=== PATIENT | male | born 1980 | race Caucasian/White ===

== ENCOUNTER → 2016-03-24 | Outpatient (CLI) | payer OTHER ==
--- NOTE | 2016-04-10 02:12 | ECWPNPC ---
PATIENT NAME: NE GALAN : 1980 GENDER: MALE VISIT DATE: 03/24/2016 DISCHARGE DATE: 03/24/16 1042 VISIT LOCKED DATE TIME: PHYSICIAN: ABBI BERGER RESOURCE: ABBI BERGER REASON FOR APPOINTMENT 1. LBP HISTORY OF PRESENT ILLNESS HISTORY OF PRESENT ILLNESS: PAIN THE PATIENT DESCRIBES THE PAIN... FALL RISK SCREENING: SCREENING :NO FALLS IN THE PAST YEAR TODAY'S VISIT: NOTES: RATES PAIN TODAY 8/10. DESCRIBES PAIN CONTANT AND CENTERED IN LOW BACK. NOTES DEPRESSION HAS BEEN A FACTOR. TO SEE DR WALTON 04/09/16 FOR SURGICAL EVAL. . CURRENT MEDICATIONS TAKING EFFEXOR XR 150 MG CAPSULE EXTENDED RELEASE 24 HOUR 1 CAPSULE WITH FOOD ORALLY ONCE A DAY TAKING METHOCARBAMOL 750 MG TABLET 1 TABLET ORALLY EVERY 8 HRS TAKING TYLENOL/CODEINE #3 300-30 MG TABLET 1 TABLET NEEDED ORALLY EVERY 6 HRS PRN PAIN MDD=4 TAKING CLONAZEPAM 1 MG TABLET 1 TABLET ORALLY A THREE TAKING AMBIEN 10 MG TABLET 1 TABLET AT BEDTIME NEEDED ORALLY ONCE A DAY NOT-TAKING TRAZODONE HCL 150 MG TABLET 1 TABLET AT BEDTIME ORALLY ONCE A DAY NOT-TAKING TRAMADOL HCL 50 MG TABLET 1-2 TABLET NEEDED ORALLY EVERY 6 HRS MDD=6 MEDICATION LIST REVIEWED AND RECONCILED WITH THE PATIENT PAST MEDICAL HISTORY KIDNEY STONES 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 RUIZ SMOKER MORBID OBESITY ALLERGIES CHANTIX: IRRITABILITY: SIDE EFFECTS SOCIAL HISTORY GENERAL: TOBACCO USE ARE YOU A:NONSMOKER LEARNING BARRIERS / SPECIAL NEEDS ORIENTED TO PLAN OF CARE: PATIENT, PAIN MANAGEMENT PATIENT, ORIENTED TO PLAN OF CARE: PATIENT, PAIN MANAGEMENT PATIENT. NEW PATIENT PAIN DIARY TODAY'S VISITNOTES FROM 0-10, WHAT LEVEL IS YOUR PAIN TODAY?0 PAIN CLINIC PFS, CLERGY, PUBLIC HEALTH REFERRALS PFS REFERRAL NEEDED?NO CLERGY REFERRAL NEEDED?NO PUBLIC HEALTH REFERRAL NEEDED?NO WAS THE PROVIDER NOTIFIED OF ANY PERTINENT INFO?NO PFS REFERRAL NEEDED?NO CLERGY REFERRAL NEEDED?NO PUBLIC HEALTH REFERRAL NEEDED?NO WAS THE PROVIDER NOTIFIED OF ANY PERTINENT INFO?NO REVIEW OF SYSTEMS CONSTITUTIONAL: ANY CHANGE IN YOUR MEDICAL CONDITION? NO . CHILLS NO . FEVER NO . INFECTION: DO YOU HAVE NEW INFECTIONS? NO . DO YOU HAVE HISTORY OF MRSA? NO . MUSCULOSKELETAL: ANY NEW PATTERNS OF PAIN OR NUMBNESS? NO . GASTROENTEROLOGY: ANY NEW CHANGE IN BOWEL CONTROL? NO . GENITOURINARY: ANY NEW CHANGE IN BLADDER CONTROL? NO . IS THERE A CHANCE YOU COULD BE ? NO . HEMATOLOGY/LYMPH: DO YOU TAKE ANY BLOOD THINNERS? (FOR EXAMPLE- COUMADIN, PLAVIX, AGGRENOX, PLATEL, PRADAXA, OR XARELTO) NO . WHEN WAS YOUR LAST DOSE? DATE: TIME: . NEUROLOGY: HAVE YOU FALLEN IN THE PAST 6 MONTHS? NO . ANY NEW EXTREMITY NUMBNESS OR WEAKNESS? NO . CARDIOLOGY: DO YOU HAVE A PACEMAKER OR DEFIBRILLATOR? NO . RESPIRATORY: HAVE YOU BEEN SICK IN THE PAST WEEK? NO . FEVER NO . FLU LIKE SYMPTOMS? NO . COUGH NO . INTEGUMENTARY: DO YOU HAVE ANY RASHES OR OPEN SORES? NO . ALLERGIC/IMMUNO: ARE YOU ALLERGIC TO SHELLFISH OR IV DYE? NO . ANY NEW ALLERGIES? NO . PSYCHIATRIC: DO YOU HAVE THOUGHTS OF HURTING YOURSELF OR SOMEONE ELSE? NO . ARE YOU ABUSED, NEGLECTED, OR IN AN UNSAFE ENVIRONMENT? NO . ENDOCRINOLOGY: ARE YOU DIABETIC? NO . OTHER: DO YOU NEED ANY PRESCRIPTIONS? NO . IF YES, PLEASE LIST: ____ . ANY NEW PROBLEMS WITH YOUR MEDICATIONS? NO . WHEN DID YOU LAST EAT? ____ . WHEN DID YOU LAST DRINK? ____ . WHAT DID YOU LAST DRINK? ____ . NAME OF PERSON DRIVING YOU HOME? ____ . DO YOU HAVE ANY OTHER QUESTIONS OR CONCERNS NO . REVIEWED BY: PROVIDER: ABBI LEVINE . VITAL SIGNS WT 273 LBS, HT 69.5 IN, BMI 39.73 INDEX, BP 128/75 MM HG, HR 83 /MIN, RR 16 /MIN, TEMP 96.8 F, OXYGEN SAT % 96, SAFE IN ENV? (Y/N) YES, NA INITIALS TL 0958, REVIEWED BY: KG. EXAMINATION GENERAL EXAMINATION: PSYCHALERT , ORIENTED X 3 , , AFFECT FLAT, GOOD EYE CONTACT. LUNGS:CLEAR TO AUSCULTATION BILATERALLY. HEART:HEART RATE REGULAR. MUSCULOSKELETAL:TRIGGER POINTS:, ELICITED WITH PALPATION OVER LUMBAR PARAVERTEBRAL MUSCLES AND INTO THE SACRUM. RESTRICTION OF ROM IN THIS AREA, ELICITED WITH PALPATION OVER MID THORACIC MUSCLES WITH RESTRICITON OF RESPIRATORY EXCURCIOM NOTED. POINT TENDERNESS OVER LSP AND ACROSS THE LSA. DECREASED MUSCLE STRENGTH IN BOTH LOWER EXTREMITIES PROXIMALLY, LEFT GREATER THAN RIGHT. LEFT HIP FLEXION INCREASES BACK PAIN. ASSESSMENTS LUMBAR DISC DISPLACEMENT WITHOUT MYELOPATHY - M51.26 (PRIMARY) MYALGIA - M79.1 LUMBAR FACET ARTHROPATHY - M46.96 TREATMENT LUMBAR DISC DISPLACEMENT WITHOUT MYELOPATHY REFILL TRAMADOL HCL TABLET, 50 MG, 1-2 TABLET NEEDED, ORALLY, EVERY 6 HRS MDD=6, 30 DAY(S), 180, REFILLS 1 STOP METHOCARBAMOL TABLET, 750 MG, 1 TABLET, ORALLY, EVERY 8 HRS REFILL TYLENOL/CODEINE #3 TABLET, 300-30 MG, 1 TABLET NEEDED, ORALLY, EVERY 6 HRS PRN PAIN MDD=4, 30 DAY(S), 120, REFILLS 1 NOTES: FOLLOWUP WITH COUNSELOR FOR DEPRESSION. CLINICAL NOTES: ISTOP REGISTRY REVIEWED AND DEMNOSTRATES COMPLLIANCE. BRINGS IN MEDICATIONS WHICH IS APPROPRIATE FOR WHAT WAS DISPENSED. RECENT URINE TOXICOLOGY REVIEWED. NO UNAUTHORIZED MEDICATIONS. NO ILLICIT SUBSTANCES AND PRESCRIBED MEDICATIONS WERE PRESENT. PROCEDURE CODES FA211 ESTABILISHED PATIENT [facility] CHARGE DISPOSITION & COMMUNICATION FOLLOW UP 7 WEEKS ELECTRONICALLY SIGNED BY ANAI DIXON ON 04/09/2016 AT 12:23 PM EST DISCLAIMER : THIS IS A VISIT SUMMARY EXTRACTED FROM THE [employer] CHART. IT IS NOT A COPY OF THE [employer] PROGRESS NOTE. SEVERO
== END ==
LOC: M PAIN 10:00
PROVIDERS: ATTEND Nurse Practitioner Family
DX: M51.26 Other intervertebral disc displacement, lumbar region (principal); M79.1 Myalgia; M46.96 Unspecified inflammatory spondylopathy, lumbar region; G89.29 Other chronic pain; Z79.891 Long term (current) use of opiate analgesic; Z79.899 Other long term (current) drug therapy; F32.9 Major depressive disorder, single episode, unspecified; E66.9 Obesity, unspecified; Z72.0 Tobacco use

== ENCOUNTER → 2016-04-17 | Outpatient (CLI) | payer OTHER ==
--- NOTE | 2016-04-17 10:32 | REP ---
CERVICAL SPINE, SEVEN VIEWS: HISTORY: Spondylosis. COMPARISON: 02/28/2013 There is no acute fracture. The intervertebral discs are normal in height. Osteophytes are present on C4 through C6. The neural foramina are patent. There are 2 mm of anterior subluxation of C3 on C4 and C4 on C5 with flexion. This is not seen in neutral or extension radiographs. IMPRESSION: Degenerative change as described above. Signed by Blaine Oavlles MD 04/17/2016 12:58 P
--- NOTE | 2016-04-17 10:34 | REP ---
LUMBAR SPINE, SEVEN VIEWS: HISTORY: Spondylosis. COMPARISON: 06/22/2015. There is no acute fracture or subluxation. The L3-4 through L5-S1 intervertebral discs are decreased in height consistent with disc degeneration. The facet joints are normal in appearance. IMPRESSION: Degenerative change as described above. Signed by Blaine Ovalles MD 04/17/2016 12:58 P
== END ==
LOC: M LAB 08:55
PROVIDERS: ATTEND Neurological Surgery
DX: M47.16 Other spondylosis with myelopathy, lumbar region (principal)

== ENCOUNTER → 2016-04-21 | Outpatient (CLI) | payer OTHER ==
--- NOTE | 2016-04-21 09:31 | REP ---
MR CERVICAL SPINE WITHOUT CONTRAST: HISTORY: Spondylosis. COMPARISON: 09/06/2014 Bilateral uncinate process hypertrophy is present at the C3-4 level. This produces mild narrowing of the C3 neural foramina. A small central disc protrusion is present of the C4-5 level. There is minimal effacement of the thecal sac without spinal cord compression. The C4 neural foramina are patent. A disc bulge is present at the C5-6 level. There is minimal effacement of the thecal sac without spinal cord compression. Uncinate process hypertrophy is present on the right. This produces minimal narrowing of the right C5 neural foramen. The left C5 neural foramen is patent. There is no other disc bulge or herniation. The remaining neural foramina are patent. The spinal cord is normal in signal intensity. There is no intradural extramedullary lesion. Normal signal intensity is present in the cervical vertebral bodies. A cystic structure is present in the left retropharyngeal parapharyngeal area at the C2-3 level. The cyst measures 2.4 cm in transverse by 1 cm in AP x 4.6 cm in cephalocaudal dimensions. IMPRESSION: 1. There is cervical spondylosis at the C3-4 through C5-6 levels without spinal cord compression. There is no significant change compared to the previous study. 2. There is a cystic structure in the retro and parapharyngeal space. This may represent a branchial cleft cyst. Signed by Blaine Ovalles MD 04/21/2016 09:53 A
== END ==
LOC: M RAD 07:38
PROVIDERS: ATTEND Neurological Surgery
DX: M47.9 Spondylosis, unspecified (principal)

== ENCOUNTER → 2016-05-12 | Outpatient (CLI) | payer OTHER | LOC: M PAIN 09:00 | PROVIDERS: ATTEND Nurse Practitioner Family | DX: Z09 Encounter for follow-up examination after completed treatment for conditions other than malignant neoplasm (principal); G89.29 Other chronic pain; M51.26 Other intervertebral disc displacement, lumbar region; M79.1 Myalgia; M46.96 Unspecified inflammatory spondylopathy, lumbar region; F32.9 Major depressive disorder, single episode, unspecified; F41.9 Anxiety disorder, unspecified; F43.10 Post-traumatic stress disorder, unspecified; R48.0 Dyslexia and alexia; F17.200 Nicotine dependence, unspecified, uncomplicated; E66.9 Obesity, unspecified; Z68.41 Body mass index [BMI] 40.0-44.9, adult; Z88.8 Allergy status to other drugs, medicaments and biological substances; Z79.899 Other long term (current) drug therapy ==

== ENCOUNTER → 2016-06-20 | Outpatient (CLI) | payer OTHER ==
--- NOTE | 2016-06-24 00:53 | ECWPNPC ---
PATIENT NAME: NE GALAN : 1980 GENDER: MALE VISIT DATE: 06/20/2016 DISCHARGE DATE: 06/20/16 1144 VISIT LOCKED DATE TIME: PHYSICIAN: ABBI BERGER RESOURCE: ABBI BERGER REASON FOR APPOINTMENT 1. BACK HISTORY OF PRESENT ILLNESS HISTORY OF PRESENT ILLNESS: PAIN THE PATIENT DESCRIBES THE PAIN... FALL RISK SCREENING: SCREENING :NO FALLS IN THE PAST YEAR TODAY'S VISIT: NOTES: RATES PAIN LEVEL TODAY 8/10. DESCRIBES PAIN CONSTANT, AND IS CENTERED OVER LOW BACK AND SACRUM. STATES FELL LAST NIGHT - RIGHT HIP GAVE. HAS SEEN DR CEE AND HAD SOME RESULTS REVIEWED. WAS TOLD HE WILL NEED SURGERY IN THE FUTURE. . CURRENT MEDICATIONS TAKING EFFEXOR XR 150 MG CAPSULE EXTENDED RELEASE 24 HOUR 275MG CAPSULE WITH FOOD ORALLY ONCE A DAY IN P.M. TAKING CLONAZEPAM 1 MG TABLET 1 TABLET ORALLY A THREE TAKING AMBIEN 5 MG TABLET 1 TABLET AT BEDTIME NEEDED ORALLY BEFORE BEDTIME TAKING EFFEXOR XR 75 MG CAPSULE EXTENDED RELEASE 24 HOUR 1 CAPSULE WITH FOOD ORALLY ONCE A DAY IN A.M. TAKING TRAMADOL HCL 50 MG TABLET 1-2 TABLET NEEDED ORALLY EVERY 6 HRS MDD=6 TAKING TYLENOL WITH CODEINE #3 300-30 MG TABLET 1 TABLET NEEDED ORALLY EVERY 6 HRS PRN PAIN MDD=4 NOT-TAKING TRAZODONE HCL 150 MG TABLET 1 TABLET AT BEDTIME ORALLY ONCE A DAY MEDICATION LIST REVIEWED AND RECONCILED WITH THE PATIENT PAST MEDICAL HISTORY KIDNEY STONES CHOLELITHIASIS PER CT - S/P LAP MAXINE 05/2013 DEPRESSION/ANXIETY PTSD ADMITTED TO [facility] 2006 DYSLEXIA DDD LUMBAR SPINE - DR. RUIZ SMOKER MORBID OBESITY ALLERGIES CHANTIX: IRRITABILITY: SIDE EFFECTS SOCIAL HISTORY GENERAL: TOBACCO USE ARE YOU A:CURRENT SMOKER HOW MANY CIGARETTES A DAY DO YOU SMOKE?6-10 HOW SOON AFTER YOU WAKE UP DO YOU SMOKE YOUR FIRST CIGARETTE?WITHIN 5 MIN HOW OFTEN DO YOU SMOKE CIGARETTES?EVERY DAY PATIENT COUNSELED ON THE DANGERS OF TOBACCO USE AND URGED TO QUIT:05/12/2016 ARE YOU INTERESTED IN QUITTING?NOT READY TO QUIT COUNSELED THE PATIENT ON SMOKING EFFECTS, EDUCATION [id number]/27/2017 LEARNING BARRIERS / SPECIAL NEEDS ORIENTED TO PLAN OF CARE: PATIENT, PAIN MANAGEMENT PATIENT, ORIENTED TO PLAN OF CARE: PATIENT, PAIN MANAGEMENT PATIENT. NEW PATIENT PAIN DIARY TODAY'S VISIT NOTES, FROM 0-10, WHAT LEVEL IS YOUR PAIN TODAY? 0. PAIN CLINIC PFS, CLERGY, PUBLIC HEALTH REFERRALS PFS REFERRAL NEEDED? NO, CLERGY REFERRAL NEEDED? NO, PUBLIC HEALTH REFERRAL NEEDED? NO, WAS THE PROVIDER NOTIFIED OF ANY PERTINENT INFO? NO, PFS REFERRAL NEEDED? NO, CLERGY REFERRAL NEEDED? NO, PUBLIC HEALTH REFERRAL NEEDED? NO, WAS THE PROVIDER NOTIFIED OF ANY PERTINENT INFO? NO. PT TO SEE PCP ON 07/07/16 TO DISCUSS QUITTING SMOKING AND TREATMENT OPTIONS. REVIEW OF SYSTEMS CONSTITUTIONAL: ANY CHANGE IN YOUR MEDICAL CONDITION? NO . CHILLS NO . FEVER NO . INFECTION: DO YOU HAVE NEW INFECTIONS? NO . DO YOU HAVE HISTORY OF MRSA? NO . MUSCULOSKELETAL: ANY NEW PATTERNS OF PAIN OR NUMBNESS? NO . GASTROENTEROLOGY: ANY NEW CHANGE IN BOWEL CONTROL? NO . GENITOURINARY: ANY NEW CHANGE IN BLADDER CONTROL? NO . IS THERE A CHANCE YOU COULD BE ? NO . HEMATOLOGY/LYMPH: DO YOU TAKE ANY BLOOD THINNERS? (FOR EXAMPLE- COUMADIN, PLAVIX, AGGRENOX, PLATEL, PRADAXA, OR XARELTO) NO . WHEN WAS YOUR LAST DOSE? DATE: TIME: . NEUROLOGY: HAVE YOU FALLEN IN THE PAST 6 MONTHS? YES, PT STATES RIGHT HIP GAVE OUT, FELL DOWN YESTERDAY, PT DENIES INJURY, NO ED VISIT . ANY NEW EXTREMITY NUMBNESS OR WEAKNESS? NO . CARDIOLOGY: DO YOU HAVE A PACEMAKER OR DEFIBRILLATOR? NO . RESPIRATORY: HAVE YOU BEEN SICK IN THE PAST WEEK? NO . FEVER NO . FLU LIKE SYMPTOMS? NO . COUGH NO . INTEGUMENTARY: DO YOU HAVE ANY RASHES OR OPEN SORES? NO . ALLERGIC/IMMUNO: ARE YOU ALLERGIC TO SHELLFISH OR IV DYE? NO . ANY NEW ALLERGIES? NO . PSYCHIATRIC: DO YOU HAVE THOUGHTS OF HURTING YOURSELF OR SOMEONE ELSE? NO . ARE YOU ABUSED, NEGLECTED, OR IN AN UNSAFE ENVIRONMENT? NO . ENDOCRINOLOGY: ARE YOU DIABETIC? NO . OTHER: DO YOU NEED ANY PRESCRIPTIONS? NO . IF YES, PLEASE LIST: ____ . ANY NEW PROBLEMS WITH YOUR MEDICATIONS? NO . WHEN DID YOU LAST EAT? ____ . WHEN DID YOU LAST DRINK? ____ . WHAT DID YOU LAST DRINK? ____ . NAME OF PERSON DRIVING YOU HOME? ____ . DO YOU HAVE ANY OTHER QUESTIONS OR CONCERNS NO . REVIEWED BY: PROVIDER: ABIB LEVINE . VITAL SIGNS WT 280.6 LBS, HT 69.5 IN, BMI 40.84 INDEX, BP 124/75 MM HG, HR 90 /MIN, RR 16 /MIN, TEMP 98.4 F, OXYGEN SAT % 96%, SAFE IN ENV? (Y/N) Y, REVIEWED BY: EM. EXAMINATION GENERAL EXAMINATION: PSYCHALERT , ORIENTED X 3 , , AFFECT FLAT, GOOD EYE CONTACT. LUNGS:CLEAR TO AUSCULTATION BILATERALLY. HEART:HEART RATE REGULAR. MUSCULOSKELETAL:TRIGGER POINTS:, ELICITED WITH PALPATION OVER LUMBAR PARAVERTEBRAL MUSCLES AND INTO THE SACRUM. RESTRICTION OF ROM IN THIS AREA, ELICITED WITH PALPATION OVER MID THORACIC MUSCLES WITH RESTRICITON OF RESPIRATORY EXCURCIOM NOTED. POINT TENDERNESS OVER LSP AND ACROSS THE LSA. DECREASED MUSCLE STRENGTH IN BOTH LOWER EXTREMITIES PROXIMALLY, LEFT GREATER THAN RIGHT. LEFT HIP FLEXION INCREASES BACK PAIN. 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 POOL THERAPY WHEN AVAILABLE. CONTINUE CURRENT MEDS. KEEP WALKING AND MOVING. , ISTOP REGISTRY REVIEWED AND DEMNOSTRATES COMPLLIANCE. BRINGS IN MEDICATIONS WHICH IS APPROPRIATE FOR WHAT WAS DISPENSED. RECENT URINE TOXICOLOGY REVIEWED. NO UNAUTHORIZED MEDICATIONS. NO ILLICIT SUBSTANCES AND PRESCRIBED MEDICATIONS WERE PRESENT. PROCEDURE CODES FA211 ESTABILISHED PATIENT [facility] CHARGE DISPOSITION & COMMUNICATION FOLLOW UP 2 MONTHS ELECTRONICALLY SIGNED BY ANAI DIXON ON 06/23/2016 AT 08:47 AM EDT DISCLAIMER : THIS IS A VISIT SUMMARY EXTRACTED FROM THE [employer] CHART. IT IS NOT A COPY OF THE [employer] PROGRESS NOTE. ROSYD
== END ==
LOC: M PAIN 10:40
PROVIDERS: ATTEND Nurse Practitioner Family
DX: G89.29 Other chronic pain (principal); M51.26 Other intervertebral disc displacement, lumbar region; M79.1 Myalgia; M46.96 Unspecified inflammatory spondylopathy, lumbar region; F32.9 Major depressive disorder, single episode, unspecified; F41.9 Anxiety disorder, unspecified; F43.10 Post-traumatic stress disorder, unspecified; R48.0 Dyslexia and alexia; M51.36 Other intervertebral disc degeneration, lumbar region; F17.210 Nicotine dependence, cigarettes, uncomplicated; E66.01 Morbid (severe) obesity due to excess calories; Z68.41 Body mass index [BMI] 40.0-44.9, adult; Z88.8 Allergy status to other drugs, medicaments and biological substances; Z79.891 Long term (current) use of opiate analgesic; Z79.899 Other long term (current) drug therapy

== ENCOUNTER → 2016-07-11 | Outpatient (CLI) | payer OTHER ==
[~2016-07-11] MED LIST: ISOVUE-370 76% 100ML VIAL (Q9967) As Ordered ONE
--- NOTE | 2016-07-11 13:55 | REP ---
CT NECK WITH CONTRAST: HISTORY: Localized swelling. Contrast: Isovue 370, 75 mL. A hypodense mass is present arising along the left posterolateral wall of the oropharynx. There is anterior extension into the tongue base. There is very minimal extension across the midline posteriorly. There is inferior extension along the left posterolateral wall of the hypopharynx. There is superior extension to the level of the soft palate. There is mild mass effect on the natalie- and upper hypopharynx. The nasopharynx, larynx and subglottic trachea are normal in appearance. The salivary and thyroid glands are normal. An enlarged lymph node 1.3 cm in width is present in the left internal jugular chain at the level of the oropharynx. Small lymph nodes less than 1 cm in size are present in the right internal jugular chain, posterior triangles, submandibular and submental areas. The lung apices are clear. The visualized sinuses are clear. IMPRESSION: There is a hypodense mass present along from the left posterolateral wall of the oropharynx as described above. This may represent a hypodense neoplasm or possibly a cystic mass. . There is mild mass effect on the natalie- and upper hypopharynx. MR of the neck without and with contrast is recommended for further evaluation. Signed by Blaine Ovalles MD 07/11/2016 02:04 P
== END ==
LOC: M RAD 12:13
PROVIDERS: ATTEND Otolaryngology
DX: R22.1 Localized swelling, mass and lump, neck (principal)

== ENCOUNTER → 2016-08-08 | Outpatient (CLI) | payer OTHER | LOC: M RAD 11:05 | PROVIDERS: ATTEND Otolaryngology | DX: R22.1 Localized swelling, mass and lump, neck (principal) ==

== ENCOUNTER → 2016-08-14 | Outpatient (CLI) | payer OTHER ==
[~2016-08-14] MED LIST changes: +BACT800T5 PO; +BAYE325T12 PO; +CLON0.3T PO; +CLON1TAB PO; +DEPA1TAB3 PO; +DIGO0.25 PO; +HYDR50TA70 PO; -ISOVUE-370 76% 100ML VIAL (Q9967) As Ordered ONE; +METO1TAB7 PO; +PAXI30TA11 PO; +TRAM50TA2 PO; +TYLETAB14 PO
--- NOTE | 2016-09-03 04:17 | ECWPNPC ---
PATIENT NAME: NE GALAN : 1980 GENDER: MALE VISIT DATE: 08/14/2016 DISCHARGE DATE: 08/14/16919 VISIT LOCKED DATE TIME: PHYSICIAN: ABBI BERGER RESOURCE: ABBI BERGER REASON FOR APPOINTMENT 1. LOW BACK HISTORY OF PRESENT ILLNESS HISTORY OF PRESENT ILLNESS: PAIN THE PATIENT DESCRIBES THE PAIN... FALL RISK SCREENING: SCREENING :NO FALLS IN THE PAST YEAR TODAY'S VISIT: NOTES: RATES PAIN TODAY 8/10. DESCRIBES PAIN CONSTANT. PAIN REMAINS CENTERED OVER LOW BACK AND SACRUM WITH NO SPECIFIC RADIATION TO THE LEGS. WAS NOT ABLE TO TOLERATE LODINE - MED PRODUCED SIGNIFICANT DIZZINESS WHICH RESOLVED AFTER DISCONTINUING MED.. CURRENT MEDICATIONS TAKING CLONAZEPAM 1 MG TABLET 1 TABLET ORALLY THREE TIMES A DAY NEEDED TAKING TRAMADOL HCL 50 MG TABLET 1-2 TABLET NEEDED ORALLY EVERY 6 HRS MDD=6 TAKING TYLENOL WITH CODEINE #3 300-30 MG TABLET 1 TABLET NEEDED ORALLY EVERY 6 HRS PRN PAIN MDD=4 TAKING PAXIL 20 MG TABLET 1 TABLET IN THE MORNING ORALLY ONCE A DAY TAKING CLONIDINE HCL 0.1 MG TABLET 1 TAB ORALLY THREE TIMES A DAY NEEDED TAKING CHANTIX 1 MG TABLET 1 TABLET ORALLY TWICE A DAY NOT-TAKING EFFEXOR XR 150 MG CAPSULE EXTENDED RELEASE 24 HOUR 275MG CAPSULE WITH FOOD ORALLY ONCE A DAY IN P.M. NOT-TAKING AMBIEN 5 MG TABLET 1 TABLET AT BEDTIME NEEDED ORALLY BEFORE BEDTIME NOT-TAKING EFFEXOR XR 75 MG CAPSULE EXTENDED RELEASE 24 HOUR 1 CAPSULE WITH FOOD ORALLY ONCE A DAY IN A.M. NOT-TAKING DICLOFENAC SODIUM 75 MG TABLET DELAYED RELEASE 1 TABLET WITH FOOD OR MILK ORALLY TWICE A DAY NOT-TAKING ETODOLAC 400 MG TABLET 1 TABLET WITH FOOD ORALLY TWICE A DAY NOT-TAKING TRAZODONE HCL 150 MG TABLET 1 TABLET AT BEDTIME ORALLY ONCE A DAY MEDICATION LIST REVIEWED AND RECONCILED WITH THE PATIENT PAST MEDICAL HISTORY KIDNEY STONES CHOLELITHIASIS PER CT - S/P LAP MAXINE 05/2013 DEPRESSION/ANXIETY PTSD ADMITTED TO [facility] 2006 DYSLEXIA DDD LUMBAR SPINE - DR. RUIZ SMOKER MORBID OBESITY ALLERGIES N.K.D.A. SOCIAL HISTORY GENERAL: TOBACCO USE ARE YOU A:CURRENT SMOKER HOW MANY CIGARETTES A DAY DO YOU SMOKE?6-10 HOW SOON AFTER YOU WAKE UP DO YOU SMOKE YOUR FIRST CIGARETTE?WITHIN 5 MIN HOW OFTEN DO YOU SMOKE CIGARETTES?EVERY DAY PATIENT COUNSELED ON THE DANGERS OF TOBACCO USE AND URGED TO QUIT:05/12/2016 ARE YOU INTERESTED IN QUITTING?NOT READY TO QUIT COUNSELED THE PATIENT ON SMOKING EFFECTS, EDUCATION [id number]/27/2017 LEARNING BARRIERS / SPECIAL NEEDS ORIENTED TO PLAN OF CARE: PATIENT, PAIN MANAGEMENT PATIENT, ORIENTED TO PLAN OF CARE: PATIENT, PAIN MANAGEMENT PATIENT. NEW PATIENT PAIN DIARY TODAY'S VISIT NOTES, FROM 0-10, WHAT LEVEL IS YOUR PAIN TODAY? 0. PAIN CLINIC PFS, CLERGY, PUBLIC HEALTH REFERRALS PFS REFERRAL NEEDED?NO CLERGY REFERRAL NEEDED?NO PUBLIC HEALTH REFERRAL NEEDED?NO HAS THE PATIENT BEEN EDUCATED REGARDING HIS/HER PLAN OF CARE?YES HAS THE PATIENT BEEN EDUCATED REGARDING PAIN, THE RISK FOR PAIN, THE IMPORTANCE OF EFFECTIVE PAIN MANAGEMENT, AND THE PAIN ASSESSMENT PROCESS?YES PT TO SEE PCP ON 07/07/16 TO DISCUSS QUITTING SMOKING AND TREATMENT OPTIONS. REVIEW OF SYSTEMS REVIEWED BY: PROVIDER: ABBI LEVINE . CONSTITUTIONAL: ANY CHANGE IN YOUR MEDICAL CONDITION? NO . CHILLS NO . FEVER NO . INFECTION: DO YOU HAVE NEW INFECTIONS? NO . DO YOU HAVE HISTORY OF MRSA? NO . MUSCULOSKELETAL: ANY NEW PATTERNS OF PAIN OR NUMBNESS? NO . GASTROENTEROLOGY: ANY NEW CHANGE IN BOWEL CONTROL? NO . GENITOURINARY: ANY NEW CHANGE IN BLADDER CONTROL? NO . IS THERE A CHANCE YOU COULD BE ? NO . HEMATOLOGY/LYMPH: DO YOU TAKE ANY BLOOD THINNERS? (FOR EXAMPLE- COUMADIN, PLAVIX, AGGRENOX, PLATEL, PRADAXA, OR XARELTO) NO . WHEN WAS YOUR LAST DOSE? DATE: TIME: . NEUROLOGY: HAVE YOU FALLEN IN THE PAST 6 MONTHS? NO . ANY NEW EXTREMITY NUMBNESS OR WEAKNESS? NO . CARDIOLOGY: DO YOU HAVE A PACEMAKER OR DEFIBRILLATOR? NO . RESPIRATORY: HAVE YOU BEEN SICK IN THE PAST WEEK? NO . FEVER NO . FLU LIKE SYMPTOMS? NO . DO YOU USE ANY TYPE OF TOBACCO (SMOKE, SMOKELESS, CHEW)? ON CHANTIX - WORKING ON SMOKING CESSATION . COUGH YES . INTEGUMENTARY: DO YOU HAVE ANY RASHES OR OPEN SORES? NO . ALLERGIC/IMMUNO: ARE YOU ALLERGIC TO SHELLFISH OR IV DYE? NO . ANY NEW ALLERGIES? NO . PSYCHIATRIC: DO YOU HAVE THOUGHTS OF HURTING YOURSELF OR SOMEONE ELSE? NO . ARE YOU ABUSED, NEGLECTED, OR IN AN UNSAFE ENVIRONMENT? NO . ENDOCRINOLOGY: ARE YOU DIABETIC? NO . OTHER: DO YOU NEED ANY PRESCRIPTIONS? NO . IF YES, PLEASE LIST: ____ . ANY NEW PROBLEMS WITH YOUR MEDICATIONS? NO . WHEN DID YOU LAST EAT? ____ . WHEN DID YOU LAST DRINK? ____ . WHAT DID YOU LAST DRINK? ____ . NAME OF PERSON DRIVING YOU HOME? ____ . DO YOU HAVE ANY OTHER QUESTIONS OR CONCERNS NO . VITAL SIGNS WT 277 LBS, HT 69.5 IN, BMI 40.31 INDEX, BP 133/81 MM HG, HR 87 /MIN, RR 18 /MIN, TEMP 97.4 F, OXYGEN SAT % 96%, NA INITIALS SC 08:47, REVIEWED BY: AMBAR. EXAMINATION GENERAL EXAMINATION: PSYCHALERT , ORIENTED X 3 , , AFFECT FLAT, GOOD EYE CONTACT. LUNGS:CLEAR TO AUSCULTATION BILATERALLY. HEART:HEART RATE REGULAR. MUSCULOSKELETAL:TRIGGER POINTS:, ELICITED WITH PALPATION OVER LUMBAR PARAVERTEBRAL MUSCLES AND INTO THE SACRUM. RESTRICTION OF ROM IN THIS AREA, ELICITED WITH PALPATION OVER MID THORACIC MUSCLES WITH RESTRICITON OF RESPIRATORY EXCURCIOM NOTED. POINT TENDERNESS OVER LSP AND ACROSS THE LSA. DECREASED MUSCLE STRENGTH IN BOTH LOWER EXTREMITIES PROXIMALLY, LEFT GREATER THAN RIGHT. LEFT HIP FLEXION INCREASES BACK PAIN. ASSESSMENTS LUMBAR DISC DISPLACEMENT WITHOUT MYELOPATHY - M51.26 (PRIMARY) MYALGIA - M79.1 LUMBAR FACET ARTHROPATHY - M46.96 TREATMENT LUMBAR DISC DISPLACEMENT WITHOUT MYELOPATHY STOP ETODOLAC TABLET, 400 MG, 1 TABLET WITH FOOD, ORALLY, TWICE A DAY NOTES: CONTINUE EXERCISES AND STRETCHES. KEEP UP GOOD WORK WITH QUITTING SMOKING. PROCEDURE CODES FA211 ESTABILISHED PATIENT [facility] CHARGE DISPOSITION & COMMUNICATION FOLLOW UP 7 WEEKS (REASON: LOW BACK) ELECTRONICALLY SIGNED BY ANAI DIXON ON 09/02/2016 AT 08:23 AM EDT DISCLAIMER : THIS IS A VISIT SUMMARY EXTRACTED FROM THE [employer] CHART. IT IS NOT A COPY OF THE [employer] PROGRESS NOTE. MTDD
== END ==
LOC: M PAIN 09:00
PROVIDERS: ATTEND Nurse Practitioner Family
DX: G89.29 Other chronic pain (principal); M51.26 Other intervertebral disc displacement, lumbar region; M46.96 Unspecified inflammatory spondylopathy, lumbar region; M79.1 Myalgia; F32.9 Major depressive disorder, single episode, unspecified; F41.9 Anxiety disorder, unspecified; F43.10 Post-traumatic stress disorder, unspecified; F34.1 Dysthymic disorder; F63.81 Intermittent explosive disorder; F17.210 Nicotine dependence, cigarettes, uncomplicated; E66.9 Obesity, unspecified; F79 Unspecified intellectual disabilities; Z68.41 Body mass index [BMI] 40.0-44.9, adult; Z79.891 Long term (current) use of opiate analgesic; Z79.899 Other long term (current) drug therapy

== ENCOUNTER 2016-09-11 10:12 | Observation (INO) | payer OTHER ==
[~2016-09-11] VITALS: Ht 170.2 cm; Wt 122.5 kg
[2016-09-11] VITALS (7 sets, daily range): BP systolic 100–125; BP diastolic 56–74
[~2016-09-11 10:12] MED LIST changes: -BACT800T5 PO; -BAYE325T12 PO; -DIGO0.25 PO; -HYDR50TA70 PO; -METO1TAB7 PO; +METOPROLOL TART 25 MG TABLET PO SCH
[2016-09-11] MEDS ORDERED: dexameTHASONE 4 MG/ML 1ML VIAL (J1100) IV ONE (10:15)
[2016-09-11] MEDS ORDERED: LR 1,000 ML IV ONE (10:15)
[2016-09-11] MEDS ORDERED: fentaNYL 100 MCG/2 ML INJECTION (J3010) As Ordered ONE (13:35)
[2016-09-11] MEDS ORDERED: MIDAZOLAM INJ 2 MG/2 ML VIAL (J2250) As Ordered ONE (13:35)
[2016-09-11] MEDS ORDERED: LIDOCAINE W/EPINEPHRINE 1% 20ML VIAL As Ordered ONE (13:46)
[2016-09-11] MEDS ORDERED: BACITRACIN OINT 30GM As Ordered ONE (13:47)
[2016-09-11] MEDS ORDERED: ESMOLOL INJ 100MG/10ML VIAL As Ordered ONE ×2 (14:09→14:31)
[2016-09-11] MEDS ORDERED: PHENYLephrine HCL 500 MCG/5 ML (100MCG/ML) SYRINGE (J2370) As Ordered ONE ×2 (14:10→21:38)
[2016-09-11] MEDS ORDERED: METOPROLOL 5 MG/5 ML VIAL As Ordered ONE ×2 (14:15→16:14)
[2016-09-11] MEDS ORDERED: DIGOXIN INJ 0.5 MG/2 ML AMP (J1160) As Ordered ONE ×2 (14:43→17:21)
[2016-09-11] MEDS ORDERED: METOCLOPRAMIDE INJ 10MG/2ML VIAL (J2765) As Ordered ONE (15:19)
[2016-09-11] MEDS ORDERED: ONDANSETRON 4MG/2ML VIAL (J2405) As Ordered ONE (15:19)
[2016-09-11] MEDS ORDERED: METOCLOPRAMIDE INJ 10MG/2ML VIAL (J2765) IV PRN (15:30)
[2016-09-11] MEDS ORDERED: fentaNYL 100 MCG/2 ML INJECTION (J3010) IV PRN (15:30)
[2016-09-11] MEDS ORDERED: LR 1,000 ML IV SCH (15:30)
[2016-09-11] MEDS ORDERED: ONDANSETRON 4MG/2ML VIAL (J2405) IV PRN (15:30)
[2016-09-11] MEDS ORDERED: DIGOXIN 0.25 MG TAB PO ONE (15:45)
[2016-09-11] MEDS ORDERED: METOPROLOL TART 25 MG TABLET As Ordered ONE (16:15)
[2016-09-11 16:27] LABS: MEAN CORPUSCULAR HEMOGLOBIN 30.8 pg (27.0-33.0); MEAN CORPUSCULAR HGB CONC 34.1 g/dl (32.0-36.5); MEAN CORPUSCULAR VOLUME 90.4 fl (80.0-96.0); RED CELL DISTRIBUTION WIDTH 12.4 % (11.5-14.5)
[2016-09-11] MEDS ORDERED: NS 1,000 ML IV SCH (16:30)
[2016-09-11] MEDS ORDERED: traMADol 50 MG TAB PO PRN (16:30)
[2016-09-11] MEDS ORDERED: clonazePAM 1 MG TAB PO PRN (16:30)
[2016-09-11 16:48] LABS: ANION GAP 6 MEQ/L (8-16); BLOOD UREA NITROGEN 15 MG/DL (7-18); CALCIUM LEVEL 8.6 MG/DL (8.5-10.1); CARBON DIOXIDE LEVEL 28 MEQ/L (21-32); CHLORIDE LEVEL 105 MEQ/L (98-107); CREATININE FOR GFR 1.07 MG/DL (0.70-1.30); GLOMERULAR FILTRATION RATE > 60.0 (>60); GLUCOSE, FASTING 131 MG/DL (70-105); MAGNESIUM LEVEL 2.1 MG/DL (1.8-2.4); SODIUM LEVEL 139 MEQ/L (136-145)
[2016-09-11] MEDS ORDERED: METOPROLOL 5 MG/5 ML VIAL IV SCH (16:50)
--- NOTE | 2016-09-11 18:59 | REP ---
PORTABLE CHEST: AP portable view of the chest is performed and compared to prior study of 10/18/2013. There is mild cardiomegaly. There is mild streaky bibasilar atelectasis/infiltrate. The mediastinal silhouette is unchanged. IMPRESSION: Mild cardiomegaly. Mild bibasilar atelectasis/infiltrate. Signed by Dony Gee MD 09/11/2016 07:15 P
--- NOTE | 2016-09-11 20:00 | REPUSA ---
Clinical history: Pain, swelling. Findings: The common femoral, superficial femoral, popliteal, and other deep venous structures compre ss normally and demonstrate normal color Doppler flow. Normal venous waveforms with augmentation are seen. Incidental finding of a large right inguinal lymph node is noted measuring 3.6 x 1.7 x 1.6 cm. Impression: No evidence of deep vein thrombosis in the femoral popliteal venous system.
[2016-09-11 20:16] LABS: VENOUS O2 SATURATION 92.8 % (60.0-80.0); VENOUS PARTIAL PRESSURE CO2 40.7 mmHg (38.0-50.0); VENOUS PARTIAL PRESSURE O2 63.6 mmHg (30.0-50.0); VENOUS STANDARD HCO3 22.7 MEQ/L; VENOUS TOTAL CO2 24.4 MEQ/L (24.0-28.0)
--- NOTE | 2016-09-11 20:21 | HPEPDOC ---
Medical History and Physical Date of Admission Sep 11, 2016 at 18:08 History and Physical PRIMARY CARE PROVIDER: Dr. Trejo ATTENDING: Nan Bennett MD CHIEF COMPLAINT: Rapid heart rate HISTORY OF PRESENT ILLNESS: This is a 35-year-old male past medical history of obesity, PTSD, depression, tobacco abuse, who presented to the OR for resection of a posterior pharyngeal cyst/mass and had gone into atrial fibrillation with rapid ventricular response. Dr. Arndt had called me stating that the patient is in rapid A. fib and has been in contact with Dr. Echavarria who recommended digoxin. Upon evaluation of the patient, the patient was noted to be in atrial fibrillation with RVR and very hypotensive, requiring phenylephrine drip. I did speak with Dr. Echavarria, who recommended another dose of digoxin, as well as a stat echocardiogram, and hold off on cardioversion. The patient's potassium was greater than 4, magnesium greater than 2. TSH within normal limits. EKG with no acute ST changes however in atrial fibrillation with rapid ventricular response. The patient had remained asymptomatic, denied chest pain/shortness of breath/palpitations. The patient will be admitted to the intensive care unit. I have also discussed the case with Dr. Mejia, we will place a central line, so that the patient may continue pressors until the etiology of the patient's underlying severe hypotension is known. Patient denied cough/fevers/chills/nausea/vomiting/rashes/diarrhea. No sources of infection. He did state that he had symptoms of palpitations many times prior to presentation, however had not had this worked up. PAST MEDICAL HISTORY: As per HPI PAST SURGICAL HISTORY: Tonsillectomy, left knee surgery, cholecystectomy, lithotripsy SOCIAL HISTORY: Occasionally smokes tobacco, on Chantix. Denies alcohol or illicit drug use. FAMILY HISTORY: No family history of heart disease ALLERGIES: Please see below. REVIEW OF SYSTEMS: HEENT: Denies sore throat/headache CARDIOVASCULAR: Denies chest pain. + palpitations RESPIRATORY: Denies shortness of breath/cough GASTROINTESTINAL: denies nausea/vomiting GENITOURINARY: Denies dysuria/urinary urgency. MUSCULOSKELETAL: Denies myalgias/arthralgias NEUROLOGICAL: Denies any focal weakness HOME MEDICATIONS: Please see below. PHYSICAL EXAMINATION: Vitals: (see below) General: No acute distress, laying comfortably in bed. HEENT: Moist mucous membranes. Neck: No JVD noted. Patient does have an enlarged neck L>R from this retro pharyngeal cyst/tumor. No lymphadenopathy. Cardiac: Irregularly irregular. Tachycardic. No murmurs Pulm: Diminished breath sounds at the bases b/l. No wheezing, rhonchi Abd: NT/ND + BS. Obese Ext: No edema or cyanosis LABORATORY DATA: See below. IMAGING: CXR 09/11/16 IMPRESSION: Mild cardiomegaly. Mild bibasilar atelectasis/ infiltrate. MICROBIOLOGY: Please see below. ASSESSMENT/PLAN: 1. Shock, in the setting of atrial fibrillation with rapid ventricular response. Patient had received greater than 3 L of fluids in the OR/PACU. His chest x-ray relieved pulmonary congestion, and fluids will be held at this time. Patient had received digoxin/esmolol/metoprolol with minimal improvement of his heart rate. We will continue the patient on pressor therapy and monitor in the intensive care unit. The patient is currently having an echocardiogram stat to rule out cardiac tamponade/systolic heart failure, with Dr. Echavarria on consultation. He remains asymptomatic. No chest pain/palpitations/shortness of breath. His cardiac enzymes are thus far negative. His magnesium is greater than 2 and his potassium is greater than 4. His TSH is within normal limits. ? Reaction to anesthesia. Given this presentation, we will also rule out a pulmonary embolism as well with a CTA of the chest. 2. History of depression - continue home meds 3. History of tobacco abuse- cessation counseling 4. History of nephrolithiasis status post lithotripsy 5. 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 We'll need to follow-up with Dr. Navarro. 6. Had been taking clonidine for anxiety and sleep?? Will d/c. May have contributed the hypotension. Monitor for rebound HTN. 7. ?JANELLE - will need outpt sleep study DVT prophylaxis- heparin subcutaneous Patient is in critical condition, and being monitored in the intensive care unit. Patient will be followed by Dr. uJnie Mckeon starting 09/12/16 at 7 AM. Vital Signs Vital Signs Date Time Temp Pulse Resp B/P (MAP) Pulse Ox O2 Delivery O2 Flow Rate FiO2 09/11/16 17:51 97.0 136 16 112/58 (76) 95 Room Air 09/11/16 17:18 3 Laboratory Data Labs 24H Laboratory Tests 2 09/11/16 16:06: Anion Gap 6L, Glomerular Filtration Rate > 60.0, Blood Urea Nitrogen 15, Creatinine 1.07, Sodium Level 139, Potassium Level 5.0, Chloride Level 105, Carbon Dioxide Level 28, Calcium Level 8.6, Total Creatine Kinase 131, Magnesium Level 2.1, Creatine Kinase MB 1.0, Creatine Kinase MB Relative Index 0.76, Troponin I < 0.02, Thyroid Stimulating Hormone (TSH) 0.394 CBC/BMP Laboratory Tests 09/11/16 16:06 Red Blood Count 4.86, Mean Corpuscular Volume 90.4, Mean Corpuscular Hemoglobin 30.8, Mean Corpuscular Hemoglobin Concent 34.1, Red Cell Distribution Width 12.4 , Calcium Level 8.6, Total Creatine Kinase 131 Home Medications Scheduled (Depakote) 500 Mg Tab, 1,000 MG PO BID Clonidine Hydrochloride (Clonidine HCl) 0.3 Mg Tab, 0.3 MG PO QHS Paroxetine Hydrochloride (Paxil) 30 Mg Tab, 30 MG PO DAILY Scheduled PRN Acetaminophen/Codeine (Tylenol/Codeine #3 300-30 mg) 1 Tab Tab, 1 TAB PO Q4HP PRN for PAIN Clonazepam (Clonazepam) 1 Mg Tab, 1 MG PO TIDP PRN for ANXIETY/AGITATION Tramadol HCl (Tramadol HCl) 50 Mg Tab, 50 MG PO Q6HP PRN for PAIN Allergies Coded Allergies: Varenicline (Verified Allergy, Unknown, 10/20/13) NAN BENNETT MD Sep 11, 2016 20:20
[2016-09-11] MEDS ORDERED: PHENYLEPHRINE HCL INJ 50 MG in D5W 500 ML IV SCH ×2 (20:30)
[2016-09-11] MEDS ORDERED: ISOVUE-370 76% 100ML VIAL (Q9967) As Ordered ONE (20:40)
[2016-09-11] MEDS ORDERED: cloNIDine 0.1 MG TAB PO SCH (21:00)
[2016-09-11] MEDS ORDERED: LevoFLOXacin IV 500 MG in APPROPRIATE DILUENT 1 EA IV SCH (21:00)
[2016-09-11] MEDS ORDERED: SODIUM CHLORIDE 0.9% 1000 ML IV ONE (21:00)
[2016-09-11] MEDS ORDERED: AMIODARONE 200 MG TAB (PACERONE) PO ONE (21:15)
--- NOTE | 2016-09-11 21:20 | REPUSA ---
CT angiogram of the chest Clinical statement: Chest pain and shortness of breath. Technique: Multiple axial CT images were obtained from the thoracic inlet through the upper abdomen a fter a bolus administration of nonionic intravenous contrast. Coronal and sagittal reconstructions we re also obtained. No comparison is available. Findings: The pulmonary arteries are well-opacified with contrast, with no intraluminal filling defec ts to suggest embolism. The thoracic aorta is unremarkable. Thyroid gland is within normal limits. Th ere is no thoracic lymphadenopathy. There are no pericardial or pleural effusions. There are linear i nfiltrate in the lower lungs bilaterally. Limited imaging of the upper abdomen is unremarkable. There are no suspicious osseous lesions. Impression: 1. No evidence of pulmonary embolism. 2. Bilateral lower lobe infiltrate/atelectasis.
--- NOTE | 2016-09-11 21:22 | ECHO ---
DATE OF PROCEDURE: 09/11/2016 REFERRING PHYSICIAN: Dr. Elton Bennett INDICATION: 1. Atrial fibrillation. 2. Hypotension, unspecified. HEIGHT: 67 inches. WEIGHT: 270 pounds. 2D MEASUREMENTS: Aortic root: 3.6 cm Proximal ascending aorta: 3.0 cm Left atrium: 4.0 cm Ventricular septum: 1.29 cm Posterior wall: 1.27 cm Left ventricle diastole: 4.5 cm Left ventricle systole: 3.3 cm Right ventricle: 4.5 cm Inferior vena cava: 1.8 cm with more than 50% respiratory variation DOPPLER MEASUREMENTS: Aortic valve velocity: 106 cm/s LVOT velocity: 76.7 cm/s LVOT VTI: 13.2 cm Mitral deceleration time: 250 ms Pulmonary artery systolic pressure: 41 mmHg DESCRIPTION: Rhythm was atrial fibrillation with moderately rapid ventricular rate. This was a moderately technically difficult echocardiogram. This was a 2D, M-mode, color flower Doppler and pulse wave Doppler examination. CONCLUSIONS: 1. Normal left ventricle internal dimensions. Mild concentric left ventricle hypertrophy. 2. Normal left ventricular (LV) wall motion and wall thickening. Normal LV systolic function. Left ventricular ejection fraction (LVEF) 60% by visual estimate. Unable to assess LV diastolic function due to presence of atrial fibrillation with rapid ventricular response. 3. Normal left atrial size. 4. Inferior vena cava was somewhat suspicious for volume depletion. 5. Normal right ventricle size and systolic function. 6. Suggestive of moderate elevation of pulmonary artery systolic pressure (41 mmHg). 7. Appearance of a tiny pericardial effusion. No diastolic chamber collapse. Copies To: Dr. Elton Arndt
[2016-09-11] MEDS ORDERED: HEPARIN SOD (PORCINE) 5000 UNITS/ML VIAL IV ONE (21:30)
[2016-09-11] MEDS ORDERED: HEPARIN SOD (PORCINE) 5000 UNITS/ML VIAL IV SCH (21:30)
[2016-09-11] MEDS ORDERED: PHENYLEPHRINE INJ 10MG/ML VIAL (J2370) As Ordered ONE (21:38)
[2016-09-11] MEDS ORDERED: HEPARIN 25,000 UNITS/250 ML D5W BAG (100 UNITS/ML) IV SCH (22:00)
[2016-09-11] MEDS: DIVALPROEX 500 MG TAB PO SCH (22:46)
--- NOTE | 2016-09-11 22:54 | CR ---
DATE OF CONSULTATION: 09/11/2016 CARDIOLOGY CONSULTATION REASON FOR CONSULTATION: Atrial fibrillation with rapid ventricular rate. Hypotension unspecified. HISTORY OF THE PRESENT ILLNESS: Mr. Antonio Zambrano is a pleasant 35-year-old man with morbid obesity who was here earlier today to undergo resection of a posterior pharyngeal cyst/mass. During induction, he was noted to have atrial fibrillation with rapid ventricular response and patient was hypotensive. Heart rate control did not respond well to intravenous (IV) beta jessica. He was then given a dose of digoxin IV without complete control. The surgery was canceled, and the patient was admitted to the intensive care unit. He has been placed on phenylephrine IV for blood pressure support. The patient has no knowledge of any prior heart disease. No knowledge of any prior atrial fibrillation. No history of systemic hypertension. He takes clonidine 0.3 mg nightly to help him sleep and for anxiety and his last dose was last evening. CARDIAC SYMPTOM STATUS: The patient is aware of brief palpitations infrequently in the evening at bedtime prior to taking clonazepam and clonidine and once he takes these medications, these palpitations resolve. No presyncope or syncope. No lightheadedness. No exertional dyspnea. No leg or ankle swelling. No chest, neck, jaw or extremity pain, pressure, tightness, squeezing or heaviness with or without exertion. No embolic events. No intermittent claudication. PAST MEDICAL AND SURGICAL HISTORY: Morbid obesity. Post-traumatic stress disorder (PTSD). Depression. Tobacco use disorder. Posterior pharyngeal cyst/mass. Anxiety. Insomnia. No history of thyroid disease. Status post tonsillectomy. Prior left knee surgery. Status post lithotripsy. Status post cholecystectomy. SOCIAL HISTORY: Occasional cigarette smoking. No alcohol. No illicit drug use. Legally . Resident of [place]. FAMILY HISTORY: No family history of heart disease. REVIEW OF SYSTEMS: Palpitations as noted above. All other 10-point review of systems otherwise negative. ADVERSE DRUG REACTIONS: CHANTIX. MEDICATIONS PRIOR TO ADMISSION: - Tylenol #3 one tablet every 4 hours as needed for pain - clonazepam 1 mg three times a day as needed for anxiety or agitation - clonidine 0.3 mg nightly - Depakote 1000 mg twice a day - Paxil 30 mg daily - tramadol 50 mg every 6 hours as needed for pain The patient's present medications in the hospital are as follows: - aspirin 325 mg daily - Paxil 30 mg daily - Depakote 1000 mg twice a day - phenylephrine currently running at 5 mcg per minute IV - clonazepam 1 mg three times a day as needed for anxiety/agitation - tramadol 50 mg every 6 hours as needed for pain - IV normal saline at 100 mL per hour IV - He received a dose of digoxin 0.25 mg IV at 1545 hours today PHYSICAL EXAMINATION: Pleasant morbidly obese man who appears his chronologic age, who was not in any respiratory or psychologic distress. Height 67 inches, weight 122.5 kg, body mass index (BMI) 42.3. Respiratory rate 10, blood pressure 116/68 on phenylephrine 5 mcg per minute, pulse 95 (irregularly irregular). Temperature 97.0. Oxygen saturation 96% on room air. No conjunctival pallor, scleral icterus or xanthomas. Edentulous. Oral mucosa was moist and without pallor or cyanosis. Jugular venous pulsations were at 5 cm. Trachea midline. No palpable thyroid. No clubbing, nail bed cyanosis or splinter hemorrhages. No skin lesions, skin pallor or icterus. Oriented to person, place and time. Mood and affect normal. Curvature of the spine normal. Gait not appropriate to test at this time due to hypotension for which he is on phenylephrine IV. Gross motor strength and tone appear normal. No muscle atrophy, fasciculations, or tremors. Respiratory expansion effort was good. No crackles or wheezes. No palpable apex beat. No left parasternal lifts, heaves, thrills, or palpable heart sounds. First and second heart sounds were variable intensity. No S3 or murmurs or pericardial friction rubs. Carotids were normal in volume and contour and without bruits. No palpable abdominal aorta but difficult to palpate due to abdominal obesity. No abdominal bruits. Femoral pulses difficult to palpate due to obesity. Pedal pulses normal. No lower extremity edema. No varicose veins. Abdomen was obese, soft, nontender with normal bowel sounds. No hepatosplenomegaly but difficult to assess due to abdominal obesity. Liver span unable to determine due to abdominal obesity. Stool for occult blood to be ordered as the patient has been started on IV heparin. I have independently visualized the patient's portable AP sitting chest x-ray from 09/11/2016 at 6:35 p.m. Possible cardiomegaly but difficult to know because of a portable AP technique. No pulmonary vascular redistribution. No peribronchial cuffing. Increased lung markings possibly because of suboptimal inspiration. No pleural effusions. No pneumothorax. No alveolar edema. Laboratory work 09/11/2016 was reviewed. WBC 8.0, hemoglobin 15.0, hematocrit 43.9, platelets 190. Sodium 139, potassium 5.0, chloride 105, CO2 28, BUN 15, creatinine 1.07, estimated GFR greater than 60, glucose 131, magnesium 2.1, CPK total 131, CPK-MB 1.0, troponin I less than 0.02, BNP 52.7, TSH 0.394. Electrocardiogram 09/11/2016 at 1539 hours shows atrial fibrillation with rapid ventricular response, heart rate 129 beats per minute (BPM), poor R wave progression, minor nonspecific T wave abnormalities. No prior ECG available for comparison. ASSESSMENT AND RECOMMENDATIONS: 1. Atrial fibrillation. I suspect atrial fibrillation is paroxysmal, but I have no absolute proof of that. His left atrium on the echocardiogram Doppler was 4.0 cm, which suggests normal left atrial size. He does not drink alcohol, and his thyroid-stimulating hormone (TSH) was normal. His CHADS-VASc score is 0. Options for control of rapid ventricular response are limited because of the patient's hypotension. Because of hypotension, I do not wish to use beta jessica or verapamil or diltiazem. He has started to respond to digoxin IV. I am going to place the patient on IV heparin for now. I will attempt to convert the patient with some amiodarone IV. Because of hypotension for which he is on phenylephrine IV, I will not give amiodarone IV because of risk of provoking further hypotension. 2. Hypotension. The hypotension likely has a large contribution from large dose of clonidine. The patient takes clonidine 0.3 mg nightly with his last dose yesterday night, and he has no history of systemic hypertension. In the future, it is my recommendation that this patient not be placed on clonidine. As time passes, I think the clonidine will progressively wear off and his blood pressure will improve. He may have had some hypotension related to relative hypovolemia because he had been nothing by mouth (n.p.o.) prior to his operation. Loss of atrial kick and the mildly rapid ventricular rate may also contribute a role to the hypotension. Agree with continuation of IV normal saline at 100 mL per hour IV and agree with use of phenylephrine IV for blood pressure support. Will continue to follow with you. Echocardiogram Doppler has been reported under separate cover. 3. Cardiomegaly. The echocardiogram Doppler shows mild concentric left ventricular hypertrophy. Right ventricle appears to be at the upper limits of normal in size. Normal left ventricular (LV) systolic function. 4. Morbid obesity. Recommend the patient be on a DASH diet while in the hospital. Long-term, I would like to see him on a more whole food, plant-based diet. Copy To: Torito Trejo, Physician Equipment Driver Margaret Macario, BRENDA
[2016-09-11] MEDS ORDERED: diphenhydrAMINE 50 MG CAP PO ONE (23:00)
[2016-09-12] VITALS (7 sets, daily range): BP systolic 111–126; BP diastolic 56–75
--- NOTE | 2016-09-12 00:31 | ECGEPIP ---
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
[2016-09-12 04:35] LABS: MEAN CORPUSCULAR HEMOGLOBIN 31.1 pg (27.0-33.0); MEAN CORPUSCULAR VOLUME 88.8 fl (80.0-96.0); RED CELL DISTRIBUTION WIDTH 12.5 % (11.5-14.5)
[2016-09-12 04:53] LABS: ANION GAP 10 MEQ/L (8-16); BLOOD UREA NITROGEN 13 MG/DL (7-18); CALCIUM LEVEL 8.4 MG/DL (8.5-10.1); CARBON DIOXIDE LEVEL 27 MEQ/L (21-32); CHLORIDE LEVEL 104 MEQ/L (98-107); CREATININE FOR GFR 1.04 MG/DL (0.70-1.30); GLOMERULAR FILTRATION RATE > 60.0 (>60); GLUCOSE, FASTING 118 MG/DL (70-105); MAGNESIUM LEVEL 2.2 MG/DL (1.8-2.4); POTASSIUM SERUM 4.2 MEQ/L (3.5-5.1); SODIUM LEVEL 141 MEQ/L (136-145)
[2016-09-12] MEDS: DIVALPROEX 500 MG TAB PO SCH (08:10)
[2016-09-12] MEDS ORDERED: METOPROLOL SUCC (TopROL XL) 50MG **XL** TAB PO SCH (09:00)
[2016-09-12] MEDS ORDERED: ASPIRIN 325 MG TAB PO SCH (09:00)
[2016-09-12] MEDS ORDERED: PARoxetine 10MG TABLET PO SCH (09:00)
[2016-09-12] MEDS ORDERED: DIGOXIN 0.25 MG TAB PO SCH (09:00)
[2016-09-12] MEDS ORDERED: BAYE325T12 PO (09:21)
[2016-09-12] MEDS ORDERED: DIGO0.25 PO (09:21)
[2016-09-12] MEDS ORDERED: METO1TAB7 PO (09:21)
--- NOTE | 2016-09-12 17:04 | ECGEPIP ---
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
--- NOTE | 2016-09-13 17:05 | DSES ---
DATE OF ADMISSION: 09/11/2016 DATE OF DISCHARGE: 09/12/2016 CONSULTATIONS: Dr. Echavarria, cardiology. DISCHARGE DIAGNOSIS: Hypotension. SECONDARY DIAGNOSES: 1. Atrial fibrillation with rapid ventricular response. 2. Tobacco abuse. 3. Depression. 4. Pharyngeal cyst/mass. 5. Posttraumatic stress disorder (PTSD). 6. Anxiety. HOSPITAL COURSE: The patient is a 35-year-old man who presented to the operating room (OR) for resection of posterior pharyngeal cyst/mass. During induction he was found to be in atrial fibrillation with rapid ventricular response, and hypotensive. Dr. Arndt contacted Dr. Echavarria directly, who recommended digoxin. The patient was hypotensive and started on phenylephrine drip. The patient received additional digoxin, as well as a stat echocardiogram. The patient's electrolytes were checked and he was found to be optimized with potassium greater than four and magnesium greater than two. He got a thyroid stimulating hormone (TSH) within normal limits, and an electrocardiogram (EKG) that showed atrial fibrillation with rapid ventricular response without any ST changes. The patient remained asymptomatic during this episode, and he was admitted to the medical intensive care unit. While in the medical intensive care unit, the patient was received esmolol and metoprolol. It was of note the patient had recently started clonidine 0.3 mg at bedtime two days prior to his hospitalization. He had also been nothing by mouth, and there was concern that this may have resulted in his hypotension and the patient's atrial fibrillation. Overnight, the patient's blood pressure stabilized. He was weaned off pressors in the early evening hours of 09/11, and remained hemodynamically stable overnight. This morning, once the patient's blood pressure remained stable. He has been started on digoxin and metoprolol daily. His heart rate is well controlled. He again remains completely asymptomatic, doing well. SUBJECTIVE: Today the patient reports he feels great. He denies palpitations, lightheadedness, dizziness, nausea, vomiting, chest pressure, fevers, chills. OBJECTIVE: VITAL SIGNS: Temperature 98.7, he has remained afebrile. Heart rate 91 with activity just above 100, blood pressure 119/56, oxygen saturation 94% on room air. GENERAL: He is a middle-aged man, obese. He is lying in bed at a 30-degree angle. He is awake, alert, oriented times three. He has pink hair, numerous tattoos, and piercings. He does not appear to be in any distress whatsoever. HEENT: Cranial nerves II through XII are grossly intact. He has moist mucous membranes. No elevation of central venous pressure (CVP). CARDIOVASCULAR: S1, S2, irregularly irregular. He is not tachycardic at the time of my exam. RESPIRATORY: Clear. ABDOMEN: Obese. EXTREMITIES: No clubbing, cyanosis or edema. LABORATORY DATA: WBC 14.0 up from 8 yesterday, hemoglobin 15.0, platelet count 245. Chemistry panel: Sodium 141, potassium 4.2, chloride 104, bicarbonate 27, BUN 13, creatinine 1.0. He had two sets of cardiac enzymes which were negative. BNP which was unremarkable. TSH was within normal limits. He did have an arterial blood gas (ABG) which revealed a normal pH, pCO2, and elevated pO2 of 63.6. He had a UA which was unremarkable. Blood cultures have been drawn and are currently pending. IMAGING: The patient did undergo a CT angiography of the chest which did not reveal any pulmonary embolism (PE), but bilateral lower lobe infiltrates/atelectasis. He did have a vascular ultrasound that was negative for any deep venous thrombosis (DVT ) bilaterally. He did undergo a chest x-ray as well, which revealed mild cardiomegaly, mild bibasilar atelectasis/infiltrates. ASSESSMENT AND PLAN: This is a 35-year-old man with resolved hypotension and newly-discovered atrial fibrillation with rapid ventricular response. 1. Hypotension. The patient was asymptomatic throughout the whole episode. He was recently started on clonidine 0.3 mg at bedtime. He had taken two doses of this and had been nothing by mouth. I have spoken with Dr. Echavarria and we fell that this may have been the most influential etiology for his hypotension. With cessation of this medication, it has resolved. For now, would simply monitor. 2. Atrial fibrillation with rapid ventricular response. There is some concern that the rapid ventricular response may have played a role in the hypotension as well. He is now rate controlled. He received digoxin. His TSH is normal and echocardiogram completed at bedside which did not reveal any significant etiology or valvular dysfunction for his atrial fibrillation. His CHADS-VASC score is zero. Dr. Echavarria briefly had the patient on a heparin drip, but he will be discharged on full-dose aspirin. We will discontinue the heparin drip. He is rate controlled with digoxin 0.25 mg daily and metoprolol succinate 50 mg daily. He will followup in Dr. Echavarria's office within one month. He is asymptomatic. It is difficult to say if this is acute, given he has a history of complaints of intermittent palpitations. Dr. Echavarria and I suspect this may be more of a chronic problem. 3. Cardiomegaly with mild left concentric left ventricular hypertrophy (LVH). He was actually hypotensive earlier in his stay. He may have some longstanding essential hypertension. He has been started on metoprolol succinate. Would avoid clonidine in the future. 4. Morbid obesity. He has been recommended for a DASH diet, and exercise regimen has been suggested. 5. Depression. Continue with Paxil. 6. Anxiety. Continue with Klonopin and Depakote. 7. Chronic pain. Continue with tramadol and Tylenol No.3. 8. Tobacco abuse. Cessation counseling provided. DISPOSITION: The patient is hemodynamically stable. He is at his functional baseline. His clinical symptom has resolved. He is being discharged home to the care of his family. He is to followup with his primary care provider (PCP) within seven days , and followup with ears, nose, and throat (ENT) within two weeks. Followup with cardiology within one month. His activity is as prior to admission. His diet is as prior to admission. He is to return to the ER if symptoms worsen. DISCHARGE MEDICATIONS: - aspirin 325 mg daily - digoxin 0.25 mg daily - metoprolol succinate 50 mg daily - Tylenol No.3 300/30 one tablet every four hours as needed for pain - clonazepam 1 mg three times a day as needed for anxiety, agitation - Depakote 1000 mg twice a day - paroxetine 30 mg daily - tramadol 50 mg every six hours as needed for pain Greater than 30 minutes were spent organizing disposition. ROSYD
[2016-12-01] MEDS ORDERED: HYDR50TA70 PO (13:36)
== END 2016-09-12 11:22 | disposition home or self-care (01) ==
LOC: M SDC 10:12 → M ICU 18:08
PROVIDERS: ADMIT Internal Medicine; ATTEND Otolaryngology
DX: I48.91 Unspecified atrial fibrillation (principal); I95.9 Hypotension, unspecified; Z53.09 Procedure and treatment not carried out because of other contraindication; J39.2 Other diseases of pharynx; F17.210 Nicotine dependence, cigarettes, uncomplicated; E66.01 Morbid (severe) obesity due to excess calories; F43.10 Post-traumatic stress disorder, unspecified; F41.9 Anxiety disorder, unspecified; F31.9 Bipolar disorder, unspecified; G47.00 Insomnia, unspecified; G89.29 Other chronic pain; Z79.82 Long term (current) use of aspirin; Z79.899 Other long term (current) drug therapy
CPT/HCPCS: 31512; 36415; 71010; 71275; 80048; 81001; 82550; 82553; 82803; 83605; 83735; 83880; 84443; 85027; 85730; 87040; 93000; 93970; 96374; 96375; 96376; J1100; J1160; J1956; J2250; J2370; J2405; J2765; J3010; Q9967

== ENCOUNTER → 2016-10-03 | Outpatient (CLI) | payer OTHER ==
[~2016-10-03] MED LIST changes: +BACT800T5 PO; +BAYE325T12 PO; +DIGO0.25 PO; +HYDR50TA70 PO; +METO1TAB7 PO; -METOPROLOL TART 25 MG TABLET PO SCH
--- NOTE | 2016-10-19 23:25 | ECWPNPC ---
PATIENT NAME: NE GALAN : 1980 GENDER: MALE VISIT DATE: 10/03/2016 DISCHARGE DATE: 10/03/16 1016 VISIT LOCKED DATE TIME: PHYSICIAN: ABBI BERGER RESOURCE: ABBI BERGER REASON FOR APPOINTMENT 1. LOW BACK HISTORY OF PRESENT ILLNESS HISTORY OF PRESENT ILLNESS: PAIN THE PATIENT DESCRIBES THE PAIN... FALL RISK SCREENING: SCREENING :NO FALLS IN THE PAST YEAR TODAY'S VISIT: NOTES: RATES PAIN TODAY 6/10. DESCRIBES PAIN CONSTANT AND IS CENTERED IN LOW BACK.WAS RECENTLY HOSPITALIZED FOR RESECTION/REMOVAL OF PHARANGEAL MASS- WAS FOUND TO HAVE AFIB AND IS NOW SEEING CARDIOLOGY.. CURRENT MEDICATIONS TAKING CLONAZEPAM 1 MG TABLET 1 TABLET ORALLY THREE TIMES A DAY NEEDED TAKING TRAMADOL HCL 50 MG TABLET 1-2 TABLET NEEDED ORALLY EVERY 6 HRS MDD=6 TAKING TYLENOL WITH CODEINE #3 300-30 MG TABLET 1 TABLET NEEDED ORALLY EVERY 6 HRS PRN PAIN MDD=4 TAKING PAXIL 20 MG TABLET 1 TABLET IN THE MORNING ORALLY ONCE A DAY TAKING METOPROLOL SUCCINATE ER 50 MG TABLET EXTENDED RELEASE 24 HOUR 1 TABLET ORALLY ONCE A DAY TAKING DIGOXIN 250 MCG TABLET 1 TABLET ORALLY ONCE A DAY TAKING ASPIRIN 325 MG TABLET DELAYED RELEASE 1 TABLET ORALLY ONCE A DAY NOT-TAKING CLONIDINE HCL 0.1 MG TABLET 1 TAB ORALLY THREE TIMES A DAY NEEDED NOT-TAKING CHANTIX 1 MG TABLET 1 TABLET ORALLY TWICE A DAY NOT-TAKING EFFEXOR XR 150 MG CAPSULE EXTENDED RELEASE 24 HOUR 275MG CAPSULE WITH FOOD ORALLY ONCE A DAY IN P.M. NOT-TAKING AMBIEN 5 MG TABLET 1 TABLET AT BEDTIME NEEDED ORALLY BEFORE BEDTIME NOT-TAKING EFFEXOR XR 75 MG CAPSULE EXTENDED RELEASE 24 HOUR 1 CAPSULE WITH FOOD ORALLY ONCE A DAY IN A.M. 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 CONSTITUTIONAL: ANY CHANGE IN YOUR MEDICAL CONDITION? YES, IS NOW ON HEART MEDICATION FOR REGULATING HEART RATE. . CHILLS NO . FEVER NO . INFECTION: DO YOU HAVE NEW INFECTIONS? NO . DO YOU HAVE HISTORY OF MRSA? NO . MUSCULOSKELETAL: ANY NEW PATTERNS OF PAIN OR NUMBNESS? NO . GASTROENTEROLOGY: ANY NEW CHANGE IN BOWEL CONTROL? NO . GENITOURINARY: ANY NEW CHANGE IN BLADDER CONTROL? NO . IS THERE A CHANCE YOU COULD BE ? NO . HEMATOLOGY/LYMPH: DO YOU TAKE ANY BLOOD THINNERS? (FOR EXAMPLE- COUMADIN, PLAVIX, AGGRENOX, PLATEL, PRADAXA, OR XARELTO) NO . WHEN WAS YOUR LAST DOSE? DATE: TIME: . NEUROLOGY: HAVE YOU FALLEN IN THE PAST 6 MONTHS? NO . ANY NEW EXTREMITY NUMBNESS OR WEAKNESS? NO . CARDIOLOGY: DO YOU HAVE A PACEMAKER OR DEFIBRILLATOR? NO . RESPIRATORY: HAVE YOU BEEN SICK IN THE PAST WEEK? NO . FEVER NO . FLU LIKE SYMPTOMS? NO . COUGH NO . INTEGUMENTARY: DO YOU HAVE ANY RASHES OR OPEN SORES? NO . ALLERGIC/IMMUNO: ARE YOU ALLERGIC TO SHELLFISH OR IV DYE? NO . ANY NEW ALLERGIES? NO . PSYCHIATRIC: DO YOU HAVE THOUGHTS OF HURTING YOURSELF OR SOMEONE ELSE? NO . ARE YOU ABUSED, NEGLECTED, OR IN AN UNSAFE ENVIRONMENT? NO . ENDOCRINOLOGY: ARE YOU DIABETIC? NO . OTHER: DO YOU NEED ANY PRESCRIPTIONS? NO . IF YES, PLEASE LIST: ____ . ANY NEW PROBLEMS WITH YOUR MEDICATIONS? NO . WHEN DID YOU LAST EAT? ____ . WHEN DID YOU LAST DRINK? ____ . WHAT DID YOU LAST DRINK? ____ . NAME OF PERSON DRIVING YOU HOME? ____ . DO YOU HAVE ANY OTHER QUESTIONS OR CONCERNS NO . VITAL SIGNS WT 277 LBS, HT 69.5 IN, BMI 40.31 INDEX, BP 132/71 MM HG, HR 80 /MIN, RR 18 /MIN, TEMP 98.4 F, OXYGEN SAT % 97%, NA INITIALS AW 0922, REVIEWED BY: CM. EXAMINATION GENERAL EXAMINATION: PSYCHALERT , ORIENTED X 3 , , AFFECT FLAT, GOOD EYE CONTACT. LUNGS:CLEAR TO AUSCULTATION BILATERALLY. HEART:HEART RATE REGULAR. MUSCULOSKELETAL:TRIGGER POINTS:, ELICITED WITH PALPATION OVER LUMBAR PARAVERTEBRAL MUSCLES AND INTO THE SACRUM. RESTRICTION OF ROM IN THIS AREA, ELICITED WITH PALPATION OVER MID THORACIC MUSCLES WITH RESTRICITON OF RESPIRATORY EXCURCIOM NOTED. POINT TENDERNESS OVER LSP AND ACROSS THE LSA. DECREASED MUSCLE STRENGTH IN BOTH LOWER EXTREMITIES PROXIMALLY, LEFT GREATER THAN RIGHT. LEFT HIP FLEXION INCREASES BACK PAIN. ASSESSMENTS LUMBAR DISC DISPLACEMENT WITHOUT MYELOPATHY - M51.26 (PRIMARY) MYALGIA - M79.1 LUMBAR FACET ARTHROPATHY - M46.96 TREATMENT LUMBAR DISC DISPLACEMENT WITHOUT MYELOPATHY REFILL TRAMADOL HCL TABLET, 50 MG, 1-2 TABLET NEEDED, ORALLY, EVERY 6 HRS MDD=6, 30 DAY(S), 180, REFILLS 1 NOTES: CONTINUE CURRENT MEDS. WALK TOLERATED. PROCEDURE CODES FA211 ESTABILISHED PATIENT MERGED WITH [facility] CHARGE DISPOSITION & COMMUNICATION FOLLOW UP 2 MONTHS (REASON: BACK PAIN) ELECTRONICALLY SIGNED BY ANAI DIXON ON 10/19/2016 AT 01:43 PM EDT DISCLAIMER : THIS IS A VISIT SUMMARY EXTRACTED FROM THE [employer] CHART. IT IS NOT A COPY OF THE [employer] PROGRESS NOTE. SEVERO
== END ==
LOC: M PAIN 09:15
PROVIDERS: ATTEND Nurse Practitioner Family
DX: G89.29 Other chronic pain (principal); M51.26 Other intervertebral disc displacement, lumbar region; M46.96 Unspecified inflammatory spondylopathy, lumbar region; M79.1 Myalgia; F32.9 Major depressive disorder, single episode, unspecified; F41.9 Anxiety disorder, unspecified; F43.10 Post-traumatic stress disorder, unspecified; F17.200 Nicotine dependence, unspecified, uncomplicated; E66.9 Obesity, unspecified; Z68.41 Body mass index [BMI] 40.0-44.9, adult; Z79.82 Long term (current) use of aspirin; Z79.899 Other long term (current) drug therapy

== ENCOUNTER 2016-10-09 22:03 | Emergency (ER) | payer OTHER ==
[~2016-10-09] VITALS: Ht 170.2 cm; Wt 124.5 kg
[~2016-10-09 22:03] MED LIST changes: -BACT800T5 PO; -HYDR50TA70 PO
[2016-10-09] MEDS ORDERED: BACT800T5 PO (23:54)
[2016-10-10] MEDS ORDERED: BACTRIM 160MG/800MG DS TAB PO ONE
[2016-10-10 00:08] VITALS: BP 142/77
[2016-12-01] MEDS ORDERED: HYDR50TA70 PO (13:36)
== END 2016-10-10 00:09 | disposition home or self-care (01) ==
LOC: M ED 22:03 → EEVIPCON 22:03 → M ED 10-10 00:09
DX: L02.212 Cutaneous abscess of back [any part, except buttock and flank] (principal); I48.91 Unspecified atrial fibrillation; F90.9 Attention-deficit hyperactivity disorder, unspecified type; M54.9 Dorsalgia, unspecified; Z87.442 Personal history of urinary calculi; F17.200 Nicotine dependence, unspecified, uncomplicated; Z79.82 Long term (current) use of aspirin; Z79.899 Other long term (current) drug therapy; Z88.8 Allergy status to other drugs, medicaments and biological substances

== ENCOUNTER 2016-12-04 06:39 | Day surgery (SDC) | payer OTHER ==
[~2016-12-04] VITALS: Ht 170.2 cm; Wt 123.0 kg
[~2016-12-04 06:39] MED LIST changes: +BACT800T5 PO; +HYDR50TA70 PO
[2016-12-04] MEDS ORDERED: LR 1,000 ML IV ONE (06:45)
[2016-12-04] MEDS ORDERED: LIDOCAINE 1% MDV 20ML VIAL SC ONE (07:00)
[2016-12-04] MEDS ORDERED: dexameTHASONE 4 MG/ML 1ML VIAL (J1100) IV ONE (07:00)
[2016-12-04] MEDS ORDERED: METOPROLOL SUCC *XL* 25MG TAB (TopROL *XL*) PO ONE (07:30)
[2016-12-04] MEDS ORDERED: LIDOCAINE W/EPINEPHRINE 1% 20ML VIAL As Ordered ONE (08:52)
[2016-12-04] MEDS ORDERED: CEFUROXIME INJ 750 MG VIAL (J0697) As Ordered ONE (09:12)
[2016-12-04] MEDS ORDERED: ROCURONIUM BROMIDE 50 MG/5 ML VIAL/SYRINGE As Ordered ONE (09:25)
[2016-12-04] MEDS ORDERED: PROPOFOL 200 MG/20 ML VIAL As Ordered ONE ×2 (09:25→12:59)
[2016-12-04] MEDS ORDERED: fentaNYL 250 MCG/5 ML INJECTION (J3010) As Ordered ONE (09:25)
[2016-12-04] MEDS ORDERED: ONDANSETRON 4MG/2ML VIAL (J2405) As Ordered ONE (09:25)
[2016-12-04] MEDS ORDERED: dexameTHASONE 4 MG/ML 1ML VIAL (J1100) As Ordered ONE (09:25)
[2016-12-04] MEDS ORDERED: LIDOCAINE 2% INJ 100 MG/5 ML SDV (FOR ANES.) As Ordered ONE (09:25)
[2016-12-04] MEDS ORDERED: ePHEDrine SULFATE 25 MG/5 ML(5MG/ML) SYRINGE As Ordered ONE (10:19)
[2016-12-04] MEDS ORDERED: NEOSTIGMINE 10 MG/10 ML VIAL (J2710) As Ordered ONE (10:19)
[2016-12-04] MEDS ORDERED: GLYCOPYRROLATE INJ 0.2 MG/ML 2 ML VIAL As Ordered ONE (10:19)
[2016-12-04] MEDS ORDERED: PHENYLephrine HCL 500 MCG/5 ML (100MCG/ML) SYRINGE (J2370) As Ordered ONE (10:19)
[2016-12-04] MEDS ORDERED: MIDAZOLAM INJ 2 MG/2 ML VIAL (J2250) As Ordered ONE (10:26)
[2016-12-04] MEDS ORDERED: BACITRACIN OINT 30GM As Ordered ONE (12:13)
[2016-12-04] MEDS ORDERED: NORCO, ANEXSIA 5/325MG TABLET (HYDROcodone/ACETAMINOPHEN) PO PRN (13:30)
[2016-12-04] MEDS ORDERED: METOCLOPRAMIDE INJ 10MG/2ML VIAL (J2765) IV PRN (13:30)
[2016-12-04] MEDS ORDERED: fentaNYL 100 MCG/2 ML INJECTION (J3010) IV PRN (13:30)
[2016-12-04] MEDS ORDERED: MEPERIDINE INJ 25 MG/ML VIAL (J2175) IV PRN (13:30)
[2016-12-04] MEDS ORDERED: ONDANSETRON 4MG/2ML VIAL (J2405) IV PRN ×2 (13:30)
[2016-12-04] MEDS ORDERED: LR 1,000 ML IV SCH (13:30)
[2016-12-04] MEDS: PERCOCET 5MG/325MG TAB PO PRN ×2 (13:42→14:08)
[2016-12-04 15:30] VITALS: BP 118/65
[2016-12-04 16:00] VITALS: BP 114/67
[2016-12-04] MEDS ORDERED: DIGO0.25 PO (16:21)
[2016-12-04 17:00] VITALS: BP 121/70
[2016-12-04] MEDS: MORPHINE 4 MG/ML 1ML SYRINGE IV PRN ×2 (17:59→22:32)
[2016-12-04] MEDS: clonazePAM 1 MG TAB PO SCH ×2 (17:59→21:37)
[2016-12-04 18:00] VITALS: BP 116/68
[2016-12-04] MEDS: LR 1,000 ML IV SCH (18:04)
[2016-12-04] MEDS: CEFUROXIME SODIUM IV SCH (20:09)
[2016-12-04] MEDS: D5W IV SCH (20:09)
[2016-12-04] MEDS ORDERED: hydrOXYzine 50 MG TAB PO SCH (21:00)
[2016-12-04 22:00] VITALS: BP 105/60
[2016-12-05] MEDS: LR 1,000 ML IV SCH ×3 (01:33→13:48)
[2016-12-05] MEDS: D5W IV SCH ×2 (01:33→10:05)
[2016-12-05] MEDS: CEFUROXIME SODIUM IV SCH ×2 (01:33→10:05)
[2016-12-05 02:00] VITALS: BP 124/60
[2016-12-05] MEDS: MORPHINE 4 MG/ML 1ML SYRINGE IV PRN ×2 (02:52→10:06)
[2016-12-05 06:00] VITALS: BP 125/70
[2016-12-05] MEDS ORDERED: DIGOXIN 0.25 MG TAB PO SCH (09:00)
[2016-12-05] MEDS ORDERED: PARoxetine 10MG TABLET PO SCH (09:00)
[2016-12-05] MEDS ORDERED: METOPROLOL TART 50 MG TAB PO SCH (09:00)
[2016-12-05] MEDS ORDERED: METOPROLOL SUCC (TopROL XL) 50MG **XL** TAB PO SCH (09:00)
[2016-12-05 10:00] VITALS: BP 131/81
[2016-12-05 10:05] VITALS: BP 131/81
[2016-12-05] MEDS: clonazePAM 1 MG TAB PO SCH ×2 (10:19→16:35)
[2016-12-05] MEDS ORDERED: IBUPROFEN 100 MG/5 ML SUSP UDC DYE FREE PO PRN (12:30)
[2016-12-05] MEDS ORDERED: MAGIC MOUTHWASH SUSPENSION BTL SS PRN (12:30)
[2016-12-05 14:00] VITALS: BP 106/60
[2016-12-05 18:00] VITALS: BP 120/70
--- NOTE | 2017-01-01 13:07 | RO ---
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 PROCEDURE: Left neck dissection and excision of the left retropharyngeal cystic mass. SURGEON: Dr. Germán Navarro TRACK GRINDER OPERATOR: Dr. Duong Johnson ANESTHESIA: General. CLINICAL PREAMBLE: This 35-year-old man presented to the office complaining of dysphagia. Physical examination revealed fullness of the retropharynx. Imaging study revealed evidence of a cystic mass in the retropharyngeal space off to the left paramedian position. Management options including surgery listed above have been discussed. The patient understood and consented to the procedure. DESCRIPTION OF PROCEDURE: Patient was identified preoperative holding, had the left neck marked. He was brought to the operating room in stable condition. In supine position on the operating table, patient received general anesthesia followed by orotracheal intubation without incident. Patient was prepped and draped in usual fashion for the procedure. The Bougie was successfully introduced into the esophagus without incident. Patient was then prepped and draped in the usual fashion for the procedure. The curvilinear incision was outlined over the left upper neck region. The skin was infiltrated with 1% lidocaine with 1:100,000 epinephrine. Incision was made through the skin and platysma. Subplatysmal flap was developed to expose the underlying sternocleidomastoid muscle and up to the level of the body of mandible and down to the level of the thyroid cartilage. Anterior border of the sternocleidomastoid muscle was dissected and retracted posteriorly. In addition , dissection was carried down to identify the internal jugular vein and other carotid sheath contents. The left superior thyroid artery was identified and ligated to afford safe access to the retropharyngeal space area. The esophagus was identified and carefully preserved. The cystic mass was palpated, which was found to be anterior to the body of the vertebrae. Dissection was carried down to completely excise the cystic mass en bloc. The mucosa of the posterior phayrngeal wall was preserved. Hemostasis was achieved using bipolar electrocautery. A 7 flat Lester-Valenzuela ( BRICE) drain was placed. The skin incision was then closed in two layers. At the end of the procedure, sponge and instruments counts were correct. No complication was encountered. Estimated blood loss was less than 50 mL. General anesthesia was reversed, and patient was extubated along with the removal of the Bougie esophageal dilator at the end of the case without complication. Patient was then transferred to the recovery area in stable condition. Examination in postoperative area revealed intact mucosa on the posterior pharyngeal wall from the intraoral examination. MTDD
== END 2016-12-05 19:35 | disposition home or self-care (01) ==
LOC: M SDC 06:39 → M MSPAV 16:00 → M SDC 12-05 19:35
PROVIDERS: ATTEND Otolaryngology
DX: R22.1 Localized swelling, mass and lump, neck (principal); I48.91 Unspecified atrial fibrillation; M54.5 Low back pain; F43.10 Post-traumatic stress disorder, unspecified; F17.210 Nicotine dependence, cigarettes, uncomplicated; Z79.899 Other long term (current) drug therapy; F31.9 Bipolar disorder, unspecified

== ENCOUNTER 2017-02-02 10:29 | Outpatient (RCR) | payer OTHER | END 2017-02-15 | LOC: M ST 10:29 | DX: Z51.89 Encounter for other specified aftercare (principal) | CPT/HCPCS: 92610 ==

== ENCOUNTER 2017-02-20 12:59 | Outpatient (RCR) | payer OTHER | END 2017-03-18 | LOC: M ST 12:59 | DX: Z51.89 Encounter for other specified aftercare (principal); R13.10 Dysphagia, unspecified | CPT/HCPCS: 92507 ==

== ENCOUNTER → 2017-03-16 | Outpatient (CLI) | payer OTHER | LOC: M PAIN 14:30 | DX: M51.26 Other intervertebral disc displacement, lumbar region (principal); M79.1 Myalgia; M46.96 Unspecified inflammatory spondylopathy, lumbar region; F32.9 Major depressive disorder, single episode, unspecified; F41.9 Anxiety disorder, unspecified; F17.210 Nicotine dependence, cigarettes, uncomplicated; Z79.82 Long term (current) use of aspirin; Z79.891 Long term (current) use of opiate analgesic; Z79.899 Other long term (current) drug therapy | CPT/HCPCS: G0463 ==

== ENCOUNTER 2017-04-14 13:37 | Outpatient (RCR) | payer OTHER | END 2017-04-15 | LOC: M ST 13:37 | DX: Z51.89 Encounter for other specified aftercare (principal); R47.02 Dysphasia ==

== ENCOUNTER 2017-04-17 13:28 | Outpatient (RCR) | payer OTHER | END 2017-05-16 | LOC: M ST 13:28 | DX: Z51.89 Encounter for other specified aftercare (principal); R13.10 Dysphagia, unspecified ==

== ENCOUNTER → 2017-04-29 | Outpatient (CLI) | payer OTHER | LOC: M PAIN 13:30 | DX: M51.26 Other intervertebral disc displacement, lumbar region (principal); M79.1 Myalgia; M46.96 Unspecified inflammatory spondylopathy, lumbar region; Z79.891 Long term (current) use of opiate analgesic; Z79.899 Other long term (current) drug therapy; Z87.19 Personal history of other diseases of the digestive system | CPT/HCPCS: G0463 ==

== ENCOUNTER 2017-11-14 19:03 | Emergency (ER) | payer OTHER ==
[2017-11-14 20:20] LABS: HEMATOCRIT 44.5 % (42.0-52.0); HEMOGLOBIN 15.4 g/dl (13.5-17.5); MEAN CORPUSCULAR HEMOGLOBIN 30.6 pg (27.0-33.0); MEAN CORPUSCULAR HGB CONC 34.6 g/dl (32.0-36.5); MEAN CORPUSCULAR VOLUME 88.3 fl (80.0-96.0); PLATELET COUNT, AUTOMATED 196 10^3/uL (150-450); RED BLOOD COUNT 5.04 10^6/uL (4.30-6.10); RED CELL DISTRIBUTION WIDTH 12.3 % (11.5-14.5); WHITE BLOOD COUNT 9.4 10^3/uL (4.0-10.0)
[2017-11-14 20:45] LABS: AMPHETAMINES LEVEL URINE NEGATIVE (NEGATIVE); BARBITURATES URINE NEGATIVE (NEGATIVE); BENZODIAZEPINES URINE NEGATIVE (NEGATIVE); CANNABINOIDS URINE NEGATIVE (NEGATIVE); COCAINE METABOLITE URINE NEGATIVE (NEGATIVE); METHADONE URINE NEGATIVE (NEGATIVE); OPIATES URINE NEGATIVE (NEGATIVE); PHENCYCLIDINE URINE NEGATIVE (NEGATIVE)
[2017-11-14 20:59] LABS: ACETAMINOPHEN LEVEL < 2.0 UG/ML (10.0-30.0); ALBUMIN 4.2 GM/DL (3.2-5.2); ALBUMIN/GLOBULIN RATIO 1.31 (1.00-1.93); ALKALINE PHOSPHATASE 51 U/L (45-117); ALT/SGPT 19 U/L (12-78); ANION GAP 10 MEQ/L (8-16); AST/SGOT 10 U/L (7-37); BILIRUBIN,DIRECT 0.1 MG/DL (0.0-0.2); BILIRUBIN,TOTAL 0.3 MG/DL (0.2-1.0); BLOOD UREA NITROGEN 14 MG/DL (7-18); CALCIUM LEVEL 8.9 MG/DL (8.5-10.1); CARBON DIOXIDE LEVEL 21 MEQ/L (21-32); CHLORIDE LEVEL 113 MEQ/L (98-107); CREATININE FOR GFR 0.87 MG/DL (0.70-1.30); ETHYL ALCOHOL (ETHANOL) < 0.003 % (0.000-0.010); GLOMERULAR FILTRATION RATE > 60.0 (>60); GLUCOSE, FASTING 98 MG/DL (70-100); SALICYLATE LEVEL 2.8 MG/DL (5.0-30.0); SODIUM LEVEL 144 MEQ/L (136-145); THYROID STIMULATING HORMONE 0.261 uIU/ML (0.358-3.740); TOTAL PROTEIN 7.4 GM/DL (6.4-8.2)
== END 2017-11-15 06:41 | disposition home or self-care (01) ==
LOC: M ED 11-15 06:41
DX: F32.9 Major depressive disorder, single episode, unspecified (principal); I10 Essential (primary) hypertension; Z72.0 Tobacco use; Z79.82 Long term (current) use of aspirin; Z79.899 Other long term (current) drug therapy
CPT/HCPCS: 80320

== ENCOUNTER 2017-11-15 19:20 | Inpatient (IN) | payer MEDICAID, OTHER ==
[2017-11-15 20:02] LABS: HEMATOCRIT 44.3 % (42.0-52.0); HEMOGLOBIN 15.3 g/dl (13.5-17.5); MEAN CORPUSCULAR HEMOGLOBIN 30.7 pg (27.0-33.0); MEAN CORPUSCULAR HGB CONC 34.5 g/dl (32.0-36.5); MEAN CORPUSCULAR VOLUME 88.8 fl (80.0-96.0); PLATELET COUNT, AUTOMATED 196 10^3/uL (150-450); RED BLOOD COUNT 4.99 10^6/uL (4.30-6.10); RED CELL DISTRIBUTION WIDTH 12.2 % (11.5-14.5); WHITE BLOOD COUNT 9.1 10^3/uL (4.0-10.0)
[2017-11-15 20:35] LABS: ACETAMINOPHEN LEVEL < 2.0 UG/ML (10.0-30.0); ALBUMIN/GLOBULIN RATIO 1.18 (1.00-1.93); ALKALINE PHOSPHATASE 49 U/L (45-117); ALT/SGPT 21 U/L (12-78); ANION GAP 5 MEQ/L (8-16); AST/SGOT 13 U/L (7-37); BILIRUBIN,DIRECT < 0.1 MG/DL (0.0-0.2); BILIRUBIN,TOTAL 0.3 MG/DL (0.2-1.0); BLOOD UREA NITROGEN 9 MG/DL (7-18); CALCIUM LEVEL 8.6 MG/DL (8.5-10.1); CARBON DIOXIDE LEVEL 28 MEQ/L (21-32); CHLORIDE LEVEL 112 MEQ/L (98-107); CREATININE FOR GFR 0.98 MG/DL (0.70-1.30); ETHYL ALCOHOL (ETHANOL) < 0.003 % (0.000-0.010); GLOMERULAR FILTRATION RATE > 60.0 (>60); GLUCOSE, FASTING 101 MG/DL (70-100); SALICYLATE LEVEL 2.3 MG/DL (5.0-30.0); SODIUM LEVEL 145 MEQ/L (136-145); TOTAL PROTEIN 7.4 GM/DL (6.4-8.2)
[2017-11-15 21:30] LABS: AMPHETAMINES LEVEL URINE NEGATIVE (NEGATIVE); BARBITURATES URINE NEGATIVE (NEGATIVE); BENZODIAZEPINES URINE NEGATIVE (NEGATIVE); CANNABINOIDS URINE NEGATIVE (NEGATIVE); COCAINE METABOLITE URINE NEGATIVE (NEGATIVE); METHADONE URINE NEGATIVE (NEGATIVE); OPIATES URINE NEGATIVE (NEGATIVE); PHENCYCLIDINE URINE NEGATIVE (NEGATIVE)
[2017-11-16] MEDS ORDERED: MOM 30ML SUSPENSION UDC PO (12:15)
[2017-11-16] MEDS ORDERED: MAALOX 30 ML SUSP *UDC PO (12:15)
[2017-11-16] MEDS: traZODone 50 MG TAB PO (21:01)
[2017-11-17] MEDS: ASPIRIN 81 MG ENTERIC TAB PO (12:26)
[2017-11-17] MEDS: VENLAFAXINE **XR** 75MG CAPSULE PO (12:26)
[2017-11-17] MEDS: traZODone 50 MG TAB PO (21:04)
[2017-11-17] MEDS: IBUPROFEN 400 MG TAB PO (21:04)
[2017-11-18] MEDS: ACETAMINOPHEN TAB 650MG DOSE (2X325MG) PO (01:32)
[2017-11-18] MEDS: hydrOXYzine 50 MG TAB PO ×2 (01:32→21:08)
[2017-11-18 07:58] LABS: ESTIMATED AVERAGE GLUCOSE 114 MG/DL (60-110); HEMOGLOBIN A1c 5.6 %
[2017-11-18] MEDS: ASPIRIN 81 MG ENTERIC TAB PO (08:02)
[2017-11-18] MEDS: VENLAFAXINE **XR** 75MG CAPSULE PO (08:03)
[2017-11-18 08:04] LABS: FREE THYROXINE INDEX 2.9 % (1.4-3.8); T UPTAKE 32 % (33-40); THYROID STIMULATING HORMONE 0.528 uIU/ML (0.358-3.740); THYROXINE (T4) 9.1 UG/DL (4.5-12.0)
[2017-11-18] MEDS: IBUPROFEN 400 MG TAB PO (14:45)
[2017-11-18] MEDS: traZODone 100 MG TAB PO (21:08)
[2017-11-19] MEDS: ASPIRIN 81 MG ENTERIC TAB PO (08:24)
[2017-11-19] MEDS: VENLAFAXINE **XR** 75MG CAPSULE PO (08:24)
[2017-11-19] MEDS: IBUPROFEN 400 MG TAB PO (14:38)
[2017-11-19] MEDS: traZODone 100 MG TAB PO (21:20)
[2017-11-19] MEDS: hydrOXYzine 50 MG TAB PO (21:20)
[2017-11-20] MEDS: ASPIRIN 81 MG ENTERIC TAB PO (08:21)
[2017-11-20] MEDS: VENLAFAXINE **XR** 75MG CAPSULE PO (08:21)
[2017-11-20] MEDS: PROPRANOLOL 10 MG TAB PO ×3 (12:03→21:06)
[2017-11-20] MEDS: traZODone 100 MG TAB PO (21:06)
[2017-11-21] MEDS: VENLAFAXINE **XR** 75MG CAPSULE PO (08:19)
[2017-11-21] MEDS: PROPRANOLOL 10 MG TAB PO ×3 (08:20→21:02)
[2017-11-21] MEDS: ASPIRIN 81 MG ENTERIC TAB PO (08:20)
[2017-11-21] MEDS: ACETAMINOPHEN TAB 650MG DOSE (2X325MG) PO (15:40)
[2017-11-21] MEDS: hydrOXYzine 50 MG TAB PO (23:13)
[2017-11-21] MEDS: traZODone 100 MG TAB PO (23:13)
[2017-11-22] MEDS: ASPIRIN 81 MG ENTERIC TAB PO (08:26)
[2017-11-22] MEDS: VENLAFAXINE **XR** 75MG CAPSULE PO (08:26)
[2017-11-22] MEDS: PROPRANOLOL 10 MG TAB PO ×3 (08:28→20:36)
[2017-11-22] MEDS: hydrOXYzine 50 MG TAB PO (20:33)
[2017-11-22] MEDS: traZODone 100 MG TAB PO (21:44)
[2017-11-23] MEDS: VENLAFAXINE **XR** 75MG CAPSULE PO (08:35)
[2017-11-23] MEDS: ASPIRIN 81 MG ENTERIC TAB PO (08:36)
[2017-11-23] MEDS: PROPRANOLOL 10 MG TAB PO (08:36)
== END 2017-11-23 12:15 | disposition home or self-care (01) | DRG 754 ==
LOC: M PSY 11-18 16:09 → M ED INP 11-16 12:15 → M ED 19:20 → M PSY 11-16 14:00
DX: F32.9 Major depressive disorder, single episode, unspecified (principal); I10 Essential (primary) hypertension; R45.851 Suicidal ideations; F41.9 Anxiety disorder, unspecified; M54.5 Low back pain; E66.9 Obesity, unspecified; F90.9 Attention-deficit hyperactivity disorder, unspecified type; Z68.36 Body mass index [BMI] 36.0-36.9, adult; F60.3 Borderline personality disorder; F17.200 Nicotine dependence, unspecified, uncomplicated; Z79.82 Long term (current) use of aspirin; Z79.899 Other long term (current) drug therapy

== ENCOUNTER 2018-06-12 21:52 | Emergency (ER) | payer OTHER ==
[~2018-06-12] VITALS: Ht 175.3 cm; Wt 100.0 kg
[~2018-06-12 21:52] MED LIST changes: +ASPI81TA85 PO; -CLON1TAB PO; +CLON1TAB8 PO; +EFFE150C2 PO; +HYDRO50TAB PO; +LATU1TAB PO; +PRIS100T PO; +PROP10TA55 PO; +TRAZ10TA PO
[2018-06-12] MEDS ORDERED: ATEN25TA PO (22:00)
[2018-06-12] MEDS ORDERED: DIGO0.25 PO (22:00)
[2018-06-12] MEDS ORDERED: DESV50TA3 PO (22:00)
[2018-06-12] MEDS ORDERED: ELIQ5TAB PO (22:00)
[2018-06-12] MEDS ORDERED: ARIP1TAB6 PO (22:00)
[2018-06-13] MEDS ORDERED: CLIN150C14 PO (00:22)
[2018-06-13] MEDS ORDERED: CLINDAMYCIN 150 MG CAP PO ONE (00:30)
[2018-06-13] MEDS ORDERED: OXYCODONE/APAP 5MG/325MG(BULK FOR ED) 1 TABLET PO ONE (00:30)
[2018-06-13 00:45] VITALS: BP 111/56
== END 2018-06-13 00:49 | disposition home or self-care (01) ==
LOC: M ED 21:52
DX: L03.116 Cellulitis of left lower limb (principal); J45.909 Unspecified asthma, uncomplicated; I48.91 Unspecified atrial fibrillation; F63.81 Intermittent explosive disorder; F90.9 Attention-deficit hyperactivity disorder, unspecified type; G47.33 Obstructive sleep apnea (adult) (pediatric); F17.210 Nicotine dependence, cigarettes, uncomplicated

== ENCOUNTER 2018-06-15 16:41 | Inpatient (IN) | payer OTHER ==
[~2018-06-15] VITALS: Ht 172.7 cm; Wt 104.3 kg
[~2018-06-15 16:41] MED LIST changes: +ARIP1TAB6 PO; +ATEN25TA PO; +CLIN150C14 PO; +DESV50TA3 PO; +ELIQ5TAB PO
[2018-06-15] MEDS ORDERED: cefTRIAXone SOD 1 GM in D5W MINI-BAG PLUS 50 ML IV ONE (17:30)
[2018-06-15] MEDS ORDERED: NS 1,000 ML IV ONE (17:30)
--- NOTE | 2018-06-15 18:16 | REP ---
Left lower extremity Duplex Doppler venous ultrasound: Real time compression and duplex Doppler interrogation of the left lower extremity deep venous system is performed. The left common femoral, superficial femoral and popliteal veins are fully compressible with transducer pressure and demonstrate normal spontaneous and phasic flow, without evidence of deep venous thrombosis. Impression: No evidence of deep venous thrombosis of the left lower extremity femoral popliteal venous system. A heterogeneous area in the left lower leg anteriorly measures 2.7 x 0.8 x 1.7 cm, likely representing phlegmonous changes or edema. Electronically Signed by Dony Gee MD 06/15/2018 06:07 P
[2018-06-15 18:22] LABS: BASO # 0.1 10^3/uL (0.0-0.2); BASO % 0.7 % (0.0-1.0); EOS # 0.2 10^3/uL (0.0-0.50); EOS % 2.5 % (0.0-3.0); HEMATOCRIT 40.9 % (42.0-52.0); LYMPH # 1.9 10^3/uL (1.5-4.5); MEAN CORPUSCULAR HEMOGLOBIN 30.9 pg (27.0-33.0); MEAN CORPUSCULAR HGB CONC 34.2 g/dl (32.0-36.5); MEAN CORPUSCULAR VOLUME 90.3 fl (80.0-96.0); MONO # 0.6 10^3/uL (0.0-0.8); MONO % 7.5 % (0.0-5.0); NEUTROPHILS # 5.7 10^3/uL (1.8-7.7); NEUTROPHILS % 66.6 % (36.0-66.0); PLATELET COUNT, AUTOMATED 206 10^3/uL (150-450); RED BLOOD COUNT 4.53 10^6/uL (4.30-6.10); WHITE BLOOD COUNT 8.6 10^3/uL (4.0-10.0)
[2018-06-15 18:40] LABS: BLOOD UREA NITROGEN 11 MG/DL (7-18); C REACTIVE PROTEIN QUANTITATIV 3.14 MG/DL (0.00-0.30); CALCIUM LEVEL 8.8 MG/DL (8.5-10.1); CARBON DIOXIDE LEVEL 27 MEQ/L (21-32); CHLORIDE LEVEL 109 MEQ/L (98-107); CREATININE FOR GFR 0.87 MG/DL (0.70-1.30); GLOMERULAR FILTRATION RATE > 60.0 (>60); GLUCOSE, FASTING 94 MG/DL (70-100); POTASSIUM SERUM 3.8 MEQ/L (3.5-5.1); SODIUM LEVEL 140 MEQ/L (136-145)
[2018-06-15 19:07] LABS: ERYTHROCYTE SEDIMENTATION RATE 27 mm/hr (0-15)
[2018-06-15] MEDS ORDERED: VANCOMYCIN HCL 1,000 MG, VIAL MATE ADAPTER 1 EACH in D5W 250 ML IV ONE ×2 (19:45→21:00)
[2018-06-15] MEDS ORDERED: CLIN150C14 PO (20:00)
[2018-06-15] MEDS ORDERED: ACETAMINOPHEN TAB 650MG DOSE (2X325MG) PO PRN (20:00)
[2018-06-15] MEDS ORDERED: TRAZ1TAB14 PO (20:00)
--- NOTE | 2018-06-15 20:10 | PHACANCOPD ---
PHARMACY VANCOMYCIN DOSING Pt Demographics Demographics Patient Age:37 , Weight:104.300 , Gender: male Adjusted Body Weight Date: 06/15/18, Adjusted Body Weight: [82.76] Kg Events Past 24 Hours Events Past 24 Hours: NO: Dialysis, Diuretic Therapy, Change in CrCl, Fever, Elevation in WBC, Pending Diagnostics, Pending Procedures, Other Vancomycin Vancomycin indication: CELLULITIS WITH H/O MRSA Vancomycin Target Ranges: 15-20 mcg/ml Vancomycin Load Y/N: Yes Load Dose Date Time Vancomycin Load Dose: 2G Date: 06/15/18 Time: 20:00 Vancomycin Dose Date: 06/15/18. Current Vancomycin Dose: [1G iv Q8H] Intermittent Dosing?: No Labs Labs Item Value Date Time Creatinine 0.87 MG/DL 06/15/18 1806 C-Reactive Protein, Quantitative 3.14 MG/DL H 06/15/18 1806 Micro Microbiology 06/15/18 Blood Culture, Received Pending Creatinine Clearance Date:06/15/18. Creatinine Clearance: [113ML/MIN]. Pending Labs VANCOMYCIN TROUGH 06/16 Assessment and Plan Maintaining Current Dose?: Yes Reason for dose change: No Dose Change Pharmacist Note Pharmacist Note Date: 06/15/18. Pharmacist note: PT is a 37 year old male being treated for cellulitis with a history of MRSA goal trough 15-20mcg/ml. The patient has not been treated with vancomycin here at [facility] in the past. To achieve goal a 2g vancomycin Loading dose was started 06/15 @20:00. Maintenance therapy will consist of 1g vancomycin IV every 8 hours starting 06/16 @04:00. A trough is scheduled 06/16/18 @ 19:00. We will continue to monitor and adjust the dose as needed. RONNIE JONES PHARMACY Jun 15, 2018 20:10
--- NOTE | 2018-06-15 20:13 | HPEPDOC ---
General Date of Admission Chief Complaint The patient is a 37-year-old male admitted with a reason for visit of Leg Swelling. Source: Patient History of Present Illness 37 y/o M c/o worsening redness, swelling and pain over anterior aspect of left leg for past few days. Pt was seen in ER 3 days and was discharged home on PO clindamycin. Pt took clindamycin as prescribed for 2 days without much relief. In ER pt was found with vitals of BP 130/71, HR 85, RR 16, Temp 99.2, SpO2-98% on RA; Vancomycin was ordered by ER provider in view of h/o MRSA infection. Hospitalist service was consulted to admit the pt for further management. Pt was seen and examined at bedside in ER. Pt c/o left leg swelling, redness and pain. Home Medications Scheduled Apixaban (Eliquis) 5 Mg Tablet, 5 MG PO BID, (Reported) Aripiprazole (Aripiprazole) 5 Mg Tablet, 5 MG PO QHS, (Reported) Aspirin (Aspir 81) 81 Mg Tab, 81 MG PO DAILY, (Reported) Atenolol (Atenolol) 25 Mg Tablet, 25 MG PO DAILY, (Reported) Clindamycin Hcl (Clindamycin HCl) 150 Mg Capsule, 150 MG PO QID, (Reported) STARTED 06/13 FOR 10 DAYS Desvenlafaxine Succinate (Desvenlafaxine Succinate ER) 50 Mg Tab.er.24h, 50 MG PO DAILY, (Reported) Digoxin (Digoxin) 250 Mcg Tablet, 250 MCG PO DAILY, (Reported) Trazodone HCl (Trazodone HCl) 150 Mg Tablet, 150 MG PO QHS, (Reported) Allergies Coded Allergies: No Known Allergies (Unverified , 11/15/17) Past Medical History Medical History h/o AFib s/p ablation on PO eliquis, depression, anxiety Surgical History s/p ablation for Afib, cholecystectomy, tonsillectomy Family History reviewed non contributory Social History * Smoker: current smoker Alcohol: occationally Drugs: denies lives with adopted mother, h/o marijuana abuse A-FIB/CHADSVASC A-FIB History Current/History of A-Fib/PAF?: Yes Current Oral Anticoagulant The: Yes Review of Systems Other systems 10 points review of system was performed and it was negative except as per HPI Physical Examination General Exam: Positive: Alert, Cooperative, No Acute Distress Eye Exam: Positive: PERRLA ENT Exam: Positive: Mucous membr. moist/pink Neck Exam: Positive: Supple Chest Exam: Positive: Clear to auscultation, Normal air movement Heart Exam: Positive: Rate Normal, Regular Rhythm, Normal S1, Normal S2 Abdomen Exam: Positive: Normal bowel sounds, Soft Extremity Exam: Positive: Normal pulses Neuro Exam: Positive: Normal Speech, Strength at 5/5 X4 ext, Cranial Nerves 3- 12 NL Psych Exam: Positive: Mental status NL, Oriented x 3 Other physical findings diffuse redness, swelling, tenderness, warmth, underlying skin induration, with a small area of skin denudation over anterior aspect of left leg. Vital Signs Vital Signs Date Time Temp Pulse Resp B/P (MAP) Pulse Ox O2 Delivery O2 Flow Rate FiO2 06/15/18 19:52 98.7 74 18 131/71 (91) 99 Room Air Laboratory Data Labs 24H Laboratory Tests 2 06/15/18 18:06: Immature Granulocyte % (Auto) 0.7, White Blood Count 8.6, Red Blood Count 4.53, Hemoglobin 14.0, Hematocrit 40.9L, Mean Corpuscular Volume 90.3, Mean Corpuscular Hemoglobin 30.9, Mean Corpuscular Hemoglobin Concent 34.2, Red Cell Distribution Width 12.0, Platelet Count 206, Neutrophils (%) (Auto) 66.6H, Lymphocytes (%) (Auto) 22.0L, Monocytes (%) (Auto) 7.5H, Eosinophils (%) (Auto) 2.5, Basophils (%) (Auto) 0.7, Neutrophils # (Auto) 5.7, Lymphocytes # (Auto) 1.9, Monocytes # (Auto) 0.6, Eosinophils # (Auto) 0.2, Basophils # (Auto) 0.1, Nucleated Red Blood Cells % (auto) 0.0, Erythrocyte Sedimentation Rate 27H, Anion Gap 4L, Glomerular Filtration Rate > 60.0, Blood Urea Nitrogen 11, Creatinine 0.87, Sodium Level 140, Potassium Level 3.8, Chloride Level 109H, Carbon Dioxide Level 27, Calcium Level 8.8, C-Reactive Protein, Quantitative 3.14H CBC/BMP Laboratory Tests 06/15/18 18:06 Red Blood Count 4.53, Mean Corpuscular Volume 90.3, Mean Corpuscular Hemoglobin 30.9, Mean Corpuscular Hemoglobin Concent 34.2, Red Cell Distribution Width 12.0 , Neutrophils (%) (Auto) 66.6 H, Lymphocytes (%) (Auto) 22.0 L, Monocytes (%) (Auto) 7.5 H, Eosinophils (%) (Auto) 2.5, Basophils (%) (Auto) 0.7, Neutrophils # (Auto) 5.7, Lymphocytes # (Auto) 1.9, Monocytes # (Auto) 0.6, Eosinophils # (Auto) 0.2, Basophils # (Auto) 0.1, Calcium Level 8.8 Microbiology Microbiology 06/15/18 Blood Culture, Received Pending Assessment/Plan 37 y/o M c/o pain, swelling, redness over anterior aspect of left leg, pt failed outpatient PO antibiotics. Labs and imaging studies reviewed. US left lower extremities ruled out DVT but showed phlegmonous changes 2.7 x0.8x1.7 or edema Problems (1) Cellulitis of left leg Status: Acute Problem Text: iv vancomycin will consider surgery consultation depending on clinical course over next 24 hours (2) Depression Status: Chronic Response to Treatment: Stable Problem Text: home meds (3) Atrial fibrillation Status: Resolved Problem Text: currently in sinus rhythm will continue home meds including eliquis (4) Obesity Status: Chronic Problem Text: supportive care Plan / VTE VTE Prophylaxis Ordered?: Yes YANIQUE TOURE MD Jun 15, 2018 19:57
[2018-06-15 23:15] VITALS: BP 131/73
[2018-06-15] MEDS ORDERED: PILL CRUSHER/CUTTER 1 EACH XX PRN (23:15)
[2018-06-15] MEDS: ARIPiprazole 10 MG TAB PO SCH (23:30)
[2018-06-15] MEDS: APIXABAN 5 MG TAB (ELIQUIS) PO SCH (23:30)
[2018-06-15] MEDS: traZODone 50 MG TAB PO SCH (23:30)
[2018-06-16] MEDS: VANCOMYCIN HCL 1,000 MG, VIAL MATE ADAPTER 1 EACH in D5W 250 ML IV SCH ×3 (04:11→20:36)
[2018-06-16 06:00] VITALS: BP 115/67
[2018-06-16 08:13] LABS: HEMATOCRIT 37.6 % (42.0-52.0); HEMOGLOBIN 12.7 g/dl (13.5-17.5); MEAN CORPUSCULAR HEMOGLOBIN 30.5 pg (27.0-33.0); MEAN CORPUSCULAR HGB CONC 33.8 g/dl (32.0-36.5); MEAN CORPUSCULAR VOLUME 90.2 fl (80.0-96.0); PLATELET COUNT, AUTOMATED 194 10^3/uL (150-450); RED BLOOD COUNT 4.17 10^6/uL (4.30-6.10)
[2018-06-16 08:22] LABS: INR 1.02; PROTHROMBIN TIME 13.5 SECONDS (12.1-14.4)
[2018-06-16] MEDS: ASPIRIN 81 MG ENTERIC TAB PO SCH (08:35)
[2018-06-16] MEDS: APIXABAN 5 MG TAB (ELIQUIS) PO SCH ×2 (08:35→20:37)
[2018-06-16] MEDS: ATENOLOL 25 MG TAB PO SCH (08:35)
[2018-06-16] MEDS: DIGOXIN 0.25 MG TAB PO SCH (08:35)
[2018-06-16] MEDS: DESVENLAFAXINE ER 50 MG TABLET (PRISTIQ) PO SCH (08:35)
[2018-06-16 08:44] LABS: BLOOD UREA NITROGEN 8 MG/DL (7-18); CALCIUM LEVEL 8.2 MG/DL (8.5-10.1); CARBON DIOXIDE LEVEL 26 MEQ/L (21-32); CHLORIDE LEVEL 110 MEQ/L (98-107); CREATININE FOR GFR 0.81 MG/DL (0.70-1.30); DIGOXIN LEVEL 0.2 NG/ML (0.5-2.0); GLOMERULAR FILTRATION RATE > 60.0 (>60); GLUCOSE, FASTING 108 MG/DL (70-100); POTASSIUM SERUM 3.6 MEQ/L (3.5-5.1); SODIUM LEVEL 141 MEQ/L (136-145)
[2018-06-16] MEDS ORDERED: VANCOMYCIN HCL 1,500 MG in IV FLUID PLACE HOLDER 1 EA IV SCH (09:00)
[2018-06-16] MEDS ORDERED: ADACEL/BOOSTRIX VACCINE (DIPHTH/PERTUSS/ACELL/TETANUS)0.5ML SYR (90715) IM ONE (10:45)
--- NOTE | 2018-06-16 11:22 | IPNPDOC ---
Date Seen The patient was seen on 06/16/18. Progress Note SUBJECTIVE: Patient was seen and examined this morning. He was admitted for a left lower extremity cellulitis that he developed after falling and cutting his leg on a piece of concrete. He was previously treated with clindamycin but stated that the infection worsened. Patient currently states that his left leg is tender. He is denying any fevers, chills, nausea, or vomiting. OBJECTIVE PHYSICAL EXAMINATION: VITAL SIGNS: Please see below. GENERAL: Awake, alert, and oriented. He appears in no acute distress. He is laying in bed comfortably HEENT: Atraumatic normocephalic. Eyes are nonicteric. Trachea is midline. Ear gauges present in ear lobes bilaterally CARDIOVASCULAR: Normal S1, S2. Irregularly irregular rhythm. No clicks, rubs, or murmurs RESPIRATORY: Clear vesicular breath sounds bilaterally with good respiratory effort. No wheezes, rhonci, or rales ABDOMINAL: Obese, soft, nondistended. Nontender to palpation of all 4 quadrants. No rebound tenderness or guarding EXTREMITIES: 2cm punctuate lesion with surrounding erythema on patients left anterior alvarez. Area of draining pus. Tenderness to palpation of left. No edema bilaterally.Full and equal pulses in bilateral upper and lower extremities NEUROLOGICAL: No focal neurological deficits PSYCHOLOGICAL: Mood and affect appear appropriate LABORATORY DATA, IMAGING STUDIES, MICROBIOLOGY: Please see below. DVT prophylaxis ordered?: YES ASSESSMENT AND PLAN: Patient is a 37 year old male with a past medical history significant for atrial fibrillation, depression and anxiety who presented to the [facility] ER with complaint of left lower extremity pain, swelling, and redness. Patient was previously evaluated and treated with clindamycin for suspected Staph abcess/cellulitis. The patient returned as his leg was worsening. The patient was admitted for likely left lower extremity cellulitis/abscess and started on IV vancomycin due to history of MRSA. PROBLEMS: 1. Left lower leg cellulitis -Patient has a draining abscess/cellulitis of the left anterior alvarez. The abscess drains when expressed. -Will have warm compress 4x daily -Continue with IV vancomycin 2. Depression/Anxiety -Chronic condition. Currently stable. Will continue on home medication -Pristiq -Trazodone -Abilify 3. Atrial Fibrillation -Currently stable -Continue Digoxin, Atenolol, Eliquis 4. DVT prophylaxis -Patient chronically anticoagulated on Eliquis A-FIB/CHADSVASC A-FIB History Current/History of A-Fib/PAF?: Yes Current Oral Anticoagulant The: Yes VS, I&O, 24H, Fishbone Vital Signs/I&O Vital Signs Date Time Temp Pulse Resp B/P (MAP) Pulse Ox O2 Delivery O2 Flow Rate FiO2 06/16/18 08:35 76 06/16/18 08:35 120/66 06/16/18 06:00 97.9 16 97 06/15/18 22:51 Room Air I&O- Last 24 Hours up to 6 AM 06/16/18 06:00 Intake Total 480 ml Output Total 1125 ml Balance -645 ml Laboratory Data 24H LABS Laboratory Tests 2 06/15/18 18:06: Immature Granulocyte % (Auto) 0.7, White Blood Count 8.6, Red Blood Count 4.53, Hemoglobin 14.0, Hematocrit 40.9L, Mean Corpuscular Volume 90.3, Mean Corpuscular Hemoglobin 30.9, Mean Corpuscular Hemoglobin Concent 34.2, Red Cell Distribution Width 12.0, Platelet Count 206, Neutrophils (%) (Auto) 66.6H, Lymphocytes (%) (Auto) 22.0L, Monocytes (%) (Auto) 7.5H, Eosinophils (%) (Auto) 2.5, Basophils (%) (Auto) 0.7, Neutrophils # (Auto) 5.7, Lymphocytes # (Auto) 1.9, Monocytes # (Auto) 0.6, Eosinophils # (Auto) 0.2, Basophils # (Auto) 0.1, Nucleated Red Blood Cells % (auto) 0.0, Erythrocyte Sedimentation Rate 27H, Anion Gap 4L, Glomerular Filtration Rate > 60.0, Blood Urea Nitrogen 11, Creatinine 0.87, Sodium Level 140, Potassium Level 3.8, Chloride Level 109H, Carbon Dioxide Level 27, Calcium Level 8.8, C-Reactive Protein, Quantitative 3.14H 06/16/18 07:26: Nucleated Red Blood Cells % (auto) 0.0, Anion Gap 5L, Glomerular Filtration Rate > 60.0, Blood Urea Nitrogen 8, Creatinine 0.81, Sodium Level 141, Potassium L evel 3.6, Chloride Level 110H, Carbon Dioxide Level 26, Calcium Level 8.2L, Prothrombin Time 13.5, Prothromb Time International Ratio 1.02, Digoxin Level 0.2L CBC/BMP Laboratory Tests 06/15/18 18:06 Red Blood Count 4.53, Mean Corpuscular Volume 90.3, Mean Corpuscular Hemoglobin 30.9, Mean Corpuscular Hemoglobin Concent 34.2, Red Cell Distribution Width 12.0, Neutrophils (%) (Auto) 66.6 H, Lymphocytes (%) (Auto) 22.0 L, Monocytes (%) (Auto) 7.5 H, Eosinophils (%) (Auto) 2.5, Basophils (%) (Auto) 0.7, Neutrophils # (Auto) 5.7, Lymphocytes # (Auto) 1.9, Monocytes # (Auto) 0.6, Eosinophils # (Auto) 0.2, Basophils # (Auto) 0.1, Calcium Level 8.8 06/16/18 07:26 Red Blood Count 4.17 L, Mean Corpuscular Volume 90.2, Mean Corpuscular Hemoglobin 30.5, Mean Corpuscular Hemoglobin Concent 33.8, Red Cell Distribution Width 12.0, Calcium Level 8.2 L Microbiology Microbiology 06/15/18 Blood Culture, Received Pending 06/15/18 Blood Culture, Received Pending GME ATTESTATION GME ATTESTATION My faculty preceptor for this patient encounter was physically present during the encounter and was fully available. All aspects of the patient interview, examination, medical decision making process, and medical care plan development were reviewed and approved by the faculty preceptor. The faculty preceptor is aware and concurs with the plan as stated in the body of this note and will attest to such by his/her cosignature. ATTENDING NOTE I saw and evaluated the patient. I agree with the findings and plan of care as documented in the resident's note PERCY CRONIN DO June 16, 2018 11:22 SOFY DONALD MD June 19, 2018 16:10
[2018-06-16 14:00] VITALS: BP 143/67
--- NOTE | 2018-06-16 20:17 | PHACANCOPD ---
PHARMACY VANCOMYCIN DOSING Pt Demographics Demographics Patient Age:37 , Weight:104.300 , Gender: male Adjusted Body Weight Date: 06/15/18, Adjusted Body Weight: [82.76] Kg Vancomycin Vancomycin indication: CELLULITIS WITH H/O MRSA Vancomycin Target Ranges: 15-20 mcg/ml Vancomycin Load Y/N: Yes Load Dose Date Time Vancomycin Load Dose: 2G Date: 06/15/18 Time: 20:00 Vancomycin Dose Date: 06/15/18. Current Vancomycin Dose: [1G iv Q8H] Intermittent Dosing?: No Labs Micro Microbiology 06/15/18 Blood Culture, Received Pending 06/15/18 Blood Culture - Preliminary, Resulted No growth after 24 hours . All specim... Creatinine Clearance Date:06/15/18. Creatinine Clearance: [113ML/MIN]. Pending Labs VANCOMYCIN TROUGH 06/16 Assessment and Plan Maintaining Current Dose?: No Reason for dose change: Trough too low Pharmacist Note Pharmacist Note 06/16/18: Day #2 empiric vancomycin therapy. Trough level today resulted at 10.6mcg/ml. Scr and BUN remain stable. We will increase the patient's current regimen from 1g IV Q8H to 1500mg IV Q8H - aiming for a goal trough of 15- 20mcg/ml. A follow-up trough level has been scheduled to be drawn tomorrow at 1900. We will continue to monitor and make further dose adjustments if needed. Date: 06/15/18. Pharmacist note: PT is a 37 year old male being treated for cellulitis with a history of MRSA goal trough 15-20mcg/ml. The patient has not been treated with vancomycin here at [facility] in the past. To achieve goal a 2g vancomycin Loading dose was started 06/15 @20:00. Maintenance therapy will consist of 1g vancomycin IV every 8 hours starting 06/16 @04:00. A trough is scheduled 06/16/18 @ 19:00. We will continue to monitor and adjust the dose as needed. SANDRA VARELA PHARMACY June 16, 2018 20:17
[2018-06-16] MEDS: ARIPiprazole 10 MG TAB PO SCH (20:37)
[2018-06-16] MEDS: traZODone 50 MG TAB PO SCH (20:37)
[2018-06-16] MEDS: VANCOMYCIN HCL 500 MG in D5W MINI-BAG PLUS 100 ML IV SCH (21:40)
[2018-06-16 22:00] VITALS: BP 124/67
[2018-06-17] MEDS: VANCOMYCIN HCL 1,000 MG, VIAL MATE ADAPTER 1 EACH in D5W 250 ML IV SCH ×2 (04:15→11:55)
[2018-06-17] MEDS: VANCOMYCIN HCL 500 MG in D5W MINI-BAG PLUS 100 ML IV SCH ×2 (05:21→11:55)
[2018-06-17 06:00] VITALS: BP 122/58
[2018-06-17] MEDS: ASPIRIN 81 MG ENTERIC TAB PO SCH (09:03)
[2018-06-17] MEDS: DESVENLAFAXINE ER 50 MG TABLET (PRISTIQ) PO SCH (09:03)
[2018-06-17 09:04] VITALS: BP 122/58
[2018-06-17] MEDS: DIGOXIN 0.25 MG TAB PO SCH (09:04)
[2018-06-17] MEDS: APIXABAN 5 MG TAB (ELIQUIS) PO SCH (09:04)
[2018-06-17] MEDS: ATENOLOL 25 MG TAB PO SCH (09:04)
[2018-06-17] MEDS ORDERED: DOXY-350 PO (10:21)
--- NOTE | 2018-06-17 11:31 | DS.PDOC ---
Discharge Summary General Date of Admission Jun 15, 2018 at 19:48 Date of Discharge 06/17/18 Attending Physician: SOFY DONALD MD Discharge Summary PROCEDURES PERFORMED DURING STAY: [None]. ADMITTING DIAGNOSES: 1. Left leg cellulitis 2. Depression 3. Atrial Fibrillation on Eliquis 4. Obesity DISCHARGE DIAGNOSES: 1. Left leg cellulitis 2. Depression 3. Atrial Fibrillation 4. Obesity COMPLICATIONS/CHIEF COMPLAINT: Cellulitis Of L Leg. HISTORY OF PRESENT ILLNESS: Patient is a 37 year old male with a past medical history significant for depression, atrial fibrillation on eliquis, and history of lower extremity cellulitis, and MRSA infections who presented to the [facility] ER for complaint of worsening redness, swelling, and pain over the anterior aspect of his left leg for the past few days. Patient had stated that he was seen in the ER three days prior for his left leg and was diagnosed with cellulitis. He was given clindamycin and discharged home. Patient stated that after 2 days on the clindamycin, his swelling, redness, and pain was worsening. This prompted him to return to the ER for further evaluation. In the ER the patient was vitally stable. He received vancomycin IV due to his history of previous MRSA infections. He did receive a vascular ultrasound which was negative for a DVT but illustrated a heterogeneous area in the left lower leg anteriorly measuring 2.7 x 0.8 x 1.7 cm, likely representing phlegmonous changes or edema. Patient was subsequently admitted to hospitalist service for further management of his left lower leg cellulitis HOSPITAL COURSE: Once admitted, the patient was continued on IV vancomycin. He denied any fevers or chills throughout his hospitalization. The patient did have what appeared to be an abscess with cellulitic lesion. Warm compress was applied to the cellulitic lesion and drainage was expressed. Over the next 24-48 hours the patients symptoms improved and he was discharged with Doxycycline 100 mg BID for 14 days. DISCHARGE MEDICATIONS: Please see below. ALLERGIES: Please see below. PHYSICAL EXAMINATION ON DISCHARGE: VITAL SIGNS: Please see below. GENERAL: Awake, alert, and oriented. He appears in no acute distress. He is sitting comfortably up in bed HEENT: Atraumatic, normocephalic. Eyes are nonicteric. Trachea is midline. Mucou s membranes are pink and moist. Ear gauges in place NECK: No palpable cervical chain lymphadenopathy CARDIOVASCULAR EXAMINATION: Normal S1, S2. Irregularly irregular rhythm. Regular rate. No clicks, rubs, or murmurs RESPIRATORY EXAMINATION: Clear vesicular breath sounds bilaterally. No wheezes, rhonci, or rales ABDOMINAL EXAMINATION: Obese, soft, nondistended. Nontender to palpation in all 4 quadrants. No rebound tenderness or guarding. Positive bowel sounds EXTREMITIES: 2cm punctuate lesion with surrounding erythema on patients left anterior alvarez. Area of erythema has decreased from previous examination. Tenderness to palpation of left. No edema bilaterally.Full and equal pulses in bilateral upper and lower extremities SKIN: Cellulitic lesion in left anterior alvarez as described in extremity portion of exam. NEUROLOGICAL EXAMINATION: No focal neurological deficit PSYCHIATRIC EXAMINATION: Mood and affect appear appropriate LABORATORY DATA: Please see below. IMAGING: Left lower extremity Duplex Doppler venous ultrasound: Real time compression and duplex Doppler interrogation of the left lower extremity deep venous system is performed. The left common femoral, superficial femoral and popliteal veins are fully compressible with transducer pressure and demonstrate normal spontaneous and phasic flow, without evidence of deep venous thrombosis. Impression: No evidence of deep venous thrombosis of the left lower extremity femoral popliteal venous system. A heterogeneous area in the left lower leg anteriorly measures 2.7 x 0.8 x 1.7 cm, likely representing phlegmonous changes or edema. Electronically Signed by Dony Gee MD 06/15/2018 06:07 P PROGNOSIS: Good ACTIVITY: [As tolerated]. DIET: As tolerated DISCHARGE PLAN: Patient is to be discharged home. He is to take Doxycycline 100 mg BID for 14 days. He is to continue his antibiotics until full 14 day course is complete. He may continue with warm compress. He is to avoid sharing towels with others. He is to follow-up with his PCP in 2-4 weeks. He is to return to the ER if his symptoms worsen or he develops fevers, chills, nausea, or vomiting. DISCHARGE CONDITION: [Stable]. TIME SPENT ON DISCHARGE: Greater than 40 minutes. Vital Signs/I&Os Vital Signs Date Time Temp Pulse Resp B/P (MAP) Pulse Ox O2 Delivery O2 Flow Rate FiO2 06/17/18 09:04 62 06/17/18 09:04 122/58 06/17/18 06:00 97.4 16 98 06/15/18 22:51 Room Air I&O- Last 24 Hours up to 6 AM 06/17/18 06:00 Intake Total 2370 ml Output Total 2725 ml Balance -355 ml Laboratory Data Labs 24H Laboratory Tests 2 06/16/18 18:54: Vancomycin Level Trough 10.6 Microbiology Microbiology 06/15/18 Blood Culture - Preliminary, Resulted No growth after 24 hours . All specim... 06/15/18 Blood Culture - Preliminary, Resulted No growth after 24 hours . All specim... Discharge Medications Scheduled Apixaban (Eliquis) 5 Mg Tablet, 5 MG PO BID, (Reported) Aripiprazole (Aripiprazole) 5 Mg Tablet, 5 MG PO QHS, (Reported) Aspirin (Aspir 81) 81 Mg Tab, 81 MG PO DAILY, (Reported) Atenolol (Atenolol) 25 Mg Tablet, 25 MG PO DAILY, (Reported) Desvenlafaxine Succinate (Desvenlafaxine Succinate ER) 50 Mg Tab.er.24h, 50 MG PO DAILY, (Reported) Digoxin (Digoxin) 250 Mcg Tablet, 250 MCG PO DAILY, (Reported) Doxycycline Monohydrate (Doxycycline) 100 Mg Capsule, 100 MG PO BID for cellulitis Complete entire course of antibiotics before discontinuing Trazodone HCl (Trazodone HCl) 150 Mg Tablet, 150 MG PO QHS, (Reported) Allergies Coded Allergies: No Known Allergies (Unverified , 11/15/17) GME ATTESTATION GME ATTESTATION My faculty preceptor for this patient encounter was physically present during the encounter and was fully available. All aspects of the patient interview, examination, medical decision making process, and medical care plan development were reviewed and approved by the faculty preceptor. The faculty preceptor is aware and concurs with the plan as stated in the body of this note and will attest to such by his/her cosignature. ATTENDING NOTE I saw and evaluated the patient. I agree with the findings and plan of care as documented in the resident's note PERCY CRONIN DO June 17, 2018 11:31 SOFY DONALD MD June 19, 2018 16:40
== END 2018-06-17 14:13 | disposition home or self-care (01) | DRG 383 ==
LOC: M ED 16:41 → M ED INP 19:48 → M MS4PR 23:00
PROVIDERS: ADMIT Internal Medicine; ATTEND Internal Medicine
DX: L03.116 Cellulitis of left lower limb (principal); I48.91 Unspecified atrial fibrillation; F32.9 Major depressive disorder, single episode, unspecified; E66.9 Obesity, unspecified; Z68.35 Body mass index [BMI] 35.0-35.9, adult; Z79.01 Long term (current) use of anticoagulants; Z79.82 Long term (current) use of aspirin; Z79.899 Other long term (current) drug therapy; F17.200 Nicotine dependence, unspecified, uncomplicated; F41.9 Anxiety disorder, unspecified

== ENCOUNTER 2018-06-24 20:23 | Emergency (ER) | payer OTHER ==
[~2018-06-24] VITALS: Ht 172.7 cm; Wt 104.3 kg
[~2018-06-24 20:23] MED LIST changes: +DOXY-350 PO; +TRAZ1TAB14 PO
[2018-06-24] MEDS ORDERED: NS 1,000 ML IV ONE (23:00)
[2018-06-24] MEDS ORDERED: DILUENT IV ONE (23:00)
[2018-06-24] MEDS ORDERED: NACL IV ONE (23:00)
[2018-06-24] MEDS ORDERED: KETAMINE IV ONE (23:00)
[2018-06-24] MEDS ORDERED: ONDANSETRON 4MG/2ML VIAL (J2405) IV ONE (23:00)
[2018-06-25] MEDS ORDERED: KCL 10MEQ/100ML SWI (KRUN) 10 MEQ in APPROPRIATE DILUENT 1 EA IV ONE ×2
--- NOTE | 2018-06-25 00:23 | REPVR ---
EXAM: CT Abdomen and Pelvis Without Contrast EXAM DATE/TIME: 06/24/2018 10:51 PM CLINICAL HISTORY: 37 years old, male; Abdominal pain; Flank; Left; Additional info: Left renal colic TECHNIQUE: Imaging protocol: Axial computed tomography images of the abdomen and pelvis without contrast. Coronal and sagittal reformatted images were created and reviewed. Radiation optimization: All CT scans at this facility use at least one of these dose optimization techniques: automated exposure control; mA and/or kV adjustment per patient size (includes targeted exams where dose is matched to clinical indication); or iterative reconstruction. COMPARISON: CT ABD PELVIS W/O CONTRAST 07/26/2014 5:00 PM FINDINGS: Lungs: Minimal right base atelectasis. ABDOMEN: Liver: Normal. No mass. Gallbladder and bile ducts: Status post cholecystectomy. Pancreas: Normal. No ductal dilation. Spleen: Normal. No splenomegaly. Adrenals: Normal. No mass. Kidneys and ureters: Moderate left-sided hydroureteronephrosis with perinephric and periureteric distended secondary to an obstructing stone in the proximal left ureter measuring approximately 5 x 5.4 mm. Multiple nonobstructing stones are seen in the left kidney measuring up to 3 mm. Punctate nonobstructing stones in the right kidney. Stomach and bowel: Few scattered colonic diverticula without CT evidence of diverticulitis. No bowel dilatation or obstruction. Appendix: Normal appendix. PELVIS: Bladder: Unremarkable as visualized. Reproductive: Unremarkable as visualized. ABDOMEN and PELVIS: Intraperitoneal space: Normal. No free air. No significant fluid collection. Bones/joints: No acute fracture. No dislocation. Soft tissues: Unremarkable. Vasculature: Normal. No abdominal aortic aneurysm. Lymph nodes: Normal. No enlarged lymph nodes. IMPRESSION: Moderate left-sided hydroureteronephrosis with perinephric and periureteric distended secondary to an obstructing stone in the proximal left ureter measuring approximately 5 x 5.4 mm. Multiple nonobstructing stones are seen in the left kidney measuring up to 3 mm. Punctate nonobstructing stones in the right kidney. Electronically signed by: Nelly Olsen On 06/25/2018 00:23:02 AM
[2018-06-25 00:31] LABS: BASO # 0.1 10^3/uL (0.0-0.2); BASO % 0.3 % (0.0-1.0); EOS % 0.3 % (0.0-3.0); HEMATOCRIT 41.3 % (42.0-52.0); HEMOGLOBIN 14.1 g/dl (13.5-17.5); LYMPH # 1.7 10^3/uL (1.5-4.5); LYMPH % 10.9 % (24.0-44.0); MEAN CORPUSCULAR HEMOGLOBIN 30.8 pg (27.0-33.0); MEAN CORPUSCULAR HGB CONC 34.1 g/dl (32.0-36.5); MEAN CORPUSCULAR VOLUME 90.2 fl (80.0-96.0); MONO % 6.4 % (0.0-5.0); NEUTROPHILS # 12.6 10^3/uL (1.8-7.7); NEUTROPHILS % 81.6 % (36.0-66.0); PLATELET COUNT, AUTOMATED 205 10^3/uL (150-450); RED BLOOD COUNT 4.58 10^6/uL (4.30-6.10); WHITE BLOOD COUNT 15.4 10^3/uL (4.0-10.0)
[2018-06-25 00:42] LABS: INR 1.03; PROTHROMBIN TIME 13.6 SECONDS (12.1-14.4)
[2018-06-25 00:43] LABS: PARTIAL THROMBOPLASTIN TIME 26.4 SECONDS (25.4-37.6)
[2018-06-25 00:55] LABS: BLOOD UREA NITROGEN 15 MG/DL (7-18); CALCIUM LEVEL 8.9 MG/DL (8.5-10.1); CARBON DIOXIDE LEVEL 26 MEQ/L (21-32); CHLORIDE LEVEL 106 MEQ/L (98-107); GLOMERULAR FILTRATION RATE > 60.0 (>60); GLUCOSE, FASTING 107 MG/DL (70-100); POTASSIUM SERUM 3.9 MEQ/L (3.5-5.1); SODIUM LEVEL 139 MEQ/L (136-145)
[2018-06-25 01:59] VITALS: BP 121/68
[2018-06-25] MEDS ORDERED: MACR100C43 PO (02:13)
[2018-06-25] MEDS ORDERED: NORC1TAB7 PO (02:13)
[2018-06-25] MEDS ORDERED: FLOM0.4C39 PO (02:13)
[2018-06-25] MEDS ORDERED: TAMSULOSIN 0.4 MG CAP PO ONE (02:15)
[2018-06-25] MEDS ORDERED: NORCO, ANEXSIA 5/325MG TABLET (HYDROcodone/ACETAMINOPHEN) PO ONE (02:15)
[2018-06-25] MEDS ORDERED: NITROFURANTOIN (MACROBID) 100 MG CAP PO ONE (02:15)
--- NOTE | 2018-06-25 07:54 | ECGEPIP ---
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 Order Number: [id number] Reading MD: Mohan Arellano Measurements Intervals [place] Rate: 85 P: 41 GA: 167 QRS: 5 QRSD: 84 T: 29 QT: 337 QTc: 401 Interpretive Statements SINUS RHYTHM WITH OCCASIONAL VENTRICULAR PREMATURE COMPLEXES WITH OCCASIONAL SUPRAVENTRICULAR PREMATURE COMPLEXES POOR R WAVE PROGRESSION ECTOPY NEW COMPARED TO 11/17/17 Electronically Signed On 06-25-2018 7:54:23 EDT by Mohan Arellano
== END 2018-06-25 02:41 | disposition home or self-care (01) ==
LOC: M ED 20:23
DX: N10 Acute pyelonephritis (principal); N20.1 Calculus of ureter; I48.91 Unspecified atrial fibrillation; F33.9 Major depressive disorder, recurrent, unspecified; F41.9 Anxiety disorder, unspecified; F90.9 Attention-deficit hyperactivity disorder, unspecified type; F63.81 Intermittent explosive disorder; Z79.899 Other long term (current) drug therapy; Z79.01 Long term (current) use of anticoagulants; F17.210 Nicotine dependence, cigarettes, uncomplicated
CPT/HCPCS: 74176; 80048; 81001; 85025; 85610; 85730; 93005; 96361; 96374; 96375; 99284; J2405

== ENCOUNTER 2018-07-29 21:43 | Emergency (ER) | payer OTHER ==
[~2018-07-29] VITALS: Ht 172.7 cm; Wt 100.0 kg
[~2018-07-29 21:43] MED LIST changes: +FLOM0.4C39 PO; +MACR100C43 PO; +NORC1TAB7 PO
[2018-07-29] MEDS ORDERED: ACETAMINOPHEN 325 MG TAB PO ONE (22:15)
[2018-07-29] MEDS ORDERED: AMOX500C PO (22:37)
[2018-07-29] MEDS ORDERED: ACET-683 PO (22:37)
[2018-07-29] MEDS ORDERED: BENZ200C70 PO (22:37)
[2018-07-29] MEDS ORDERED: AMOXICILLIN 500 MG CAP PO ONE (22:45)
[2018-07-29 22:50] VITALS: BP 119/74
--- NOTE | 2018-07-30 08:27 | REP ---
CHEST, TWO VIEWS: There is no evidence of acute infiltrate. No pleural effusion is seen. The heart is normal in size. The mediastinal silhouette is unremarkable. The visualized osseous structures are intact. IMPRESSION: No acute pulmonary disease. Electronically Signed by Dony Gee MD 07/30/2018 07:21 P
== END 2018-07-29 22:45 | disposition home or self-care (01) ==
LOC: M ED 21:43
DX: J06.9 Acute upper respiratory infection, unspecified (principal); Z79.899 Other long term (current) drug therapy; Z79.82 Long term (current) use of aspirin; Z79.01 Long term (current) use of anticoagulants; F17.210 Nicotine dependence, cigarettes, uncomplicated

== ENCOUNTER 2018-08-30 17:59 | Emergency (ER) | payer OTHER ==
[~2018-08-30] VITALS: Ht 172.7 cm; Wt 104.5 kg
[~2018-08-30 17:59] MED LIST changes: +ACET-683 PO; +AMOX500C PO; +BENZ200C70 PO
[2018-08-30 21:29] VITALS: BP 123/71
[2018-08-30] MEDS ORDERED: DOXYCYCLINE HYCLATE 100 MG TAB PO ONE (22:45)
[2018-08-30] MEDS ORDERED: DOXY100C37 PO (22:45)
[2018-08-30] MEDS ORDERED: MUPIROCIN 2% OINT 22 GM TUBE TOP ONE (22:45)
== END 2018-08-30 23:21 | disposition home or self-care (01) ==
LOC: M ED 17:59
DX: L02.212 Cutaneous abscess of back [any part, except buttock and flank] (principal); J45.909 Unspecified asthma, uncomplicated; I48.91 Unspecified atrial fibrillation; Z79.899 Other long term (current) drug therapy; Z79.82 Long term (current) use of aspirin; Z79.01 Long term (current) use of anticoagulants; F17.210 Nicotine dependence, cigarettes, uncomplicated

== ENCOUNTER 2018-09-06 15:02 | Emergency (ER) | payer OTHER ==
[~2018-09-06] VITALS: Ht 172.7 cm; Wt 90.5 kg
[~2018-09-06 15:02] MED LIST changes: +DOXY100C37 PO; +HYDR1TAB33 PO; -HYDRO50TAB PO
[2018-09-06 15:48] LABS: BASO # 0.1 10^3/uL (0.0-0.2); BASO % 0.4 % (0.0-1.0); EOS # 0.1 10^3/uL (0.0-0.50); EOS % 1.1 % (0.0-3.0); HEMATOCRIT 42.7 % (42.0-52.0); HEMOGLOBIN 14.6 g/dl (13.5-17.5); LYMPH # 1.1 10^3/uL (1.5-4.5); LYMPH % 9.3 % (24.0-44.0); MEAN CORPUSCULAR HEMOGLOBIN 31.3 pg (27.0-33.0); MEAN CORPUSCULAR HGB CONC 34.2 g/dl (32.0-36.5); MEAN CORPUSCULAR VOLUME 91.4 fl (80.0-96.0); MONO # 0.5 10^3/uL (0.0-0.8); MONO % 4.2 % (0.0-5.0); NEUTROPHILS # 9.6 10^3/uL (1.8-7.7); NEUTROPHILS % 84.5 % (36.0-66.0); PLATELET COUNT, AUTOMATED 230 10^3/uL (150-450); RED BLOOD COUNT 4.67 10^6/uL (4.30-6.10); WHITE BLOOD COUNT 11.3 10^3/uL (4.0-10.0)
[2018-09-06 16:08] LABS: BLOOD UREA NITROGEN 11 MG/DL (7-18); CALCIUM LEVEL 9.2 MG/DL (8.5-10.1); CARBON DIOXIDE LEVEL 27 MEQ/L (21-32); CHLORIDE LEVEL 110 MEQ/L (98-107); CREATININE FOR GFR 0.97 MG/DL (0.70-1.30); GLOMERULAR FILTRATION RATE > 60.0 (>60); GLUCOSE, FASTING 135 MG/DL (70-100); POTASSIUM SERUM 4.2 MEQ/L (3.5-5.1); SODIUM LEVEL 143 MEQ/L (136-145)
[2018-09-06] MEDS ORDERED: NS 1,000 ML IV ONE (16:30)
[2018-09-06 16:53] LABS: ALBUMIN 3.9 GM/DL (3.2-5.2); ALT/SGPT 21 U/L (12-78); BILIRUBIN,DIRECT 0.1 MG/DL (0.0-0.2); BILIRUBIN,TOTAL 0.4 MG/DL (0.2-1.0); LIPASE 81 U/L (73-393); TOTAL PROTEIN 7.3 GM/DL (6.4-8.2)
[2018-09-06 16:56] LABS: INR 1.01
[2018-09-06 16:57] LABS: PARTIAL THROMBOPLASTIN TIME 25.7 SECONDS (25.0-38.4)
[2018-09-06] MEDS ORDERED: ONDANSETRON 4MG/2ML VIAL (J2405) IV ONE (17:00)
[2018-09-06] MEDS ORDERED: MORPHINE 4 MG/ML 1ML VIAL/SYRINGE (J2270) IV ONE ×2 (17:00→18:45)
[2018-09-06] MEDS ORDERED: METOCLOPRAMIDE INJ 10MG/2ML VIAL (J2765) IV ONE (19:15)
[2018-09-06] MEDS ORDERED: NORC1TAB7 PO (19:38)
[2018-09-06] MEDS ORDERED: FLOM0.4C39 PO (19:39)
[2018-09-06] MEDS ORDERED: ZOFR4TAB16 PO (19:40)
[2018-09-06 19:59] VITALS: BP 117/86
[2018-09-06] MEDS ORDERED: PERCOCET 5MG/325MG TAB PO ONE (20:00)
--- NOTE | 2018-09-07 09:24 | REP ---
REASON: History of renal calculi. COMPARISON: Multiple, the latest 06/24/2018. There is left sided hydronephrosis and hydroureter. In the distal left ureter there is an 8 mm sized calculus. There are two other calcifications on the left. They are both intrarenal and there are essentially unchanged from the prior exam. There was no right sided hydronephrosis or hydroureter. There are no right sided ureteroliths. There is a tiny 2 mm sized calcification in the inferior pole of the right kidney which is unchanged. Limited evaluation of the solid intraabdominal organs show no gross abnormalities or significant changes from the prior exam. There is no free fluid or free air in the abdomen or pelvis. Limited evaluation of the pancreas and adrenal glands showed no gross abnormalities. The bowel loops and their mesenteries are unchanged and again seen to be within normal limits. There is no free fluid or free air in the abdomen or pelvis. Bone window technique throughout the examination shows no change in the osseous structures. The lung bases are clear. IMPRESSION: 1. Distal left ureterolith with resultant hydronephrosis and hydroureter which is moderate. 2. Other findings as described above. Electronically Signed by Paul Velazco DO 09/07/2018 10:05 A
== END 2018-09-06 20:04 | disposition home or self-care (01) ==
LOC: M ED 15:02
DX: N20.1 Calculus of ureter (principal); Z87.442 Personal history of urinary calculi; I48.91 Unspecified atrial fibrillation; F41.9 Anxiety disorder, unspecified; F32.9 Major depressive disorder, single episode, unspecified; J45.909 Unspecified asthma, uncomplicated; M54.9 Dorsalgia, unspecified; F90.9 Attention-deficit hyperactivity disorder, unspecified type; R51 Headache; Z79.01 Long term (current) use of anticoagulants; Z79.82 Long term (current) use of aspirin; Z79.899 Other long term (current) drug therapy
CPT/HCPCS: 74176; 80048; 80076; 81001; 83690; 85025; 85610; 85730; 96374; 96375; 96376; 99284; J2270; J2405; J2765

== ENCOUNTER 2018-09-08 16:04 | Day surgery (SDC) | payer OTHER ==
[~2018-09-08] VITALS: Ht 172.7 cm; Wt 102.2 kg
[~2018-09-08 16:04] MED LIST changes: -HYDR1TAB33 PO; +HYDRO50TAB PO; +ZOFR4TAB16 PO
[2018-09-08] MEDS ORDERED: NS 1,000 ML IV ONE (17:30)
[2018-09-08] MEDS ORDERED: TAMSULOSIN 0.4 MG CAP PO ONE (17:30)
[2018-09-08 18:21] LABS: BASO % 0.6 % (0.0-1.0); EOS # 0.3 10^3/uL (0.0-0.50); EOS % 4.1 % (0.0-3.0); HEMATOCRIT 39.3 % (42.0-52.0); HEMOGLOBIN 13.1 g/dl (13.5-17.5); LYMPH # 2.1 10^3/uL (1.5-4.5); LYMPH % 29.4 % (24.0-44.0); MEAN CORPUSCULAR HGB CONC 33.3 g/dl (32.0-36.5); MEAN CORPUSCULAR VOLUME 89.9 fl (80.0-96.0); MONO # 0.5 10^3/uL (0.0-0.8); MONO % 6.8 % (0.0-5.0); NEUTROPHILS # 4.2 10^3/uL (1.8-7.7); NEUTROPHILS % 58.8 % (36.0-66.0); PLATELET COUNT, AUTOMATED 215 10^3/uL (150-450); RED BLOOD COUNT 4.37 10^6/uL (4.30-6.10); WHITE BLOOD COUNT 7.1 10^3/uL (4.0-10.0)
--- NOTE | 2018-09-08 18:42 | REPVR ---
EXAM: CT Abdomen and Pelvis Without Contrast EXAM DATE/TIME: 09/08/2018 5:51 PM CLINICAL HISTORY: 37 years old, male; Abdominal pain; Additional info: L flank pain, HX recent stone TECHNIQUE: Imaging protocol: Axial computed tomography images of the abdomen and pelvis without contrast. Coronal and sagittal reformatted images were created and reviewed. Radiation optimization: All CT scans at this facility use at least one of these dose optimization techniques: automated exposure control; mA and/or kV adjustment per patient size (includes targeted exams where dose is matched to clinical indication); or iterative reconstruction. COMPARISON: CT ABD PELVIS W/O CONTRAST 09/06/2018 4:47 PM FINDINGS: Lungs: Clear appearing lung bases. Liver: Normal appearing liver. Gallbladder and bile ducts: The patient is post cholecystectomy. Pancreas: Normal appearing pancreas. Spleen: Normal appearing spleen. Adrenals: Normal adrenal glands. Kidneys and ureters: There is a punctate stone upper pole right kidney. There are 2 calcified stones measuring 3 mm each lower pole the left kidney. There is moderate hydronephrosis of the left collecting system. There is moderate dilatation of the left ureter and secondary to obstruction by a irregular 7 mm calcified stone near the left ureterovesical junction. There is stranding density along the left ureter which is probably secondary to a combination of obstruction and possibly pyelonephritis. The obstruction of the left collecting system was also seen on 09/06/2018 and very similar. Stomach and bowel: Normal appearing small bowel. Appendix: The cecum is in the right pelvis and the appendix appears within the range of normal. Intraperitoneal space: There is no evidence of pneumoperitoneum. Vasculature: The aorta is normal in size. Lymph nodes: There is stranding throughout the mesentery and scattered 5 mm lymph nodes. There are moderate-sized lymph nodes in the right and left groin. Bladder: The urinary bladder appears smooth area Reproductive: Normal size prostate. Bones/joints: There is no evidence of bony abnormality. 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 IMPRESSION: 7 mm calcified irregular stone distal left ureter near the left ureterovesical junction causing high-grade obstruction with dilatation of left ureter and moderate left hydronephrosis. Some stranding density along the left kidney and left ureter are consistent with the obstruction and possibly also related to pyelonephritis. The appearance was similar on the examination of 09/06/2018. Electronically signed by: Marlon Lopez On 09/08/2018 18:41:58 PM
[2018-09-08 18:46] LABS: BLOOD UREA NITROGEN 11 MG/DL (7-18); CARBON DIOXIDE LEVEL 29 MEQ/L (21-32); CHLORIDE LEVEL 107 MEQ/L (98-107); CREATININE FOR GFR 0.94 MG/DL (0.70-1.30); GLOMERULAR FILTRATION RATE > 60.0 (>60); GLUCOSE, FASTING 92 MG/DL (70-100); POTASSIUM SERUM 3.8 MEQ/L (3.5-5.1); SODIUM LEVEL 141 MEQ/L (136-145)
[2018-09-08] MEDS ORDERED: MORPHINE 4 MG/ML 1ML VIAL/SYRINGE (J2270) IV ONE (19:00)
[2018-09-08] MEDS ORDERED: HYDR-3713 PO (19:28)
[2018-09-08] MEDS ORDERED: ONDA4TAB5 PO (19:28)
[2018-09-08] MEDS ORDERED: FLOM0.4C39 PO (19:28)
[2018-09-08] MEDS ORDERED: TRAZ-163 PO (19:28)
[2018-09-08] MEDS ORDERED: ROCURONIUM BROMIDE 50 MG/5 ML VIAL As Ordered ONE (19:35)
[2018-09-08] MEDS ORDERED: dexameTHASONE 4 MG/ML 1ML VIAL (J1100) As Ordered ONE (19:35)
[2018-09-08] MEDS ORDERED: ONDANSETRON 4MG/2ML VIAL (J2405) As Ordered ONE (19:35)
[2018-09-08] MEDS ORDERED: LIDOCAINE 2% INJ 100 MG/5 ML SDV (FOR ANES.) As Ordered ONE (19:35)
[2018-09-08] MEDS ORDERED: PROPOFOL 200 MG/20 ML VIAL As Ordered ONE (19:35)
[2018-09-08] MEDS ORDERED: fentaNYL 250 MCG/5 ML INJECTION (J3010) As Ordered ONE (19:36)
[2018-09-08] MEDS ORDERED: MIDAZOLAM INJ 2 MG/2 ML VIAL (J2250) As Ordered ONE (19:36)
[2018-09-08] MEDS ORDERED: SUCCINYLCHOLINE 100 MG/5 ML SYRINGE (J0330) As Ordered ONE ×2 (19:36→20:47)
[2018-09-08] MEDS ORDERED: MIDAZOLAM INJ 5 MG/ML VIAL (J2250) As Ordered ONE (19:37)
[2018-09-08] MEDS ORDERED: KETAMINE HCL 200 MG/20 ML VIAL As Ordered ONE (19:38)
[2018-09-08] MEDS ORDERED: SUGAMMADEX SODIUM 500 MG/5 ML VIAL (BRIDION) As Ordered ONE (19:42)
[2018-09-08] MEDS ORDERED: CONRAY-60 60% 50ML VIAL (Q9961) As Ordered ONE (19:57)
--- NOTE | 2018-09-08 20:15 | SMCUROLCON ---
Urology Consultation General Date of Consultation 09/08/18 Reason For Consultation This patient is seen for Left Flank Pain. History of Present Illness This is a 37 y/o M w/ a PMH significant for a fib (on eliquis) and kidney stones, presenting to the ER w/ recurrent left flank pain. He was seen in the ER 2 nights ago for severe left flank pain and was found to have an obstructing 7-8mm distal left ureteral stone w/ moderate hydro. He was sent home after the pain improved and comes back tonight w/ worsened pain. A repeat CT once again shows the stone in the distal ureter as well as a 3mm stone in the left kidney. He notes nausea but no vomiting. He denies dysuria. He denies fevers or chills. Past Medical History Medical History see HPI Surgical Hstory cholecystectomy, ESWL, cardiac ablation Allergies Allergies: Coded Allergies: No Known Allergies (Unverified , 11/15/17) Review of Systems General: Denies: Chills, Night Sweats, Fatigue, Other Symptoms Pulmonary: Denies: Dyspnea, Cough Cardiovascular: Denies Chest Pain, Denies Palpitations Gastrointestinal: Reports: Nausea; Denies: Vomiting, Abdominal Pain Genitourinary: Denies: Dysuria, Frequency, Incontinence, Hematuria Musculoskeletal: Reports: Back Pain (left flank pain) Psych: Reports: Mood Normal Physical Examination General Exam: Alert, No Acute Distress Chest Exam: Normal air movement Heart Exam: Rate Normal, Regular Rhythm Abdomen Exam: Soft Neuro Exam: Normal Speech Psych Exam: Mental status NL, Mood NL Vital Signs/I&O Vital Signs Date Time Temp Pulse Resp B/P (MAP) Pulse Ox O2 Delivery O2 Flow Rate FiO2 09/08/18 19:13 98.0 76 121/70 (87) 100 09/08/18 16:05 18 Room Air Laboratory Data 24H Labs Laboratory Tests 2 09/08/18 17:21: Urine Color YELLOW, Urine Appearance CLEAR, Urine pH 7.0, Urine Specific Anton 1.009, Urine Protein NEGATIVE, Urine Glucose (UA) NEGATIVE, Urine Ketones NEGAT [place], Urine Blood NEGATIVE, Urine Nitrite NEGATIVE, Urine Bilirubin NEGATIVE, Urine Urobilinogen 0.2, Urine Leukocyte Esterase NEGATIVE, Urine WBC (Auto) 1, Urine RBC (Auto) 1, Urine Hyaline Casts (Auto) 0, Urine Bacteria (Auto) NEGATIVE, Urine Squamous Epithelial Cells 0, Urine Mucus (Auto) SMALL, Urine Sperm (Auto) 09/08/18 18:02: Immature Granulocyte % (Auto) 0.3, White Blood Count 7.1, Red Blood Count 4.37, Hemoglobin 13.1L, Hematocrit 39.3L, Mean Corpuscular Volume 89.9, Mean Corpuscular Hemoglobin 30.0, Mean Corpuscular Hemoglobin Concent 33.3, Red Cell Distribution Width 12.5, Platelet Count 215, Neutrophils (%) (Auto) 58.8, Lymphocytes (%) (Auto) 29.4, Monocytes (%) (Auto) 6.8H, Eosinophils (%) (Auto) 4.1H, Basophils (%) (Auto) 0.6, Neutrophils # (Auto) 4.2, Lymphocytes # (Auto) 2.1, Monocytes # (Auto) 0.5, Eosinophils # (Auto) 0.3, Basophils # (Auto) 0.0, Nucleated Red Blood Cells % (auto) 0.0, Anion Gap 5L, Glomerular Filtration Rate > 60.0, Blood Urea Nitrogen 11, Creatinine 0.94, Sodium Level 141, Potassium Level 3.8, Chloride Level 107, Carbon Dioxide Level 29, Calcium Level 9.0 CBC/BMP Laboratory Tests 09/08/18 18:02 Red Blood Count 4.37, Mean Corpuscular Volume 89.9, Mean Corpuscular Hemoglobin 30.0, Mean Corpuscular Hemoglobin Concent 33.3, Red Cell Distribution Width 12.5, Neutrophils (%) (Auto) 58.8, Lymphocytes (%) (Auto) 29.4, Monocytes (%) (Auto) 6.8 H, Eosinophils (%) (Auto) 4.1 H, Basophils (%) (Auto) 0.6, Neut rophils # (Auto) 4.2, Lymphocytes # (Auto) 2.1, Monocytes # (Auto) 0.5, Eosinophils # (Auto) 0.3, Basophils # (Auto) 0.0, Calcium Level 9.0 Assessment This is a 37 y/o M coming in to the ER for the second time this week w/ severe left flank pain due to an obstructing distal left ureteral stone. I recommended that we take him to the OR this evening for cystoscopy, left ureteroscopy w/ laser lithotripsy, left ureteral stent placement. After a discussion of the risks and benefits of surgery informed consent was signed. Plan - informed consent signed for cystoscopy, left ureteroscopy w/ laser lithotripsy, left ureteral stent placement - NPO - 2g ancef OCOR - if pain is controlled postop he can be discharged home SUMAYA GARNER MD Sep 08, 2018 19:26
[2018-09-08] MEDS ORDERED: ceFAZolin 2 GM/D5W 50 ML IV BAG (J0690 PER 500MG) As Ordered ONE (20:33)
[2018-09-08] MEDS ORDERED: ACETAMINOPHEN 1000MG 100ML IV BTL (OFIRMEV) (J0131 PER 10MG) As Ordered ONE (20:47)
--- NOTE | 2018-09-08 21:01 | ECGEPIP ---
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
[2018-09-08] MEDS ORDERED: ONDANSETRON 4MG/2ML VIAL (J2405) IV PRN (21:30)
[2018-09-08] MEDS ORDERED: oxyCODONE 5MG TAB PO PRN (21:30)
[2018-09-08] MEDS ORDERED: fentaNYL 100 MCG/2 ML INJECTION (J3010) IV PRN (21:30)
[2018-09-08] MEDS ORDERED: LR 1,000 ML IV SCH (21:30)
[2018-09-08] MEDS ORDERED: PERCOCET 5MG/325MG TAB PO PRN (22:00)
[2018-09-08 23:35] VITALS: BP 115/65
--- NOTE | 2018-09-09 07:01 | REP ---
The retrograde pyelogram: A series of three intraoperative fluoroscopic views are performed during left ureteral stent placement: The final film demonstrates the proximal and distal stent pigtails are in satisfactory positions. Fluoroscopic exposure time is 9 seconds. Fluoroscopic images are performed with last image hold technology and require no additional radiation. Electronically Signed by Dony Lovett MD 09/09/2018 06:52 A
--- NOTE | 2018-09-09 22:40 | RO ---
DATE OF PROCEDURE: 09/08/2018 PREPROCEDURE DIAGNOSIS: Left kidney and ureteral stones. POSTPROCEDURE DIAGNOSIS: Left kidney and ureteral stones. PROCEDURE: Cystoscopy, left ureteroscopy with laser lithotripsy and basket extraction of stones, left retrograde pyelogram with intraoperative interpretation of images, left ureteral stent placement. SURGEON: Dr. Igor Hernández FIRE MANAGER: None. ANESTHESIA: General. OPERATIVE INDICATIONS: This is a 37-year-old male who presented to the emergency room two nights ago with severe left flank, obstructing 7-8 mm distal left ureteral stone. His pain was improved, and he was discharged home. He came back in [facility] with the exact same symptoms and a CT showed the stone was still in the same location. Due to intractable pain, he was brought to the operating room today for treatment. DESCRIPTION OF PROCEDURE: The patient was brought to the operating room and general anesthesia was induced. Prophylactic antibiotics were infused. He was then placed in the dorsal lithotomy position and prepped and draped in the usual sterile fashion. A rigid cystoscope was then inserted into the urethral meatus and advanced into the bladder. Once inside the bladder, a guidewire was advanced up the left collecting system. I then went up the left collecting system with a short semi-rigid ureteroscope and within the distal ureter, 7 mm stone was seen. The stone was fragmented into smaller pieces using 272 micron laser fiber. All the fragments were then removed using a basket. I went into the more proximal ureter and did not see any more stones inside the ureter. I then removed the short semi-rigid ureteroscope and then advanced the ureteral access sheath up to the left collecting system. I went up the access sheath with a flexible ureteroscope and then examined the kidney thoroughly. The kidney was moderate to severely dilated. Two stones, both measuring about 3 mm in size, were found in mid pole calices. Both of these stones were removed using a basket. No additional stones were seen. A retrograde pyelogram was performed, and it was notable for moderate-severe left hydronephrosis. No extravasation. I then withdrew the ureteroscope along with the access sheath and no additional stones were seen within the ureter. I then utilized the wire to advance a 6-Ukrainian x 22-32 cm JJ ureteral stent up into the left collecting system. The wire was then removed, and there were adequate curls of the stent in the left renal pelvis and in the bladder. The bladder was then emptied of all fluids, and this marked the conclusion of the procedure. The patient was then taken out of the dorsal lithotomy position, awakened from anesthesia and transported to the recovery room in stable condition. Estimated blood loss: 5 mL. Complications: None. Specimens: Kidney stone fragments. PLAN: We will schedule the patient to followup in the clinic in a week or two for stent removal.
== END 2018-09-08 23:35 | disposition home or self-care (01) ==
LOC: M ED 16:04 → M SDC 19:25
PROVIDERS: ATTEND Urology
DX: N20.0 Calculus of kidney (principal); N20.1 Calculus of ureter; J45.909 Unspecified asthma, uncomplicated; I48.91 Unspecified atrial fibrillation; Z79.01 Long term (current) use of anticoagulants; Z79.899 Other long term (current) drug therapy; F90.9 Attention-deficit hyperactivity disorder, unspecified type; F63.81 Intermittent explosive disorder; F17.210 Nicotine dependence, cigarettes, uncomplicated
CPT/HCPCS: 52356; 74420; 80048; 81001; 82360; 85025; 88300; 93005; 99284; C1769; C1894; C2617; J0131; J0330; J0690; J1100; J2250; J2405; J3010; Q9961

== ENCOUNTER 2018-12-05 14:28 | Emergency (ER) | payer OTHER ==
[~2018-12-05 14:28] MED LIST changes: +HYDR-3713 PO; +HYDR1TAB33 PO; -HYDRO50TAB PO; +ONDA4TAB5 PO; +TRAZ-163 PO
[2018-12-05] MEDS ORDERED: CEFU1TAB22 PO (15:07)
--- NOTE | 2018-12-05 15:11 | REP ---
Chest x-ray: Two views. History: Cough. Comparison chest x-ray: July 29, 2018. Findings: The lungs are symmetrically aerated and clear. Pleural angles are sharp. Heart size is normal. Pulmonary vasculature is not increased. No bony abnormality is seen. Impression: No active disease. Electronically Signed by Antonio Rodrigues MD 12/05/2018 03:03 P
[2018-12-05] MEDS ORDERED: EQ S0.65 NARES (16:17)
[2018-12-05] MEDS ORDERED: MUCI1TAB16 PO (16:17)
[2018-12-05] MEDS ORDERED: FLON1SPR NARES (16:17)
[2018-12-05 16:21] VITALS: BP 128/74
== END 2018-12-05 16:27 | disposition home or self-care (01) ==
LOC: M ED 14:28
DX: J06.9 Acute upper respiratory infection, unspecified (principal); J31.0 Chronic rhinitis; I48.91 Unspecified atrial fibrillation; J45.909 Unspecified asthma, uncomplicated; F90.9 Attention-deficit hyperactivity disorder, unspecified type; M54.5 Low back pain; N20.0 Calculus of kidney; F17.210 Nicotine dependence, cigarettes, uncomplicated; Z79.82 Long term (current) use of aspirin; Z79.899 Other long term (current) drug therapy

== ENCOUNTER 2019-02-01 12:49 | Emergency (ER) | payer OTHER ==
[~2019-02-01] VITALS: Ht 172.7 cm; Wt 78.6 kg
[2019-02-01 12:49] VITALS: BP 135/80
[~2019-02-01 12:49] MED LIST changes: +CEFU1TAB22 PO; +DIGO0.253 PO; +EQ S0.65 NARES; +FLON1SPR NARES; +MUCI1TAB16 PO
[2019-02-01] MEDS ORDERED: DESV100T3 (12:56)
[2019-02-01] MEDS ORDERED: ELIM5CRE2 TOP (13:55)
== END 2019-02-01 14:00 | disposition home or self-care (01) ==
LOC: M ED 12:49
DX: B86 Scabies (principal); F17.218 Nicotine dependence, cigarettes, with other nicotine-induced disorders

== ENCOUNTER 2019-03-02 08:38 | Emergency (ER) | payer OTHER ==
[~2019-03-02] VITALS: Ht 172.7 cm; Wt 107.6 kg
[2019-03-02 08:38] VITALS: BP 118/67
[~2019-03-02 08:38] MED LIST changes: +DESV100T3; +ELIM5CRE2 TOP; +ONDA-83 PO; -ONDA4TAB5 PO; -TRAZ-163 PO; +TRAZ-257 PO; -TRAZ10TA PO; +TRAZ1TAB12 PO
[2019-03-02] MEDS ORDERED: QUET5TAB (08:45)
[2019-03-02] MEDS ORDERED: DOXY100C PO (09:18)
== END 2019-03-02 09:40 | disposition home or self-care (01) ==
LOC: M ED 08:38
DX: L02.212 Cutaneous abscess of back [any part, except buttock and flank] (principal); I48.91 Unspecified atrial fibrillation; J45.909 Unspecified asthma, uncomplicated; F17.210 Nicotine dependence, cigarettes, uncomplicated; Z79.82 Long term (current) use of aspirin; Z79.899 Other long term (current) drug therapy

== ENCOUNTER → 2020-02-02 | Outpatient (REF) | payer OTHER ==
[~2020-02-02] MED LIST changes: -ASPI81TA85 PO; +ASPI81TA86 PO; +DOXY100C PO; +QUET5TAB
== END ==
LOC: M LAB REF 17:23
PROVIDERS: ATTEND Surgery
DX: L05.91 Pilonidal cyst without abscess (principal)

== ENCOUNTER → 2020-02-29 | Outpatient (CLI) | payer OTHER ==
[~2020-02-29] MED LIST changes: +ASPI81TA26 PO; -CLIN150C14 PO; +CLIN150C15 PO; +SERO200T PO; +SERO50TA PO; +WELLTAB38 PO
== END ==
LOC: M LABSMTC 11:22
PROVIDERS: ATTEND Anesthesiology
DX: Z01.812 Encounter for preprocedural laboratory examination (principal); Z20.822 Contact with and (suspected) exposure to COVID-19

== ENCOUNTER 2020-03-05 06:23 | Day surgery (SDC) | payer OTHER ==
[~2020-03-05] VITALS: Ht 172.7 cm; Wt 119.3 kg
[~2020-03-05 06:23] MED LIST changes: +QUET50TA3; -QUET5TAB
[2020-03-05] MEDS ORDERED: LR 1,000 ML IV ONE (07:00)
[2020-03-05] MEDS ORDERED: fentaNYL 100 MCG/2 ML INJECTION (J3010) As Ordered ONE (07:58)
[2020-03-05] MEDS ORDERED: propofoL 500 MG/50 ML VIAL As Ordered ONE (07:58)
[2020-03-05] MEDS ORDERED: MIDAZOLAM INJ 2MG/2ML VIAL (J2250 PER 1MG) As Ordered ONE (07:58)
[2020-03-05] MEDS ORDERED: LIDOCAINE 2% 100MG/5ML SDV (FOR ANES.) As Ordered ONE (07:59)
[2020-03-05] MEDS ORDERED: ONDANSETRON 4MG/2ML VIAL As Ordered ONE (07:59)
[2020-03-05] MEDS ORDERED: dexameTHASONE 4 MG/ML 1ML VIAL (J1100 PER 1MG) As Ordered ONE (07:59)
[2020-03-05] MEDS ORDERED: LR 1,000 ML IV SCH (10:00)
[2020-03-05] MEDS ORDERED: HYDROMORPHONE HCL 0.5 MG/ 0.5 ML SYRINGE (J1170 PER 1) IV PRN (10:00)
[2020-03-05] MEDS ORDERED: oxyCODONE 5MG TAB PO PRN (10:00)
[2020-03-05] MEDS ORDERED: fentaNYL 100 MCG/2 ML INJECTION (J3010) IV PRN (10:00)
[2020-03-05] MEDS ORDERED: ONDANSETRON 4MG/2ML VIAL IV PRN (10:00)
[2020-03-05] MEDS ORDERED: NORCO, ANEXSIA 5/325MG TABLET (HYDROcodone/ACETAMINOPHEN) PO PRN (10:15)
--- NOTE | 2020-03-05 13:18 | RO ---
OPERATIVE NOTE DATE OF OPERATION: 03/05/2020 PREOPERATIVE DIAGNOSIS: Pilonidal cyst. POSTOPERATIVE DIAGNOSIS: Pilonidal cyst. PROCEDURE: Pilonidal cystectomy. SURGEON: Dony Tovar DO STOKER INSTALLER: None ANESTHESIA: Spinal. COMPLICATIONS: None ESTIMATED BLOOD LOSS: 10 mL INDICATIONS FOR PROCEDURE: The patient is a 39-year-old male who presents with a pilonidal cyst. Recommendation was to proceed with excision in the operating room. Risks and benefits of the procedure not limited to but including bleeding, infection, damage to surrounding structures, need for further surgery were discussed in detail to the patient. Informed consent was obtained and the procedure was planned. DESCRIPTION OF PROCEDURE: The patient was brought back to operating room 7. He was placed in the prone position. The presacral area was sterilely prepped and draped with Betadine. Next, a timeout was done to confirm proper patient and proper procedure. Following that, an elliptical incision was made around the cyst and the sinus tracts using a 15 blade scalpel. Incision was then carried down into the presacral fascia using cautery. Once the specimen was removed, cautery was used to control hemostasis around the wound. The wound was then irrigated, packed with 4x4s and covered with an ABD, thus ending procedure. The patient tolerated the procedure well and was sent to PACU in stable condition.
[2020-03-05 14:00] VITALS: BP 126/75
[2020-03-05] MEDS ORDERED: SILVER NITRATE APPLICATOR TOP SCH (14:00)
== END 2020-03-05 15:11 | disposition home or self-care (01) ==
LOC: M SDC 06:23
PROVIDERS: ATTEND Surgery
DX: L05.91 Pilonidal cyst without abscess (principal); K21.9 Gastro-esophageal reflux disease without esophagitis; E66.01 Morbid (severe) obesity due to excess calories; F17.218 Nicotine dependence, cigarettes, with other nicotine-induced disorders; F43.10 Post-traumatic stress disorder, unspecified; F41.9 Anxiety disorder, unspecified; F32.9 Major depressive disorder, single episode, unspecified; Z79.899 Other long term (current) drug therapy; Z79.82 Long term (current) use of aspirin
CPT/HCPCS: 11770; 88304; J1100; J2250; J2405; J3010

== ENCOUNTER 2020-05-16 22:18 | Emergency (ER) | payer OTHER ==
[~2020-05-16] VITALS: Ht 172.7 cm; Wt 123.8 kg
[2020-05-17] MEDS ORDERED: GABAPENTIN 100 MG CAP PO ONE (03:35)
[2020-05-17] MEDS ORDERED: NEUR100C PO (03:36)
[2020-05-17 03:54] VITALS: BP 132/70
== END 2020-05-17 03:55 | disposition home or self-care (01) ==
LOC: M ED 22:18
DX: M54.12 Radiculopathy, cervical region (principal); F17.200 Nicotine dependence, unspecified, uncomplicated; Z79.82 Long term (current) use of aspirin; Z79.899 Other long term (current) drug therapy

== ENCOUNTER → 2020-06-25 | Outpatient (REF) ==
[~2020-06-25] MED LIST changes: +NEUR100C PO
--- NOTE | 2020-06-25 13:36 | REPPI ---
INDICATION: DDD KNEE COMPARISON: None. TECHNIQUE: AP, lateral, bilateral oblique and sunrise views. FINDINGS: Mild tricompartmental osteoarthritic degenerative changes include increased sclerosis along the tibial plateau and posterior patellar margin with marginal spurring/early osteophyte formation primarily noted at the medial and patellofemoral compartments. No acute fracture or dislocation. No obvious effusion. 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 <Electronically signed by Tristen Barney > 06/25/20 [id number]
== END ==
LOC: M PLAIMG 09:21
PROVIDERS: ATTEND Internal Medicine
DX: M17.12 Unilateral primary osteoarthritis, left knee (principal)

== ENCOUNTER 2020-10-28 19:36 | Emergency (ER) | payer OTHER ==
[~2020-10-28] VITALS: Ht 172.7 cm; Wt 108.0 kg
[~2020-10-28 19:36] MED LIST changes: -CLIN150C15 PO; +CLIN150C17 PO; -DOXY100C PO; +DOXY100C3 PO; -DOXY100C37 PO; +DOXY1CAP62 PO; -QUET50TA3; +QUET50TA4
[2020-10-28] MEDS ORDERED: SERO150T2 PO (19:42)
[2020-10-29 02:22] LABS: BASO % 0.3 % (0.0-1.0); EOS # 0.3 10^3/uL (0.0-0.5); EOS % 5.3 % (0.0-3.0); HEMATOCRIT 41.5 % (42.0-52.0); HEMOGLOBIN 13.9 g/dl (13.5-17.5); LYMPH # 1.7 10^3/uL (1.5-5.0); LYMPH % 27.9 % (24.0-44.0); MEAN CORPUSCULAR HEMOGLOBIN 30.5 pg (27.0-33.0); MEAN CORPUSCULAR HGB CONC 33.5 g/dl (32.0-36.5); MEAN CORPUSCULAR VOLUME 91.2 fl (80.0-96.0); MONO # 0.7 10^3/uL (0.0-0.8); MONO % 11.3 % (2.0-8.0); NEUTROPHILS # 3.3 10^3/uL (1.5-8.5); NEUTROPHILS % 54.9 % (36.0-66.0); PLATELET COUNT, AUTOMATED 182 10^3/uL (150-450); RED BLOOD COUNT 4.55 10^6/uL (4.30-6.10); WHITE BLOOD COUNT 6.1 10^3/uL (4.0-10.0)
[2020-10-29 02:28] LABS: ALBUMIN 3.5 GM/DL (3.2-5.2); ALT/SGPT 26 U/L (12-78); BILIRUBIN,DIRECT 0.1 MG/DL (0.0-0.2); BILIRUBIN,TOTAL 0.3 MG/DL (0.2-1.0); BLOOD UREA NITROGEN 11 MG/DL (7-18); CALCIUM LEVEL 8.5 MG/DL (8.5-10.1); CARBON DIOXIDE LEVEL 28 MEQ/L (21-32); CHLORIDE LEVEL 109 MEQ/L (98-107); CREATININE FOR GFR 0.68 MG/DL (0.70-1.30); GLOMERULAR FILTRATION RATE > 60.0 (>60); GLUCOSE, FASTING 92 MG/DL (70-100); SODIUM LEVEL 142 MEQ/L (136-145); TOTAL PROTEIN 6.6 GM/DL (6.4-8.2)
[2020-10-29 02:42] LABS: ERYTHROCYTE SEDIMENTATION RATE 23 mm/hr (0-15)
[2020-10-29] MEDS ORDERED: NS 1,000 ML IV ONE (02:45)
[2020-10-29] MEDS ORDERED: CLINDAMYCIN 900 MG in IV 1 EA IV ONE (02:45)
[2020-10-29] MEDS ORDERED: KETOROLAC 30 MG/ML 1ML VIAL IV ONE (02:50)
[2020-10-29 03:12] LABS: RSV AMPLIFICATION NEGATIVE (NEGATIVE)
[2020-10-29 05:10] VITALS: BP 143/22
== END 2020-10-29 05:12 | disposition home or self-care (01) ==
LOC: M ED 19:36
DX: L03.116 Cellulitis of left lower limb (principal); R09.81 Nasal congestion; J45.909 Unspecified asthma, uncomplicated; F90.9 Attention-deficit hyperactivity disorder, unspecified type; F17.200 Nicotine dependence, unspecified, uncomplicated; Z79.899 Other long term (current) drug therapy
CPT/HCPCS: 80048; 80076; 83605; 85025; 85652; 86140; 87040; 87631; 96365; 96366; 96375; 99284; J1885

== ENCOUNTER 2020-12-08 19:04 | Emergency (ER) | payer OTHER ==
[~2020-12-08] VITALS: Ht 172.7 cm; Wt 104.5 kg
[~2020-12-08 19:04] MED LIST changes: +DOXY-443 PO; -DOXY1CAP62 PO; +SERO150T2 PO
--- OUTSIDE RECORDS SUMMARY | 2020-12-08 19:10 | CCD ---
Author Author Antonio Julien Organization [facility] Address Unknown Phone Unavailable Care Team Providers Care Recycling Operations Manager Name Role Phone Galina Julien PCP Unavailable Allergies, Adverse Reactions, Alerts Allergy Substance Code C odeSystem Reaction Severity Critic ality Status Start Date nkda Moderate Active Medications Medication Medication Code Medication CodeSystem Start Date Stop Date Route Dose Status Fill Instructions Pristiq [id number] RxNorm 2019-08-01 2019-09-09 oral 100 mg tablet extended release 24 hr completed for 30 day(s) Abilify [id number] RxNorm 2018-02-19 2018-03-21 oral 5 mg tablet completed for 30 day(s) Pristiq [id number] RxNorm 2019-09-09 2019-09-09 oral 50 mg tablet extended release 24 hr completed for 30 day(s) Pristiq [id number] RxNorm 2019-09-09 2019-12-08 oral 50 mg tablet extended release 24 hr completed for 30 day(s) Trileptal [id number] RxNorm 2017-09-29 2018-02-19 oral 300 mg tablet completed as directed Pristiq [id number] RxNorm 2019-09-09 2019-09-09 oral 100 mg tablet extended release 24 hr completed for 30 day(s) Pristiq [id number] RxNorm 2019-04-22 2019-05-22 oral 50 mg tablet extended release 24 hr completed for 30 day(s) Latuda [id number] RxNorm 2017-09-29 2018-01-06 oral 60 mg tablet completed Seroquel [id number] RxNorm 2020-05-28 2020-07-27 oral 200 mg tablet completed for 30 day(s) Seroquel 244258 RxNorm 2020-02-22 2020-05-22 oral 50 mg tablet completed for 30 day(s) Pristiq 353422 RxNorm 2017-07-30 2017-09-28 oral 50 mg tablet extended release 24 hr completed for 30 day(s) [facility] 2017-[facility] 2017-02-05 oral 5 mg tablet completed [facility]ol [id number] [facility] 2018-02-19 2018-03-21 oral 10 mg tablet completed for 30 day(s) [facility]il[facility] [id number] [facility] 2018-12-06 2018-12-20 oral 5 mg tablet completed for 14 day(s) trazodone [id number] [facility] 2018-06-18 2018-07-18 oral 100 mg tablet completed for 30 day(s) bupropion HCl [id number] Rx or 2019-10-27 2019-11-26 or al 75 mg tablet completed for 30 day(s) hydroxyzine HCl [id number] R xNorm 2016-12-23 2017-02-05 or al 50 mg 2 tablet at bedtime completed Take 2 tablet by mouth at bedtime [facility] [id number] [facility] 2017-09-29 2017-10-20 oral 25 mg tablet extended release 24 hr completed for 30 day(s) Wellbutrin XL 741034 Rx or 2020-01-09 2020-04-22 or al 300 mg tablet extended release 24 hr completed for 30 day(s) Wellbutrin XL 159691 Rx or 2020-05-28 2020-08-26 or al 300 mg tablet extended release 24 hr completed for 30 day(s) hydroxyzine HCl [id number] R xNorm 2016-10-07 2016-12-23 or al 50 mg 1 tablet at bedtime completed Take 1 tablet by mouth at bedtime as needed for 30 day(s) clonidine HCl [id number] Rx or 2016-08-18 2016-10-07 or al 0.3 mg 1 tablet every night completed Take 1 tablet by mouth every night as needed for 30 day(s) [facility] [id number] [facility] 2018-11-02 2018-12-02 oral 15 mg tablet completed for 30 day(s) Wellbutrin XL [id number] Rx or 2019-11-30 2020-01-09 or al 150 mg tablet extended release 24 hr completed for 30 day(s) [facility]eroquel 113592 [facility] 2019-03-28 2019-05-23 oral 100 mg tablet completed for 30 day(s) Effexor XR 315161 [facility] 2016-07-28 2016-08-04 oral 75 mg capsule,extended release 24hr completed for 7 day(s) Pristiq 891449 [facility] 2017-09-29 2017-10-20 oral 50 mg tablet extended release 24 hr completed for 30 day(s) Pristiq [id number] [facility] 2018-03-30 2018-05-04 oral 25 mg tablet extended release 24 hr completed for 30 day(s) Zyprexa 545344 [facility] 2017-03-31 2017-07-06 oral 15 mg tablet completed Pristiq 969231 [facility] 2017-07-06 2017-07-30 oral 50 mg tablet extended release 24 hr completed for 30 day(s) Zyprexa 641892 [facility] 2017-02-05 2017-03-31 oral 10 mg tablet completed Pristiq [id number] [facility] 2020-05-28 2020-08-26 oral 100 mg tablet extended release 24 hr completed for 30 day(s) Depakote ER [id number] [facility] 2016-08-18 2016-10-07 or al 500 mg 2 tablet extended release 24 hr twice a day completed Take 2 tablet by mouth twice a day for 30 day(s) Pristiq 048189 [facility] 2018-05-04 2018-09-19 oral 50 mg tablet extended release 24 hr completed for 30 day(s) Pristiq 004510 [facility] 2019-08-01 2019-09-09 oral 50 mg tablet extended release 24 hr completed for 30 day(s) trazodone [id number] [facility] 2018-05-04 2018-06-18 oral 150 mg tablet completed for 30 day(s) trazodone 437343 [facility] 2018-11-01 2018-12-06 oral 100 mg tablet completed Pristiq 319659 [facility] 2017-10-20 2017-12-19 oral 100 mg tablet extended release 24 hr completed for 30 day(s) Pristiq [id number] [facility] 2017-07-30 2017-09-28 oral 25 mg tablet extended release 24 hr completed for 30 day(s) Paxil 875035 [facility] 2016-08-18 2016-10-07 oral 30 mg 1 tablet once a day completed Take 1 tablet by mouth once a day for 30 day(s) Seroquel [id number] RxNorm 2019-08-01 2020-02-22 oral 200 mg tablet completed for 30 day(s) Garry 332702 RxNorm 2018-11-01 2018-11-02 oral 5 mg tablet completed for 30 day(s) Seroquel 597292 RxNorm 2019-02-28 2019-03-28 oral 50 mg tablet completed for 30 day(s) Seroquel 550229 RxNorm 2020-05-28 2020-07-27 oral 50 mg tablet completed for 30 day(s) hydroxyzine HCl 440391 R xNorm 2018-02-19 2018-06-18 or al 50 mg tablet completed Klonopin [id number] RxNorm 2019-06-20 2019-07-20 oral 0.5 mg tablet completed for 30 day(s) trazodone 773001 Rx[facility] 2018-02-19 2018-03-21 oral 150 mg tablet completed for 30 day(s) Pristiq 785054 RxNorm 2019-04-22 2019-07-22 oral 100 mg tablet extended release 24 hr completed for 30 day(s) Pristiq 605859 RxNorm 2019-11-30 2020-05-22 oral 100 mg tablet extended release 24 hr completed for 30 day(s) Pristiq 6353832 RxNorm 2017-05-12 2017-07-06 oral 25 mg tablet extended release 24 hr completed for 30 day(s) trazodone 843850 RxNorm 2018-07-21 2018-09-19 oral 100 mg tablet completed for 30 day(s) Prozac 709821 RxNorm 2017-03-17 2017-03-30 oral 20 mg capsule completed for 30 day(s) Ambien 065861 RxNorm 2017-03-17 2017-03-30 oral 5 mg 1 tablet at bedtime completed Take 1 tablet by mouth at bedtime for 30 day(s) Pristiq 380490 RxNorm 2019-09-09 2019-11-30 oral 100 mg tablet extended release 24 hr completed for 30 day(s) Seroquel 855201 RxNorm 2019-05-23 2019-07-20 oral 200 mg tablet completed for 30 day(s) Latuda 7156659 RxNorm 2018-01-06 2018-02-05 oral 20 mg tablet completed for 30 day(s) Pristiq 686171 RxNorm 2018-09-24 2019-04-22 oral 100 mg tablet extended release 24 hr completed for 30 day(s) Abilify 566336 RxNorm 2018-01-06 2018-02-05 oral 5 mg tablet completed for 30 day(s) Abilify 188176 RxNorm 2018-05-04 2018-09-19 oral 5 mg tablet completed for 30 day(s) Paxil 597905 RxNorm 2016-10-07 2017-01-21 oral 30 mg 1/2 tablet twice a day completed Take 1/2 tablet by mouth twice a day for 30 day(s) clonidine HCl [id number] RxN orm 2016-07-28 2016-08-18 or al 0.1 mg tablet completed as needed for 30 day(s) Seroquel 136690 RxNorm 2018-12-06 2019-01-05 oral 50 mg tablet completed for 30 day(s) Problems Problem Name Code CodeSy stem Alternate Code Alternate CodeSystem Start Date End Date Status Narrative Post-traumatic stress disorder, unspecified [id number] SNOMED-CT 2016-01-08 Active Intermittent explosive disorder [id number] SNOMED-CT 2016-02-05 Active of family member [id number] SNOMED-CT 2016-07-29 Active Depressive episode, unspecified [id number] SNOMED-CT 2016-01-08 Active Relevant diagnostic tests/laboratory data Narrative No Information Procedures Procedure Name Code Code System Target Site Date of Procedure Status Service Delivery Location Device Cod e Device Name Device UID Psychotherapy, 45 minutes with patient [id number] SNOMED-CT () 2016-01-[address], [id number] Psychotherapy, 45 minutes with patient [id number] SNOMED-CT () 2016-02-[address], [id number] Psychotherapy, 45 minutes with patient [id number] SNOMED-CT () 2016-02-[address], [id number] Psychotherapy, 45 minutes with patient [id number] SNOMED-CT () 2016-02-[address], [id number] Psychotherapy, 45 minutes with patient [id number] SNOMED-CT () 2016-03-[address], [id number] Psychotherapy, 45 minutes with patient [id number] SNOMED-CT () 2016-03-[address], [id number] Psychotherapy, 45 minutes with patient [id number] SNOMED-CT () 2019-01-[address], [id number] Psychotherapy, 45 minutes with patient [id number] SNOMED-CT () 2019-02-[address], [id number] Psychotherapy, 45 minutes with patient [id number] SNOMED-CT () 2019-03-[address], [id number] Psychotherapy, 45 minutes with patient [id number] SNOMED-CT () 2019-04-[address], [id number] Psychotherapy, 45 minutes with patient [id number] SNOMED-CT () 2020-03-[address], [id number] Psychotherapy, 45 minutes with patient [id number] SNOMED-CT () 2020-07-[address], [id number] Psychotherapy, 45 minutes with patient [id number] SNOMED-CT () 2018-07-[address], [id number] Psychotherapy, 45 minutes with patient [id number] SNOMED-CT () 2018-08-[address], [id number] Psychotherapy, 45 minutes with patient [id number] SNOMED-CT () 2018-09-[address], [id number] Psychotherapy, 45 minutes with patient [id number] SNOMED-CT () 2018-10-[address], [id number] Psychotherapy, 45 minutes with patient [id number] SNOMED-CT () 2018-10-[address], [id number] Psychotherapy, 45 minutes with patient [id number] SNOMED-CT () 2018-12-[address], [id number] Psychotherapy, 45 minutes with patient [id number] SNOMED-CT () 2017-10-[address], [id number] Psychotherapy, 45 minutes with patient [id number] SNOMED-CT () 2017-12-[address], [id number] Psychotherapy, 45 minutes with patient [id number] SNOMED-CT () 2018-01-[address], [id number] Psychotherapy, 45 minutes with patient [id number] SNOMED-CT () 2018-02-[address], [id number] Psychotherapy, 45 minutes with patient [id number] SNOMED-CT () 2018-06-[address], [id number] Psychotherapy, 45 minutes with patient [id number] SNOMED-CT () 2018-06-[address], [id number] Psychotherapy, 45 minutes with patient [id number] SNOMED-CT () 2016-11-[address], [id number] Psychotherapy, 45 minutes with patient [id number] SNOMED-CT () 2017-01-[address], [id number] Psychotherapy, 45 minutes with patient [id number] SNOMED-CT () 2017-01-[address], [id number] Psychotherapy, 45 minutes with patient [id number] SNOMED-CT () 2017-03-[address], [id number] Psychotherapy, 45 minutes with patient [id number] SNOMED-CT () 2017-05-[address], [id number] Psychotherapy, 45 minutes with patient [id number] SNOMED-CT () 2017-09-[address], [id number] Psychotherapy, 45 minutes with patient [id number] SNOMED-CT () 2016-06-[address], [id number] Psychotherapy, 45 minutes with patient [id number] SNOMED-CT () 2016-07-[address], [id number] Psychotherapy, 45 minutes with patient [id number] SNOMED-CT () 2016-08-[address], [id number] Psychotherapy, 45 minutes with patient [id number] SNOMED-CT () 2016-09-[address], [id number] Psychotherapy, 45 minutes with patient [id number] SNOMED-CT () 2016-10-[address], [id number] Psychotherapy, 45 minutes with patient [id number] SNOMED-CT () 2016-10-[address], [id number] Psychotherapy, 45 minutes with patient [id number] SNOMED-CT () 2016-03-[address], [id number] Psychotherapy, 45 minutes with patient [id number] SNOMED-CT () 2016-03-[address], [id number] Psychotherapy, 45 minutes with patient [id number] SNOMED-CT () 2016-04-[address], [id number] Psychotherapy, 45 minutes with patient [id number] SNOMED-CT () 2016-04-[address], [id number] Psychotherapy, 45 minutes with patient [id number] SNOMED-CT () 2016-05-[address], [id number] Psychotherapy, 45 minutes with patient [id number] SNOMED-CT () 2016-06-[address], [id number] Initial Psychiatric Evaluation [id number] SNOMED-CT () 2016-07-[address], [id number] Health Monitoring / Risk Reduction Counseling - Brief [id number] SNOMED-CT () 2017-06-[address], [id number] Health Monitoring / Risk Reduction Counseling - [facility] [id number] SNOMED-CT () 2016-06-[address], [id number] Est. Patient - E&M Intermediate [id number] SNOMED-CT () 2016-08-[address], [id number] Est. Patient - E&M Intermediate [id number] SNOMED-CT () 2016-12-[address], [id number] Est. Patient - E&M Intermediate [id number] SNOMED-CT () 2017-01-[address], [id number] [id number] Est. Patient - E&M Intermediate [id number] SNOMED-CT () 2017-02-[address], [id number] Est. Patient - E&M Intermediate [id number] SNOMED-CT () 2017-10-[address], [id number] Est. Patient - E&M Intermediate [id number] SNOMED-CT () 2017-12-[address], [id number] Est. Patient - E&M Intermediate [id number] SNOMED-CT () 2019-01-[address], [id number] Est. Patient - E&M Intermediate [id number] SNOMED-CT () 2019-02-[address], [id number] Est. Patient - E&M Intermediate [id number] SNOMED-CT () 2019-03-[address], [id number] Est. Patient - E&M Intermediate [id number] SNOMED-CT () 2019-04-[address], [id number] Est. Patient - E&M Intermediate [id number] SNOMED-CT () 2020-05-[address], [id number] Est. Patient - E&M Intermediate [id number] SNOMED-CT () 2020-08-[address], [id number] Est. Patient - E&M Intermediate [id number] SNOMED-CT () 2018-01-[address], [id number] Est. Patient - E&M Intermediate [id number] SNOMED-CT () 2018-02-[address], [id number] Est. Patient - E&M Intermediate [id number] SNOMED-CT () 2018-06-[address], [id number] Est. Patient - E&M Intermediate [id number] SNOMED-CT () 2018-09-[address], [id number] Est. Patient - E&M Intermediate [id number] SNOMED-CT () 2018-11-[address], [id number] Est. Patient - E&M Intermediate [id number] SNOMED-CT () 2018-12-[address], [id number] Est. Patient - E&M Brief [id number] SNOMED-CT () 2016-12-[address], [id number] Est. Patient - E&M Brief [id number] SNOMED-CT () 2017-05-[address], [id number] Est. Patient - E&M Brief [id number] SNOMED-CT () 2018-03-[address], [id number] Est. Patient - E&M Brief [id number] SNOMED-CT () 2018-05-[address], [id number] Est. Patient - E&M Brief [id number] SNOMED-CT () 2018-07-[address], [id number] Est. Patient - E&M Brief [id number] SNOMED-CT () 2019-05-[address], [id number] Est. Patient - E&M Brief [id number] SNOMED-CT () 2019-06-[address], [id number] Est. Patient - E&M Brief [id number] SNOMED-CT () 2019-08-01 completed [facility] [address], [id number] [id number] Est. Patient - E&M Brief [id number] SNOMED-CT () 2019-11-[address], [id number] Est. Patient - E&M Brief [id number] SNOMED-CT () 2020-02-[address], [id number] Est. Patient - E&M Expanded [id number] SNOMED-CT () 2016-10-[address], [id number] Est. Patient - E&M Expanded [id number] SNOMED-CT () 2017-03-[address], [id number] [id number] Est. Patient - E&M Expanded [id number] SNOMED-CT () 2017-03-[address], [id number] Est. Patient - E&M Expanded [id number] SNOMED-CT () 2017-05-[address], [id number] [id number] Est. Patient - E&M Expanded [id number] SNOMED-CT () 2017-07-[address], [id number] Est. Patient - E&M Expanded [id number] SNOMED-CT () 2017-07-[address], [id number] Est. Patient - E&M Expanded [id number] SNOMED-CT () 2017-09-[address], [id number] Est. Patient - E&M Expanded [id number] SNOMED-CT () 2017-09-[address], [id number] Individual Psychotherapy [id number] SNOMED-CT () 2016-05-[address], [id number] Individual Psychotherapy [id number] SNOMED-CT () 2016-12-[address], [id number] [id number] Individual Psychotherapy [id number] SNOMED-CT () 2017-08-[address], [id number] Individual Psychotherapy [id number] SNOMED-CT () 2017-11-[address], [id number] Individual Psychotherapy [id number] SNOMED-CT () 2017-12-[address], 367746878 [id number] Individual Psychotherapy [id number] SNOMED-CT () 2018-04-[address], [id number] [id number] Individual Psychotherapy [id number] SNOMED-CT () 2019-11-[address], [id number] [id number] Individual Psychotherapy [id number] SNOMED-CT () 2019-12-[address], [id number] [id number] Individual Psychotherapy [id number] SNOMED-CT () 2020-01-[address], [id number] [id number] Individual Psychotherapy [id number] SNOMED-CT () 2020-03-[address], [id number] [id number] Individual Psychotherapy [id number] SNOMED-CT () 2020-04-[address], [id number] Individual Psychotherapy [id number] SNOMED-CT () 2020-06-[address], [id number] Individual Psychotherapy [id number] SNOMED-CT () 2019-05-[address], [id number] Individual Psychotherapy [id number] SNOMED-CT () 2019-06-[address], [id number] Individual Psychotherapy [id number] SNOMED-CT () 2019-08-[address], [id number] [id number] Individual Psychotherapy [id number] SNOMED-CT () 2019-09-[address], [id number] Individual Psychotherapy [id number] SNOMED-CT () 2019-10-[address], [id number] [id number] Individual Psychotherapy [id number] SNOMED-CT () 2019-10-[address], [id number] [id number] Individual Psychotherapy [id number] SNOMED-CT () 2016-01-[address], [id number] Individual Psychotherapy [id number] SNOMED-CT () 2016-02-[address], [id number] Individual Psychotherapy [id number] SNOMED-CT () 2016-02-[address], [id number] [id number] Individual Psychotherapy [id number] SNOMED-CT () 2016-02-[address], [id number] [id number] Individual Psychotherapy [id number] SNOMED-CT () 2016-03-[address], 124081294 [id number] Individual Psychotherapy [id number] SNOMED-CT () 2016-03-[address], [id number] [id number] Individual Psychotherapy [id number] SNOMED-CT () 2019-01-[address], [id number] Individual Psychotherapy [id number] SNOMED-CT () 2019-02-[address], 448917439 [id number] Individual Psychotherapy [id number] SNOMED-CT () 2019-03-[address], [id number] Individual Psychotherapy [id number] SNOMED-CT () 2019-04-[address], [id number] [id number] Individual Psychotherapy [id number] SNOMED-CT () 2020-03-[address], [id number] Individual Psychotherapy [id number] SNOMED-CT () 2020-07-[address], [id number] Individual Psychotherapy [id number] SNOMED-CT () 2018-07-[address], [id number] Individual Psychotherapy [id number] SNOMED-CT () 2018-08-[address], [id number] Individual Psychotherapy [id number] SNOMED-CT () 2018-09-[address], 922097040 [id number] Individual Psychotherapy [id number] SNOMED-CT () 2018-10-[address], [id number] Individual Psychotherapy [id number] SNOMED-CT () 2018-10-[address], [id number] [id number] Individual Psychotherapy [id number] SNOMED-CT () 2018-12-[address], [id number] [id number] Individual Psychotherapy [id number] SNOMED-CT () 2017-10-[address], [id number] [id number] Individual Psychotherapy [id number] SNOMED-CT () 2017-12-[address], 540344984 [id number] Individual Psychotherapy [id number] SNOMED-CT () 2018-01-[address], 243096985 [id number] Individual Psychotherapy [id number] SNOMED-CT () 2018-02-[address], 201470132 [id number] Individual Psychotherapy [id number] SNOMED-CT () 2018-06-[address], [id number] [id number] Individual Psychotherapy [id number] SNOMED-CT () 2018-06-[address], [id number] [id number] Individual Psychotherapy [id number] SNOMED-CT () 2016-11-[address], [id number] Individual Psychotherapy [id number] SNOMED-CT () 2017-01-[address], [id number] [id number] Individual Psychotherapy [id number] SNOMED-CT () 2017-01-[address], 580141474 [id number] Individual Psychotherapy [id number] SNOMED-CT () 2017-03-[address], 918451654 [id number] Individual Psychotherapy [id number] SNOMED-CT () 2017-05-[address], [id number] [id number] Individual Psychotherapy [id number] SNOMED-CT () 2017-09-[address], [id number] [id number] Individual Psychotherapy [id number] SNOMED-CT () 2016-06-[address], 581473619 [id number] Individual Psychotherapy [id number] SNOMED-CT () 2016-07-[address], 347858888 [id number] Individual Psychotherapy [id number] SNOMED-CT () 2016-08-[address] [place], [id number] [id number] Individual Psychotherapy [id number] SNOMED-CT () 2016-09-[address], [id number] Individual Psychotherapy [id number] SNOMED-CT () 2016-10-[address], 625856903 [id number] Individual Psychotherapy [id number] SNOMED-CT () 2016-10-[address], [id number] Individual Psychotherapy [id number] SNOMED-CT () 2016-03-[address], [id number] Individual Psychotherapy [id number] SNOMED-CT () 2016-03-[address], [id number] [id number] Individual Psychotherapy [id number] SNOMED-CT () 2016-04-[address], 563461045 [id number] Individual Psychotherapy [id number] SNOMED-CT () 2016-04-[address], 458162652 [id number] Individual Psychotherapy [id number] SNOMED-CT () 2016-05-[address], [id number] [id number] Individual Psychotherapy [id number] SNOMED-CT () 2016-06-[address], 386103554 [id number] Psychiatric Diagnostic Evaluation without medical serv ices [id number] SNOMED-CT () 2016-01-[address], [id number] SNOMED-CT () 2019-09-[address], [id number] Encounters/Encounter Diagnoses Encounter Name Encounter Code Diagnosis Code Diagnosis Name Diagnosis CodeSystem Date of Diagnosis Service Delivery L ocation Telehealth Medication Therapy Low Complexity [id number] Post-traumatic stress disor mahin, unspecified SNOMED-CT 2020-08-27 [facility] [address] [place] [address], [phone] Vital Signs Code CodeSystem Vitals Date Value 8462-4 [facility] Blood Press ure-Diastolic 2019-03-28 120 mm[HG] 73034-8 [facility] Weight 2019-03-28 243 [lb_av] 8302-2 [facility] Height 2019-03-28 67 [in_i] 8480-6 [facility] Blood Press ure-Systolic 2019-03-28 80 mm[HG] 81417-9 [facility] BMI 2019-03-28 38.06 (lb/in2) 8867-4 [facility] Heart Rate 2019-03-28 97 /min Social History Element Description Description Start Date End Date Code CodeSystem AdditionalInfo SexAssignedAtBirth Male 1980 M AdministrativeGender Hospital Discharge Instructions * Reason For Referral Medical Equipment * FDA Assessments * Goals Section Goals Planned DateTime To decrease anxiety/depression symptoms 2016-02-05
--- OUTSIDE RECORDS SUMMARY | 2020-12-08 19:10 | CCD ---
Author Author Antonio Julien Organization [facility] Address Unknown Phone Unavailable Care Team Providers Care Payroll Secretary Name Role Phone Galina Julien PCP Unavailable Allergies, Adverse Reactions, Alerts Allergy Substance Code C odeSystem Reaction Severity Critic ality Status Start Date nkda Moderate Active Medications Medication Medication Code Medication CodeSystem Start Date Stop Date Route Dose Status Fill Instructions clonidine HCl [id number] RxN orm 2016-08-18 2016-10-07 or al 0.3 mg 1 tablet every night completed Take 1 tablet by mouth every night as needed for 30 day(s) Pristiq 150478 RxNorm 2017-10-20 2017-12-19 oral 100 mg tablet extended release 24 hr completed for 30 day(s) Pristiq 077369 RxNorm 2017-07-30 2017-09-28 oral 50 mg tablet extended release 24 hr completed for 30 day(s) Pristiq 699518 RxNorm 2020-05-28 2020-08-26 oral 100 mg tablet extended release 24 hr completed for 30 day(s) Effexor XR 174831 RxNorm 2016-07-28 2016-08-04 oral 75 mg capsule,extended release 24hr completed for 7 day(s) Pristiq 006110 RxNorm 2018-05-04 2018-09-19 oral 50 mg tablet extended release 24 hr completed for 30 day(s) Seroquel 718440 RxNorm 2019-03-28 2019-05-23 oral 100 mg tablet completed for 30 day(s) hydroxyzine HCl 253896 R xNorm 2016-10-07 2016-12-23 or al 50 mg 1 tablet at bedtime completed Take 1 tablet by mouth at bedtime as needed for 30 day(s) Seroquel 992703 RxNorm 2020-05-28 2020-07-27 oral 200 mg tablet completed for 30 day(s) Pristiq 156686 RxNorm 2019-09-09 2019-09-09 oral 50 mg tablet extended release 24 hr completed for 30 day(s) Paxil 996525 RxNorm 2016-08-18 2016-10-07 oral 30 mg 1 tablet once a day completed Take 1 tablet by mouth once a day for 30 day(s) hydroxyzine HCl 239296 R xNorm 2018-02-19 2018-06-18 or al 50 mg tablet completed Pristiq [id number] RxNorm 2017-05-12 2017-07-06 oral 25 mg tablet extended release 24 hr completed for 30 day(s) Pristiq 374844 RxNorm 2018-09-24 2019-04-22 oral 100 mg tablet extended release 24 hr completed for 30 day(s) Seroquel 275364 RxNorm 2020-02-22 2020-05-22 oral 50 mg tablet completed for 30 day(s) Abilify 728365 RxNorm 2018-12-06 2018-12-20 oral 5 mg tablet completed for 14 day(s) Seroquel 996910 RxNorm 2020-05-28 2020-07-27 oral 50 mg tablet completed for 30 day(s) bupropion HCl 101635 RxN orm 2019-10-27 2019-11-26 or al 75 mg tablet completed for 30 day(s) Pristiq 930012 RxNorm 2019-04-22 2019-07-22 oral 100 mg tablet extended release 24 hr completed for 30 day(s) Abilify 253440 RxNorm 2018-11-01 2018-11-02 oral 5 mg tablet completed for 30 day(s) Trileptal 624721 RxNorm 2017-09-29 2018-02-19 oral 300 mg tablet completed as directed trazodone 819255 RxNorm 2018-06-18 2018-07-18 oral 100 mg tablet completed for 30 day(s) Pristiq 345553 RxNorm 2019-08-01 2019-09-09 oral 100 mg tablet extended release 24 hr completed for 30 day(s) Pristiq 9802144 RxNorm 2017-09-29 2017-10-20 oral 25 mg tablet extended release 24 hr completed for 30 day(s) Pristiq 362148 RxNorm 2017-07-06 2017-07-30 oral 50 mg tablet extended release 24 hr completed for 30 day(s) [facility]11[facility] 2019-05-22 oral 50 mg tablet extended release 24 hr completed for 30 day(s) [facility] 706411 [facility] 2018-11-01 2018-12-06 oral 100 mg tablet completed Wellbutrin XL 952190 RxN orm 2019-11-30 2020-01-09 or al 150 mg tablet extended release 24 hr completed for 30 day(s) Latuda 9527659 [facility] 2018-01-06 2018-02-05 oral 20 mg tablet completed for 30 day(s) [facility] 1088241 [facility] 2017-07-30 2017-09-28 oral 25 mg tablet extended release 24 hr completed for 30 day(s) trazodone 352758 [facility] 2018-07-21 2018-09-19 oral 100 mg tablet completed for 30 day(s) Klonopin 400055 [facility] 2019-06-20 2019-07-20 oral 0.5 mg tablet completed for 30 day(s) Paxil 846991 [facility] 2016-10-07 2017-01-21 oral 30 mg 1/2 tablet twice a day completed Take 1/2 tablet by mouth twice a day for 30 day(s) Seroquel 034070 [facility] 2019-08-01 2020-02-22 oral 200 mg tablet completed for 30 day(s) Abilify 722368 [facility] 2018-01-06 2018-02-05 oral 5 mg tablet completed for 30 day(s) Zyprexa 738357 [facility] 2017-01-21 2017-02-05 oral 5 mg tablet completed propranolol 729206 [facility] 2018-02-19 2018-03-21 oral 10 mg tablet completed for 30 day(s) Latuda 4016250 [facility] 2017-09-29 2018-01-06 oral 60 mg tablet completed Pristiq 332367 [facility] 2019-09-09 2019-11-30 oral 100 mg tablet extended release 24 hr completed for 30 day(s) Depakote ER [id number] [facility] 2016-08-18 2016-10-07 or al 500 mg 2 tablet extended release 24 hr twice a day completed Take 2 tablet by mouth twice a day for 30 day(s) Zyprexa 866473 RxNorm 2017-03-31 2017-07-06 oral 15 mg tablet completed [facility] 554206 [facility]-07-28 2016-08-18 or al 0.1 mg tablet completed as needed for 30 day(s) Ambien 447486 RxNo 2017-03-17 2017-03-30 oral 5 mg 1 tablet at bedtime completed Take 1 tablet by mouth at bedtime for 30 day(s) [facility] 141291 [facility] 2017-02-05 2017-03-31 oral 10 mg tablet completed Pristiq 904123 RxNorm 2019-09-09 2019-12-08 oral 50 mg tablet extended release 24 hr completed for 30 day(s) Abilify 970397 RxNorm 2018-11-02 2018-12-02 oral 15 mg tablet completed for 30 day(s) Pristiq 193716 RxNorm 2019-09-09 2019-09-09 oral 100 mg tablet extended release 24 hr completed for 30 day(s) [facility] 213288 [facility] 2016-12-23 2017-02-05 or al 50 mg 2 tablet at bedtime completed Take 2 tablet by mouth at bedtime Pristiq 264189 RxNorm 2017-09-29 2017-10-20 oral 50 mg tablet extended release 24 hr completed for 30 day(s) Wellbutrin XL 048912 [facility] 2020-05-28 2020-08-26 or al 300 mg tablet extended release 24 hr completed for 30 day(s) trazodone 318291 RxNorm 2018-02-19 2018-03-21 oral 150 mg tablet completed for 30 day(s) Pristiq 2672009 RxNorm 2018-03-30 2018-05-04 oral 25 mg tablet extended release 24 hr completed for 30 day(s) Pristiq 730909 RxNorm 2019-08-01 2019-09-09 oral 50 mg tablet extended release 24 hr completed for 30 day(s) Seroquel 812201 RxNorm 2019-02-28 2019-03-28 oral 50 mg tablet completed for 30 day(s) Pristiq 088995 RxNorm 2019-11-30 2020-05-22 oral 100 mg tablet extended release 24 hr completed for 30 day(s) Abilify 340406 RxNorm 2018-02-19 2018-03-21 oral 5 mg tablet completed for 30 day(s) Wellbutrin XL 996169 RxN or 2020-01-09 2020-04-22 or al 300 mg tablet extended release 24 hr completed for 30 day(s) Abilify 665365 RxNorm 2018-05-04 2018-09-19 oral 5 mg tablet completed for 30 day(s) Seroquel 037795 RxNorm 2019-05-23 2019-07-20 oral 200 mg tablet completed for 30 day(s) [facility] 575236 [facility] 2017-03-17 2017-03-30 oral 20 mg capsule completed for 30 day(s) [facility] 308934 [facility] 2018-12-06 2019-01-05 oral 50 mg tablet completed for 30 day(s) [facility] 405994 [facility] 2018-05-04 2018-06-18 oral 150 mg tablet completed for 30 day(s) Problems Problem Name Code CodeSy stem Alternate Code Alternate CodeSystem Start Date End Date Status Narrative Depressive episode, unspecified [id number] SNOMED-CT 2016-01-08 Active of family member [id number] SNOMED-CT 2016-07-29 Active Post-traumatic stress disorder, unspecified 81101275 SNOMED-CT 2016-01-08 Active Intermittent explosive disorder 70605200 SNOMED-CT 2016-02-05 Active Relevant diagnostic tests/laboratory data Narrative No Information Procedures Procedure Name Code Code System Target Site Date of Procedure Status Service Delivery Location Device Cod e Device Name Device UID Psychotherapy, 45 minutes with patient [id number] SNOMED-CT () 2016-01-[address], [id number] Psychotherapy, 45 minutes with patient [id number] SNOMED-CT () 2016-02-[address], [id number] Psychotherapy, 45 minutes with patient [id number] SNOMED-CT () 2016-02-[address], [id number] Psychotherapy, 45 minutes with patient [id number] SNOMED-CT () 2016-02-[address], [id number] Psychotherapy, 45 minutes with patient [id number] SNOMED-CT () 2016-03-[address], [id number] Psychotherapy, 45 minutes with patient [id number] SNOMED-CT () 2016-03-[address], [id number] Psychotherapy, 45 minutes with patient [id number] SNOMED-CT () 2019-01-[address], [id number] Psychotherapy, 45 minutes with patient [id number] SNOMED-CT () 2019-02-[address], [id number] Psychotherapy, 45 minutes with patient [id number] SNOMED-CT () 2019-03-[address], [id number] Psychotherapy, 45 minutes with patient [id number] SNOMED-CT () 2019-04-[address], [id number] Psychotherapy, 45 minutes with patient [id number] SNOMED-CT () 2020-03-[address], [id number] Psychotherapy, 45 minutes with patient [id number] SNOMED-CT () 2020-07-[address], [id number] Psychotherapy, 45 minutes with patient [id number] SNOMED-CT () 2018-07-[address], [id number] Psychotherapy, 45 minutes with patient [id number] SNOMED-CT () 2018-08-[address], [id number] Psychotherapy, 45 minutes with patient [id number] SNOMED-CT () 2018-09-[address], [id number] Psychotherapy, 45 minutes with patient [id number] SNOMED-CT () 2018-10-[address], [id number] Psychotherapy, 45 minutes with patient [id number] SNOMED-CT () 2018-10-[address], [id number] Psychotherapy, 45 minutes with patient [id number] SNOMED-CT () 2018-12-[address], [id number] Psychotherapy, 45 minutes with patient [id number] SNOMED-CT () 2017-10-[address], [id number] Psychotherapy, 45 minutes with patient [id number] SNOMED-CT () 2017-12-[address], [id number] Psychotherapy, 45 minutes with patient [id number] SNOMED-CT () 2018-01-[address], [id number] Psychotherapy, 45 minutes with patient [id number] SNOMED-CT () 2018-02-[address], [id number] Psychotherapy, 45 minutes with patient [id number] SNOMED-CT () 2018-06-[address], [id number] Psychotherapy, 45 minutes with patient [id number] SNOMED-CT () 2018-06-[address], [id number] Psychotherapy, 45 minutes with patient [id number] SNOMED-CT () 2016-11-[address], [id number] Psychotherapy, 45 minutes with patient [id number] SNOMED-CT () 2017-01-[address], [id number] Psychotherapy, 45 minutes with patient [id number] SNOMED-CT () 2017-01-[address], [id number] Psychotherapy, 45 minutes with patient [id number] SNOMED-CT () 2017-03-[address], [id number] Psychotherapy, 45 minutes with patient [id number] SNOMED-CT () 2017-05-[address], [id number] Psychotherapy, 45 minutes with patient [id number] SNOMED-CT () 2017-09-[address], [id number] Psychotherapy, 45 minutes with patient [id number] SNOMED-CT () 2016-06-[address], [id number] Psychotherapy, 45 minutes with patient [id number] SNOMED-CT () 2016-07-[address], [id number] Psychotherapy, 45 minutes with patient [id number] SNOMED-CT () 2016-08-[address], [id number] Psychotherapy, 45 minutes with patient [id number] SNOMED-CT () 2016-09-[address], [id number] Psychotherapy, 45 minutes with patient [id number] SNOMED-CT () 2016-10-[address], [id number] Psychotherapy, 45 minutes with patient [id number] SNOMED-CT () 2016-10-[address], [id number] Psychotherapy, 45 minutes with patient [id number] SNOMED-CT () 2016-03-[address], [id number] Psychotherapy, 45 minutes with patient [id number] SNOMED-CT () 2016-03-[address], [id number] Psychotherapy, 45 minutes with patient [id number] SNOMED-CT () 2016-04-[address], [id number] Psychotherapy, 45 minutes with patient [id number] SNOMED-CT () 2016-04-[address], [id number] Psychotherapy, 45 minutes with patient [id number] SNOMED-CT () 2016-05-[address], [id number] Psychotherapy, 45 minutes with patient [id number] SNOMED-CT () 2016-06-[address], [id number] Initial Psychiatric Evaluation [id number] SNOMED-CT () 2016-07-[address], [id number] Health Monitoring / Risk Reduction Counseling - Brief [id number] SNOMED-CT () 2017-06-[address], [id number] Health Monitoring / Risk Reduction Counseling - [facility] [id number] SNOMED-CT () 2016-06-[address], [id number] Est. Patient - E&M Intermediate [id number] SNOMED-CT () 2016-08-[address], [id number] Est. Patient - E&M Intermediate [id number] SNOMED-CT () 2016-12-[address], [id number] Est. Patient - E&M Intermediate [id number] SNOMED-CT () 2017-01-[address], [id number] Est. Patient - E&M Intermediate [id number] SNOMED-CT () 2017-02-[address], [id number] Est. Patient - E&M Intermediate [id number] SNOMED-CT () 2017-10-[address], [id number] Est. Patient - E&M Intermediate [id number] SNOMED-CT () 2017-12-[address], [id number] Est. Patient - E&M Intermediate [id number] SNOMED-CT () 2019-01-[address], [id number] Est. Patient - E&M Intermediate [id number] SNOMED-CT () 2019-02-[address], [id number] Est. Patient - E&M Intermediate [id number] SNOMED-CT () 2019-03-[address], [id number] Est. Patient - E&M Intermediate [id number] SNOMED-CT () 2019-04-[address], [id number] Est. Patient - E&M Intermediate [id number] SNOMED-CT () 2020-05-[address], [id number] Est. Patient - E&M Intermediate [id number] SNOMED-CT () 2020-08-[address], [id number] Est. Patient - E&M Intermediate [id number] SNOMED-CT () 2018-01-[address], [id number] Est. Patient - E&M Intermediate [id number] SNOMED-CT () 2018-02-[address], [id number] Est. Patient - E&M Intermediate [id number] SNOMED-CT () 2018-06-[address], [id number] [id number] Est. Patient - E&M Intermediate [id number] SNOMED-CT () 2018-09-[address], [id number] Est. Patient - E&M Intermediate [id number] SNOMED-CT () 2018-11-[address], [id number] [id number] Est. Patient - E&M Intermediate [id number] SNOMED-CT () 2018-12-[address], [id number] Est. Patient - E&M Brief [id number] SNOMED-CT () 2016-12-[address], [id number] [id number] Est. Patient - E&M Brief [id number] SNOMED-CT () 2017-05-[address], [id number] Est. Patient - E&M Brief [id number] SNOMED-CT () 2018-03-[address], [id number] Est. Patient - E&M Brief [id number] SNOMED-CT () 2018-05-[address], [id number] [id number] Est. Patient - E&M Brief [id number] SNOMED-CT () 2018-07-[address], [id number] Est. Patient - E&M Brief [id number] SNOMED-CT () 2019-05-[address], [id number] Est. Patient - E&M Brief [id number] SNOMED-CT () 2019-06-[address], [id number] [id number] Est. Patient - E&M Brief [id number] SNOMED-CT () 2019-08-01 completed [facility] [address], [id number] Est. Patient - E&M Brief [id number] SNOMED-CT () 2019-11-[address], [id number] Est. Patient - E&M Brief [id number] SNOMED-CT () 2020-02-[address], [id number] Est. Patient - E&M Expanded [id number] SNOMED-CT () 2016-10-[address], [id number] Est. Patient - E&M Expanded [id number] SNOMED-CT () 2017-03-[address], [id number] Est. Patient - E&M Expanded [id number] SNOMED-CT () 2017-03-[address], [id number] [id number] Est. Patient - E&M Expanded [id number] SNOMED-CT () 2017-05-[address], [id number] [id number] Est. Patient - E&M Expanded [id number] SNOMED-CT () 2017-07-[address], [id number] [id number] Est. Patient - E&M Expanded [id number] SNOMED-CT () 2017-07-[address], [id number] Est. Patient - E&M Expanded [id number] SNOMED-CT () 2017-09-[address], [id number] Est. Patient - E&M Expanded [id number] SNOMED-CT () 2017-09-[address], [id number] Individual Psychotherapy [id number] SNOMED-CT () 2016-05-[address], [id number] Individual Psychotherapy [id number] SNOMED-CT () 2016-12-[address], [id number] Individual Psychotherapy [id number] SNOMED-CT () 2017-08-[address], [id number] Individual Psychotherapy [id number] SNOMED-CT () 2017-11-[address], [id number] Individual Psychotherapy [id number] SNOMED-CT () 2017-12-[address], [id number] [id number] Individual Psychotherapy [id number] SNOMED-CT () 2018-04-[address], [id number] Individual Psychotherapy [id number] SNOMED-CT () 2020-09-[address], [id number] Individual Psychotherapy [id number] SNOMED-CT () 2019-11-[address], [id number] [id number] Individual Psychotherapy [id number] SNOMED-CT () 2019-12-[address], [id number] [id number] Individual Psychotherapy [id number] SNOMED-CT () 2020-01-[address], [id number] Individual Psychotherapy [id number] SNOMED-CT () 2020-03-[address], [id number] [id number] Individual Psychotherapy [id number] SNOMED-CT () 2020-04-[address], [id number] Individual Psychotherapy [id number] SNOMED-CT () 2020-06-[address], [id number] Individual Psychotherapy [id number] SNOMED-CT () 2019-05-[address], [id number] [id number] Individual Psychotherapy [id number] SNOMED-CT () 2019-06-[address], [id number] [id number] Individual Psychotherapy [id number] SNOMED-CT () 2019-08-[address], [id number] [id number] Individual Psychotherapy [id number] SNOMED-CT () 2019-09-[address], [id number] Individual Psychotherapy [id number] SNOMED-CT () 2019-10-[address], [id number] [id number] Individual Psychotherapy [id number] SNOMED-CT () 2019-10-[address], [id number] [id number] Individual Psychotherapy [id number] SNOMED-CT () 2016-01-[address], [id number] Individual Psychotherapy [id number] SNOMED-CT () 2016-02-[address], [id number] Individual Psychotherapy [id number] SNOMED-CT () 2016-02-[address], [id number] Individual Psychotherapy [id number] SNOMED-CT () 2016-02-[address], [id number] Individual Psychotherapy [id number] SNOMED-CT () 2016-03-[address], [id number] Individual Psychotherapy [id number] SNOMED-CT () 2016-03-[address], [id number] Individual Psychotherapy [id number] SNOMED-CT () 2019-01-[address], [id number] Individual Psychotherapy [id number] SNOMED-CT () 2019-02-[address], [id number] Individual Psychotherapy [id number] SNOMED-CT () 2019-03-[address], [id number] Individual Psychotherapy [id number] SNOMED-CT () 2019-04-[address], [id number] Individual Psychotherapy [id number] SNOMED-CT () 2020-03-[address], [id number] Individual Psychotherapy [id number] SNOMED-CT () 2020-07-[address], [id number] Individual Psychotherapy [id number] SNOMED-CT () 2018-07-[address], [id number] [id number] Individual Psychotherapy [id number] SNOMED-CT () 2018-08-[address], [id number] [id number] Individual Psychotherapy [id number] SNOMED-CT () 2018-09-[address], [id number] Individual Psychotherapy [id number] SNOMED-CT () 2018-10-[address], [id number] Individual Psychotherapy [id number] SNOMED-CT () 2018-10-[address], [id number] Individual Psychotherapy [id number] SNOMED-CT () 2018-12-[address], [id number] Individual Psychotherapy [id number] SNOMED-CT () 2017-10-[address], [id number] Individual Psychotherapy [id number] SNOMED-CT () 2017-12-[address], [id number] Individual Psychotherapy [id number] SNOMED-CT () 2018-01-[address], [id number] Individual Psychotherapy [id number] SNOMED-CT () 2018-02-[address], [id number] Individual Psychotherapy [id number] SNOMED-CT () 2018-06-[address], [id number] Individual Psychotherapy [id number] SNOMED-CT () 2018-06-[address], [id number] Individual Psychotherapy [id number] SNOMED-CT () 2016-11-[address], [id number] Individual Psychotherapy [id number] SNOMED-CT () 2017-01-[address], [id number] [id number] Individual Psychotherapy [id number] SNOMED-CT () 2017-01-[address], [id number] [id number] Individual Psychotherapy [id number] SNOMED-CT () 2017-03-[address], [id number] Individual Psychotherapy [id number] SNOMED-CT () 2017-05-[address], [id number] Individual Psychotherapy [id number] SNOMED-CT () 2017-09-[address], [id number] Individual Psychotherapy [id number] SNOMED-CT () 2016-06-[address], [id number] [id number] Individual Psychotherapy [id number] SNOMED-CT () 2016-07-[address], [place], [id number] [id number] Individual Psychotherapy [id number] SNOMED-CT () 2016-08-[address], [id number] Individual Psychotherapy [id number] SNOMED-CT () 2016-09-[address], [id number] [id number] Individual Psychotherapy [id number] SNOMED-CT () 2016-10-[address], [id number] Individual Psychotherapy [id number] SNOMED-CT () 2016-10-[address], [id number] Individual Psychotherapy [id number] SNOMED-CT () 2016-03-[address], [id number] Individual Psychotherapy [id number] SNOMED-CT () 2016-03-[address], [id number] [id number] Individual Psychotherapy [id number] SNOMED-CT () 2016-04-[address], [id number] Individual Psychotherapy [id number] SNOMED-CT () 2016-04-[address], [id number] [id number] Individual Psychotherapy [id number] SNOMED-CT () 2016-05-[address], [id number] Individual Psychotherapy [id number] SNOMED-CT () 2016-06-[address], [id number] [id number] Psychiatric Diagnostic Evaluation without medical serv ices [id number] SNOMED-CT () 2016-01-08 completed [address] [address], [id number] SNOMED-CT () 2019-09-[address], [id number] SNOMED-CT () 2020-05-[address], [id number] Encounters/Encounter Diagnoses Encounter Name Encounter Code Diagnosis Code Diagnosis Name Diagnosis CodeSystem Date of Diagnosis Service Delivery L ocation Pyschotherapy 30 Minute with Patient [id number] Post-traumatic stress disorder, unspecif ied SNOMED-CT 2020-09-[address], [id number] Vital Signs Code CodeSystem Vitals Date Value 80758-0 [facility] BMI 2019-03-28 38.06 (lb/in2) 8480-6 [facility] Blood Press ure-Systolic 2019-03-28 80 mm[HG] 26348-5 [facility] Weight 2019-03-28 243 [lb_av] 8462-4 [facility] Blood Press ure-Diastolic 2019-03-28 120 mm[HG] 8302-2 [facility] Height 2019-03-28 67 [in_i] 8867-4 [facility] Heart Rate 2019-03-28 97 /min Social History Element Description Description Start Date End Date Code CodeSystem AdditionalInfo SexAssignedAtBirth Male 1980 M AdministrativeGender Hospital Discharge Instructions * Reason For Referral Medical Equipment * FDA Assessments * Goals Section Goals Planned DateTime To decrease anxiety/depression symptoms 2016-02-05
--- OUTSIDE RECORDS SUMMARY | 2020-12-08 19:11 | CCD ---
Author Author [facility] Address Unknown Phone Unavailable Support Name Relationship Address Phone UN Next Of Kin Unknown Unavailable NONE, PATIENT PER Next Of Kin - - -, - - - Cintia LOPEZ Next Of Kin [address] [place] [address] - BECKY SEGURA Next Of Kin [address] [place] [address] ARGENTINA CASTRO Next Of Kin [address] [place] [address] DISABLED Next Of Kin Unknown Unavailable [place] [address] A DOGGIE DOO Next Of Kin [address] [place] [address] KAUSHAL FRANCE Next Of Kin [address] [place] [address] JOAN TOTO Next Of Kin [address] [place] [address] [phone] DOGGY DOO Next Of Kin [address] [place] [address] ASHLEY JIMÉNEZ Next Of Kin [address] [place] [address] SANDEE GUERRERO Next Of Kin [phone] [place] [address] MARIE GRANT Next Of Kin [phone] [place] [address] Unavailable NICE AND EASY Next Of Kin Unknown Unavailable KAREN MARTINI Next Of Kin [address] [place] [address] NICE N EASY Next Of Kin Unknown Unavailable ST Next Of Kin Unknown Unavailable WEEKS SR, A NE Next Of Kin [address] [place] [address] WEEKSHAO Next Of Kin [address] [facility] [place] [address] KINA [place] [address] CHELI CASTRO Next Of Kin [address] [place] [address] UE Next Of Kin Unknown Unavailable KAUSHAL GALAN Next Of Kin [address] [facility] [place] [address] becky segura ECON [address] [place] [address] Cheli Castro ECON Unknown Unavailable Care Team Providers Care Lead Assistant Manager Name Role Phone BRYDEN, A MARÍA ELENA DO Unavailable Unavailable BRYDEN, A MARÍA ELENA DO Unavailable Unavailable BRYDEN, A MARÍA ELENA DO Unavailable Unavailable BRYDEN, A MARÍA ELENA DO Unavailable Unavailable BRYDEN, A MARÍA ELENA DO Unavailable Unavailable BRYDEN, A MARÍA ELENA DO Unavailable Unavailable BRYDEN, A MARÍA ELENA DO Unavailable Unavailable BRYDEN, A MARÍA ELENA DO Unavailable Unavailable BRYDEN, A MARÍA ELENA DO Unavailable Unavailable BRYDEN, A MARÍA ELENA DO Unavailable Unavailable BRYDEN, A MARÍA ELENA DO Unavailable Unavailable BRYDEN, A MARÍA ELENA DO Unavailable Unavailable BRYDEN, A MARÍA ELENA DO Unavailable Unavailable BRYDEN, A MARÍA ELENA DO Unavailable Unavailable BRYDEN, A MARÍA ELENA DO Unavailable Unavailable BRYDEN, A MARÍA ELENA DO Unavailable Unavailable BRYDEN, A MARÍA ELENA DO Unavailable Unavailable BRYDEN, A MARÍA ELENA DO Unavailable Unavailable BRYDEN, A MARÍA ELENA DO Unavailable Unavailable BRYDEN, A MARÍA ELENA DO Unavailable Unavailable BRYDEN, A MARÍA ELENA DO Unavailable Unavailable BRYDEN, A MARÍA ELENA DO Unavailable Unavailable BRYDEN, A MARÍA ELENA DO Unavailable Unavailable BRYDEN, A MARÍA ELENA DO Unavailable Unavailable BRYDEN, A MARÍA ELENA DO Unavailable Unavailable BRYDEN, A MARÍA ELENA DO Unavailable Unavailable BRYDEN, A MARÍA ELENA DO Unavailable Unavailable BRYDEN, A MARÍA ELENA DO Unavailable Unavailable BRYDEN, A MARÍA ELENA DO Unavailable Unavailable Re-disclosure Warning The records that you are about to access may contain information from federally-assisted alcohol or drug abuse programs. If such information is present, then the following federally mandated warning applies: This information has been disclosed to you from records protected by federal confidentiality rules (42 CFR part 2). The federal rules prohibit you from making any further disclosure of this information unless further disclosure is expressly permitted by the written consent of the person to whom it pertains or as otherwise permitted by 42 CFR part 2. A general authorization for the release of medical or other information is NOT sufficient for this purpose. The Federal rules restrict any use of the information to criminally investigate or prosecute any alcohol or drug abuse patient.The records that you are about to access may contain highly sensitive health information, the redisclosure of which is protected by Article 27-F of the [facility] Public Health law. If you continue you may have access to information: Regarding HIV / AIDS; Provided by facilities licensed or operated by the [facility] Office of Mental Health; or Provided by the [facility] Office for People With Developmental Disabilities. If such information is present, then the following [facility] mandated warning applies: This information has been disclosed to you from confidential records which are protected by state law. State law prohibits you from making any further disclosure of this information without the specific written consent of the person to whom it pertains, or as otherwise permitted by law. Any unauthorized further disclosure in violation of state law may result in a fine or alf sentence or both. A general authorization for the release of medical or other information is NOT sufficient authorization for further disc losure. Family History Family Member Name Family Member Gender Family Member Status Date o f Status Description Data Source(s) Unknown Unknown Problem [facility] ([facility]) Encounters Encounter Providers Location Date Indications Data Source(s ) Pyschotherapy [facility] Min[facility] with [facility] 09/04/2020 12:00:[address] [facility] 08/27/2020 12:00:[address] [facility] ([facility]) Pyschotherapy 30 Minute with [facility] 07/10/2020 12:00:[address] [facility]) Telehealth Physchotherapy 30 Minutes with [facility] 06/13/2020 12:00:[address] [facility]) Outpatient Attender: MARÍA ELENA Brice/Alex/Abraham/Greg ndyusef 02/23/2020 01:00:00 PM EST [facility] ([facility] Outpatient Attender: MARÍA ELENA Sanchez/Abraham/Greg ndl 01/26/2020 08:10:00 AM EST [facility] ([facility], ) Outpatient Attender: MARÍA ELENA Brice/Alex/Abraham/Greg ndyusef 01/10/2020 09:20:00 AM EST [facility] ([facility], ) Medications Medication Brand Name Start Date Product Form Dose Route Admi nistrative Instructions Pharmacy Instructions Status Indications Reaction Description Data Source(s) 800-160 mg 10/27/2020 12:00:00 AM EDT tablet 20 TAKE ONE TABLET BY MOUTH TWICE A DAY FOR 10 DAYS TAKE ONE TABLET BY MOUTH TWICE A DAY FOR 10 DAYS SOLD: 10/29/2020 [facility] Cephalexin 500 MG Oral Capsule CEPHALEXIN 09/03/2020 12:00:00 AM EDT capsule 21 TAKE ONE CAPSULE BY MOUTH THREE TIMES A DAY FOR 7 DAYS TAKE ONE CAPSULE BY MOUTH THREE TIMES A DAY FOR 7 DAYS SOLD: 09/09/2020 [facility] 100 mg 08/27/2020 12:00:00 AM EDT tablet extended release 24 hr 30 TAKE ONE TABLET BY MOUTH EVERY DAY TAKE ONE TABLET BY MOUTH EVERY DAY SOLD: 09/09/2020 [facility] 24 HR Bupropion Hydrochloride 300 MG Extended Release Oral T ablet BUPROPION HCL 08/27/2020 12:00:00 AM EDT tablet extended release 24 hr 30 TAKE ONE TABLET BY MOUTH EVERY DAY TAKE ONE TABLET BY MOUTH EVERY DAY SOLD: 11/22/2020 [facility] 24 HR Bupropion Hydrochloride 300 MG Extended Release Oral T ablet BUPROPION HCL 08/27/2020 12:00:00 AM EDT tablet extended release 24 hr 30 TAKE ONE TABLET BY MOUTH EVERY DAY TAKE ONE TABLET BY MOUTH EVERY DAY SOLD: 09/09/2020 [facility] quetiapine 50 MG Oral Tablet [Seroquel] Seroquel 05/28/2020 12: 00:00 AM EDT 50 mg oral completed Seroquel [facility] ([facility]) 24 HR Bupropion Hydrochloride 300 MG Extended Release Oral Tablet [Wellbutrin] Wellbutrin XL 05/28/2020 12:00:00 AM EDT 300 mg oral comp leted Wellbutrin XL [facility] ([facility]) quetiapine 50 MG Oral Tablet [Seroquel] Seroquel 05/28/2020 12: 00:00 AM EDT 50 mg oral completed Seroquel [facility] ([facility] 24 HR Bupropion Hydrochloride 300 MG Extended Release Oral Tablet [Wellbutrin] Wellbutrin XL 05/28/2020 12:00:00 AM EDT 300 mg oral comp leted Wellbutrin XL [facility] ([facility]) 24 HR Desvenlafaxine 100 MG Extended Release Oral Tablet [Pr istiq] Pristiq 05/28/2020 12:00:00 AM EDT 100 mg oral completed Pristiq [facility] ([facility]) quetiapine 200 MG Oral Tablet [Seroquel] Seroquel 05/28/2020 12 :00:00 AM EDT 200 mg oral completed Seroquel [facility] ([facility]) quetiapine 200 MG Oral Tablet [Seroquel] Seroquel 05/28/2020 12 :00:00 AM EDT 200 mg oral completed Seroquel [facility] ([facility] 24 HR Desvenlafaxine 100 MG Extended Release Oral Tablet [Pr istiq] Pristiq 05/28/2020 12:00:00 AM EDT 100 mg oral completed Pristiq [facility] ([facility]) 100 mg 05/17/2020 12:00:00 AM EDT capsule 30 TAKE ONE CAPSULE BY MOUTH THREE TIMES A DAY TAKE ONE CAPSULE BY MOUTH THREE TIMES A DAY SOLD: 05/17/2020 [facility] 5-325 mg 03/01/2020 12:00:00 AM EST tablet 20 TAKE ONE TABLET BY MOUTH EVERY 6 HOURS NEEDED FOR PAIN AFTER SURGERY , MAXIMUM DAILY DOSE = 4 TABLETS TAKE ONE TABLET BY MOUTH EVERY 6 HOURS NEEDED FOR PAIN AFTER SURGERY , MAXIMUM DAILY DOSE = 4 TABLETS SOLD: 03/05/2020 [facility] Acetaminophen 325 MG / Hydrocodone Bitartrate 5 MG Oral Tabl et [Amity] Amity 02/27/2020 12:00:00 AM EST ORAL completed [facility] ([facility], ) 100 mg 02/23/2020 12:00:00 AM EST tablet extended release 24 hr 30 TAKE ONE TABLET BY MOUTH EVERY DAY TAKE ONE TABLET BY MOUTH EVERY DAY SOLD: 11/22/2020 [facility] 100 mg 02/23/2020 12:00:00 AM EST tablet extended release 24 hr 30 TAKE ONE TABLET BY MOUTH EVERY DAY TAKE ONE TABLET BY MOUTH EVERY DAY SOLD: 03/05/2020 [facility] quetiapine 200 MG Oral Tablet QUETIAPINE FUMARATE 02/23/2020 12: 00:00 AM EST tablet 30 TAKE ONE TABLET BY MOUTH EVERY D AY AT BEDTIME TAKE ONE TABLET BY MOUTH EVERY DAY AT BEDTIME SOLD: 11/22/2020 [facility] 24 HR Bupropion Hydrochloride 300 MG Extended Release Oral T ablet BUPROPION HCL 02/23/2020 12:00:00 AM EST tablet extended release 24 hr 30 TAKE ONE TABLET BY MOUTH EVERY MORNING TAKE ONE TABLET BY MOUTH EVERY MORNING SOLD: 04/10/2020 [facility] quetiapine 50 MG Oral Tablet QUETIAPINE FUMARATE 02/23/2020 12:0 0:00 AM EST tablet 30 TAKE ONE TABLET BY MOUTH EVERY D AY AT BEDTIME TAKE ONE TABLET BY MOUTH EVERY DAY AT BEDTIME SOLD: 03/05/2020 [facility] quetiapine 50 MG Oral Tablet QUETIAPINE FUMARATE 02/23/2020 12:0 0:00 AM EST tablet 30 TAKE ONE TABLET BY MOUTH EVERY D AY AT BEDTIME TAKE ONE TABLET BY MOUTH EVERY DAY AT BEDTIME SOLD: 04/10/2020 [facility] 24 HR Bupropion Hydrochloride 300 MG Extended Release Oral T ablet BUPROPION HCL 02/23/2020 12:00:00 AM EST tablet extended release 24 hr 30 TAKE ONE TABLET BY MOUTH EVERY MORNING TAKE ONE TABLET BY MOUTH EVERY MORNING SOLD: 03/05/2020 [facility] quetiapine 200 MG Oral Tablet QUETIAPINE FUMARATE 02/23/2020 12: 00:00 AM EST tablet 30 TAKE ONE TABLET BY MOUTH EVERY D AY AT BEDTIME TAKE ONE TABLET BY MOUTH EVERY DAY AT BEDTIME SOLD: 04/10/2020 [facility] 100 mg 02/23/2020 12:00:00 AM EST tablet extended release 24 hr 30 TAKE ONE TABLET BY MOUTH EVERY DAY TAKE ONE TABLET BY MOUTH EVERY DAY SOLD: 04/10/2020 [facility] quetiapine 200 MG Oral Tablet QUETIAPINE FUMARATE 02/23/2020 12: 00:00 AM EST tablet 30 TAKE ONE TABLET BY MOUTH EVERY D AY AT BEDTIME TAKE ONE TABLET BY MOUTH EVERY DAY AT BEDTIME SOLD: 03/05/2020 [facility] quetiapine 50 MG Oral Tablet [Seroquel] Seroquel 02/22/2020 12: 00:00 AM EST 50 mg oral completed Seroquel [facility] ([facility]) quetiapine 50 MG Oral Tablet [Seroquel] Seroquel 02/22/2020 12: 00:00 AM EST 50 mg oral completed Seroquel [facility] ([facility]) quetiapine 200 MG Oral Tablet QUETIAPINE FUMARATE 01/10/2020 12: 00:00 AM EST tablet 30 TAKE ONE TABLET BY MOUTH AT BEDT YARITZA TAKE ONE TABLET BY MOUTH AT BEDTIME SOLD: 01/15/2020 [facility] Sulfamethoxazole 800 MG / Trimethoprim 160 MG Oral Tab let 800-160 mg SULFAMETHOXAZOLE/TRIMETHOPRIM 01/10/2020 12:00:00 AM EST tablet 14 TAKE ONE TABLET BY MOUTH TWICE A DAY TAKE ONE TABLET BY MOUTH TWICE A DAY SOLD: 01/15/2020 [facility] Sulfamethoxazole 800 MG / Trimethoprim 160 MG Oral Tablet [B actrim] Bactrim DS 01/10/2020 12:00:00 AM EST ORAL completed [facility] ) 24 HR Bupropion Hydrochloride 300 MG Extended Release Oral Tablet [Wellbutrin] Wellbutrin XL 01/09/2020 12:00:00 AM EST 300 mg oral comp leted Wellbutrin XL [facility] ([facility]) 24 HR Bupropion Hydrochloride 300 MG Extended Release Oral Tablet [Wellbutrin] Wellbutrin XL 01/09/2020 12:00:00 AM EST 300 mg oral comp leted Wellbutrin XL [facility] ([facility]) 24 HR Bupropion Hydrochloride 300 MG Extended Release Oral T ablet BUPROPION HCL 01/09/2020 12:00:00 AM EST tablet extended release 24 hr 30 TAKE ONE TABLET BY MOUTH EVERY MORNING TAKE ONE TABLET BY MOUTH EVERY MORNING SOLD: 01/10/2020 [facility] 800 mg 12/15/2019 12:00:00 AM EDT tablet 21 TAKE ONE TABLET BY MOUTH THREE TIMES A DAY FOR 7 DAYS TAKE ONE TABLET BY MOUTH THREE TIMES A DAY FOR 7 DAYS SOLD: 12/16/2019 [facility] 100 mg 12/15/2019 12:00:00 AM EDT capsule 20 TAKE ONE CAPSULE BY MOUTH TWICE A DAY FOR 10 DAYS TAKE ONE CAPSULE BY MOUTH TWICE A DAY FOR 10 DAYS SOLD : 12/16/2019 [facility] 24 HR Bupropion Hydrochloride 150 MG Extended Release Oral T ablet BUPROPION HCL 11/30/2019 12:00:00 AM EDT tablet extended release 24 hr 30 TAKE ONE TABLET BY MOUTH EVERY MORNING TAKE ONE TABLET BY MOUTH EVERY MORNING SOLD: 01/10/2020 [facility] 24 HR Desvenlafaxine 100 MG Extended Release Oral Tablet [Pr istiq] Pristiq 11/30/2019 12:00:00 AM EDT 100 mg oral completed Pristiq [facility] ([facility]) 24 HR Bupropion Hydrochloride 150 MG Extended Release Oral T ablet BUPROPION HCL 11/30/2019 12:00:00 AM EDT tablet extended release 24 hr 30 TAKE ONE TABLET BY MOUTH EVERY MORNING TAKE ONE TABLET BY MOUTH EVERY MORNING SOLD: 11/30/2019 [facility] 100 mg 11/30/2019 12:00:00 AM EDT tablet extended release 24 hr 30 TAKE ONE TABLET BY MOUTH EVERY DAY TAKE ONE TABLET BY MOUTH EVERY DAY SOLD: 11/30/2019 [facility] 24 HR Desvenlafaxine 100 MG Extended Release Oral Tablet [Pr istiq] Pristiq 11/30/2019 12:00:00 AM EDT 100 mg oral completed Pristiq [facility] ([facility]) quetiapine 200 MG Oral Tablet QUETIAPINE FUMARATE 11/30/2019 12: 00:00 AM EDT tablet 30 TAKE ONE TABLET BY MOUTH EVERY D AY AT BEDTIME TAKE ONE TABLET BY MOUTH EVERY DAY AT BEDTIME SOLD: 11/30/2019 [facility] 24 HR Bupropion Hydrochloride 150 MG Extended Release Oral Tablet [Wellbutrin] Wellbutrin XL 11/30/2019 12:00:00 AM EDT 150 mg oral comp leted Wellbutrin XL [facility] ([facility]) 24 HR Bupropion Hydrochloride 150 MG Extended Release Oral Tablet [Wellbutrin] Wellbutrin XL 11/30/2019 12:00:00 AM EDT 150 mg oral comp leted Wellbutrin XL [facility] ([facility]) 75 mg 10/28/2019 12:00:00 AM EDT tablet 30 TAKE ONE TABLET BY MOUTH EVERY DAY TAKE ONE TABLET BY MOUTH EVERY DAY SOLD: 10/31/2019 [facility] Bupropion Hydrochloride 75 MG Oral Tablet bupropion HCl 10/27/2019 12:00:00 AM EDT 75 mg oral completed bupropion HCl [facility] ([facility]) Bupropion Hydrochloride 75 MG Oral Tablet bupropion HCl 10/27/2019 12:00:00 AM EDT 75 mg oral completed bupropion HCl [facility] ([facility]) 24 HR Desvenlafaxine 100 MG Extended Release Oral Tablet [Pr istiq] Pristiq 09/09/2019 12:00:00 AM EDT 100 mg oral completed Pristiq [facility] ([facility]) 24 HR Desvenlafaxine 100 MG Extended Release Oral Tablet [Pr istiq] Pristiq 09/09/2019 12:00:00 AM EDT 100 mg oral completed Pristiq [facility] ([facility]) 24 HR Desvenlafaxine 50 MG Extended Release Oral Tablet [Elizabeth stiq] Pristiq 09/09/2019 12:00:00 AM EDT 50 mg oral completed Pristiq [facility] ([facility]) 24 HR Desvenlafaxine 50 MG Extended Release Oral Tablet [Elizabeth stiq] Pristiq 09/09/2019 12:00:00 AM EDT 50 mg oral completed Pristiq [facility] ([facility]) 2 % 08/31/2019 12:00:00 AM EDT cream 30 APPLY TO FEET TWO TIMES A DAY FOR 8 WEEKS APPLY TO FEET TWO TIMES A DAY FOR 8 WEEKS SOLD: 10/31/2019 [facility] quetiapine 200 MG Oral Tablet [Seroquel] Seroquel 08/01/2019 12 :00:00 AM EDT 200 mg oral completed Seroquel [facility] ([facility]) quetiapine 200 MG Oral Tablet [Seroquel] Seroquel 08/01/2019 12 :00:00 AM EDT 200 mg oral completed Seroquel [facility] ([facility]) Insurance Providers Payer name Policy type / Coverage type Policy ID Covered libertarian ID Covered libertarian's relationship to ochoa Policy Ochoa Plan Information [employer] [id number] [place] [id number] Ghi/Emblem HLTH (pr) Medigap Part B [id number] Ghi/Emblem HLTH (pr) Medigap Part B [id number] BS Roya Hmo Blue Option Medigap Part B [id number] Self BS Roya Hmo Blue Option Medigap Part B [id number] Self [id number] [facility] Plan Medigap Part B [id number] Self [id number] [facility] Plan Commercial [id number] Self UHC I [id number] Self [id number] MEDICAID M [id number] Self [id number] UN[employer] COMMUNITY PLAN MCDHMO [id number] SP [id number] [facility] MEDICAID [id number] Nori [id number] [employer]HC COMMUNITY PLAN MCDHMO [id number] SP [id number] [facility] Roya/MCR Health Maintenance Organization (HMO) [id number] Self [id number] [facility] Roya/[facility] Health Maintenance Organization (HMO) [id number] Self [id number] [facility]a/[facility] Health Maintenance Organization (HMO) [id number] Self [id number] [facility] Health Maintenance Organization (HMO) [id number] Self [id number] [facility] Health Maintenance Organization (HMO) [id number] Self [id number] [facility] Health Maintenance Organization (HMO) [id number] Self [id number] [employer] COMMUNITY PLAN MCDHMO [id number] SP [id number] Medicaid [place] Medicaid [id number] Self [id number] [facility] Health Maintenance Organization (HMO) [id number] Self [id number] [employer] COMMUNITY PLAN MCDHMO [id number] SP [id number] Medicaid [place] Medicaid [id number] Self [facility](MCAID) O [id number] S [id number] [employer] COMMUNITY PLAN MCDHMO [id number] SP [id number] MEDICAID P [id number] S [id number] MEDICAID [id number] SP [id number] [employer] PLAN [id number] SP [id number] SELF PAY UNAVAILABLE SP UNAVAILA [facility] HEALTH INSURANCE [id number] DC [id number] [facility] CLM#[id number] [facility] CLM#[id number] [employer] BCBS P [id number] S [id number] UNHC COMMUNITY PLAN MCDHMO [id number] SP [id number] [facility](MCAID) O [id number] S [id number] ANSI-Medicaid [id number] ANSI-Medicaid [id number] ANSI-Medicaid [id number] [facility] MEDICAID PI PI [facility] Health Maintenance Organization (O) [id number] Self [id number] [facility] Commercial [id number] Self [id number] [facility] Health Maintenance Organization (HMO) [id number] Self [id number] [facility] [id number] SP [id number] [facility] Health Maintenance Organization (HMO) [id number] Self [id number] [facility] Health Maintenance Organization (O) [id number] Self [id number] Problems, Conditions, and Diagnoses No Information Surgeries/Procedures Procedure Description Date Indications Data Source(s) Individual psychotherapy (regime/therapy) 09/04/2020 1 2:00:00 AM [facility] Evaluation AND/OR management - established patient (procedur e) 08/27/2020 12:00:[address] [facility] ([facility]) Evaluation AND/OR management - established patient (procedur e) 08/27/2020 12:00:[address] [facility] ([facility]) Individual psychotherapy (regime/therapy) 07/10/2020 1 2:00:00 AM [facility]) Individual psychotherapy (regime/therapy) 07/10/2020 1 2:00:00 AM EDT [facility]) Individual psychotherapy (regime/therapy) 07/10/2020 1 2:00:00 AM EDT [facility]) Individual psychotherapy (regime/therapy) 07/10/2020 1 2:00:00 AM [facility]) Individual psychotherapy (regime/therapy) 07/10/2020 1 2:00:00 AM EDT [facility]) Individual psychotherapy (regime/therapy) 07/10/2020 1 2:00:00 AM EDT [facility] ([facility]) Individual psychotherapy (regime/therapy) 06/13/2020 1 2:00:00 AM EDT [facility] ([facility]) Individual psychotherapy (regime/therapy) 06/13/2020 1 2:00:00 AM EDT [facility] ([facility]) Individual psychotherapy (regime/therapy) 06/13/2020 1 2:00:00 AM EDT [facility] ([facility]) Individual psychotherapy (regime/therapy) 06/13/2020 1 2:00:00 AM EDT [facility] ([facility]) Evaluation AND/OR management - established patient (procedur e) 05/28/2020 12:00:[facility] Evaluation AND/OR management - established patient (procedur e) 05/28/2020 12:00:00 AM EDT [facility] ([facility] Living Services) Evaluation AND/OR management - established patient (procedur e) 05/28/2020 12:00:00 AM EDT [employer] ([facility]) Evaluation AND/OR management - established patient (procedur e) 05/28/2020 12:00:00 AM EDT [facility] ([facility]) Individual psychotherapy (regime/therapy) 04/18/2020 1 2:00:00 AM EST [employer] ([facility]) Individual psychotherapy (regime/therapy) 04/18/2020 1 2:00:00 AM EST [facility] ([facility]) Individual psychotherapy (regime/therapy) 04/18/2020 1 2:00:00 AM EST [facility] ([facility]) Individual psychotherapy (regime/therapy) 04/18/2020 1 2:00:00 AM EST [employer] ([facility]) Individual psychotherapy (regime/therapy) 03/28/2020 1 2:00:00 AM EST [facility] ([facility]) Individual psychotherapy (regime/therapy) 03/28/2020 1 2:00:00 AM EST [facility] ([facility]) Individual psychotherapy (regime/therapy) 03/28/2020 1 2:00:00 AM EST [employer] ([facility]) Individual psychotherapy (regime/therapy) 03/28/2020 1 2:00:00 AM EST [facility] ([facility]) Individual psychotherapy (regime/therapy) 03/12/2020 1 2:00:00 AM EST [facility] ([facility]) Individual psychotherapy (regime/therapy) 03/12/2020 1 2:00:00 AM EST [employer] ([facility]) Individual psychotherapy (regime/therapy) 03/12/2020 1 2:00:00 AM EST [facility] ([facility]) Individual psychotherapy (regime/therapy) 03/12/2020 1 2:00:00 AM EST [facility] ([facility]) Individual psychotherapy (regime/therapy) 03/12/2020 1 2:00:00 AM EST [facility] ([facility]) Individual psychotherapy (regime/therapy) 03/12/2020 1 2:00:00 AM EST [facility] ([facility]) Individual psychotherapy (regime/therapy) 03/12/2020 1 2:00:00 AM EST [facility] ([facility]) Individual psychotherapy (regime/therapy) 03/12/2020 1 2:00:00 AM EST [facility] ([facility]) Excise Pilonidal Cyst Or Sinus Extensive 03/05/2020 12 :00:00 AM EST [facility] ) Evaluation AND/OR management - established patient (procedur e) 02/22/2020 12:00:00 AM EST [facility] ([facility]) Evaluation AND/OR management - established patient (procedur e) 02/22/2020 12:00:00 AM EST [employer] ([facility]) Evaluation AND/OR management - established patient (procedur e) 02/22/2020 12:00:00 AM EST [facility] ([facility]) Evaluation AND/OR management - established patient (procedur e) 02/22/2020 12:00:00 AM EST [facility]) Incisional Biopsy Of Skin 02/02/2020 12:00:00 AM EST [facility] ([facility], ) Individual psychotherapy (regime/therapy) 01/10/2020 1 2:00:00 AM EST [facility] ([facility]) Individual psychotherapy (regime/therapy) 01/10/2020 1 2:00:00 AM EST [facility] ([facility]) Individual psychotherapy (regime/therapy) 01/10/2020 1 2:00:00 AM EST [facility] ([facility]) Individual psychotherapy (regime/therapy) 01/10/2020 1 2:00:00 AM EST [facility] ([facility]) X-Ray Sacrum & Coccyx Two Views 12/16/2019 12:00:00 AM EDT [facility] ([facility] ) Individual psychotherapy (regime/therapy) 12/14/2019 1 2:00:00 AM EDT [facility] ([facility]) Individual psychotherapy (regime/therapy) 12/14/2019 1 2:00:00 AM EDT [facility] ([facility]) Individual psychotherapy (regime/therapy) 12/14/2019 1 2:00:00 AM EDT [facility] ([facility]) Individual psychotherapy (regime/therapy) 12/14/2019 1 2:00:00 AM EDT [facility] ([facility]) Evaluation AND/OR management - established patient (procedur e) 11/30/2019 12:00:00 AM EDT [facility] ([facility]) Evaluation AND/OR management - established patient (procedur e) 11/30/2019 12:00:00 AM EDT [facility] ([facility]) Evaluation AND/OR management - established patient (procedur e) 11/30/2019 12:00:00 AM EDT [facility] ([facility]) Evaluation AND/OR management - established patient (procedur e) 11/30/2019 12:00:00 AM EDT [facility] ([facility]) Individual psychotherapy (regime/therapy) 11/24/2019 1 2:00:00 AM EDT [facility] ([facility]) Individual psychotherapy (regime/therapy) 11/24/2019 1 2:00:[address] [facility]) Individual psychotherapy (regime/therapy) 11/24/2019 1 2:00:[address] [facility]) Individual psychotherapy (regime/therapy) 11/24/2019 1 2:00:[address] [facility]) Individual psychotherapy (regime/therapy) 10/27/2019 1 2:00:[address] [facility]) Individual psychotherapy (regime/therapy) 10/27/2019 1 2:00:[address] [facility]) Individual psychotherapy (regime/therapy) 10/27/2019 1 2:00:[address] [facility]) Individual psychotherapy (regime/therapy) 10/27/2019 1 2:00:[address] [facility]) Results ID Date Data Source [id number] 10/29/2020 02:19:00 AM EDT [facility] Name Value Range Interpretation Code Description Data Luiza rce(s) Supporting Document(s) SARS coronavirus 2 RNA [Presence] in Res piratory specimen by JOSE with probe detection NEGATIVE [facility] This lab was ordered by [facility] a nd reported by [facility]. ID Date Data Source [id number] 03/05/2020 09:30:00 AM EST [facility] ([facility], ) Name Value Range Interpretation Code Description Data Luiza rce(s) Supporting Document(s) Surgical pathology study Laboratory test result [facility] ([facility], ) FINAL DIAGNOSIS Pilonidal cyst, excision: Pilonidal cyst with associated acute and chronic inflammation and reactive changes in the surrounding subcutaneous tissue. 03/06/2020 - 1122 CLINICAL DIAGNOSIS Pilonidal cyst 03/05/2020 - 1301 GROSS DIAGNOSIS Received in formalin labeled "pilonidal cyst" is an approximately 12 x 5 x maximally 3 cm. portion of skin with underlying subcutaneous fat. A central furrow is noted. Sectioning reveals a large cystic area in subcutaneous tissue. Order Puller in one. - 03/05/2020 - 1301 Signed Helena Valadez MD 03/06/2020 [id number] ID Date Data Source [id number] 02/29/2020 10:00:00 AM EST [facility] Name Value Range Interpretation Code Description Data Luiza rce(s) Supporting Document(s) SARS coronavirus 2 RNA Not Detected [facility] This lab was ordered by [facility] and reported by [facility]. ID Date Data Source [id number] 02/02/2020 03:42:00 PM EST [facility] Name Value Range Interpretation Code Description Data Luiza rce(s) Supporting Document(s) Surgical pathology study Laboratory test result [facility] ([facility]) FINAL DIAGNOSIS Skin, coccyx, incision and drainage: Fragments of skin with predominantly chronic inflammation and scar. 02/06/2020 - 1143 CLINICAL DIAGNOSIS Lesion, pilonidal cyst with abscess 02/03/2020 - 1423 GROSS DIAGNOSIS Received in formalin labeled "coccyx" and consists of multiple fragments of lares-white tissue measuring 1.2 x 0.3 x 0.3 cm in aggregate. All in one. -SV 02/03/2020 - 1423 Signed TONY SINGH MD 02/06/2020 1343 Procedure Social History No Information Vital Signs ID Date Data Source UNK Name Value Range Interpretation Code Description Data Source(s) Body weight 266.38 [lb_av] 266.38 [lb_av] [facility] ([facility]) Systolic blood pressure 154 mm[Hg] 154 mm[Hg] [facility] ([facility]) Diastolic blood pressure 84 mm[Hg] 84 mm[Hg] [facility] ([facility]) Body height 67 [in_i] 67 [in_i] [facility] ([facility]) 5'7" [place] body weight 148 [lb_av] 148 [lb_av] [facility] Body weight 120.828 kg 120.828 kg [facility] ([facility]) Body surface area Derived from formula 2.28 m2 2.28 m2 [facility] ([facility]) Body mass index (BMI) [Ratio] 41.7 kg/m2 41.7 k g/m2 [facility] ([facility]) Heart rate 86 /min 86 /min [facility] ([facility]) Body height 67 [in_i] 67 [in_i] [facility] ([facility]) 5'7" Body weight 265.00 [lb_av] 265.00 [lb_av] [facility] ([facility]) Body mass index (BMI) [Ratio] 41.5 kg/m2 41.5 k g/m2 [facility] ([facility]) [place] body weight 148 [lb_av] 148 [lb_av] [facility] ([facility]) Body weight 120.204 kg 120.204 kg [facility] ([facility]) Body surface area Derived from formula 2.28 m2 2.28 m2 [facility] ([facility]) Systolic blood pressure 137 mm[Hg] 137 mm[Hg] [facility] ([facility]) Diastolic blood pressure 87 mm[Hg] 87 mm[Hg] [facility] ([facility]) Systolic blood pressure 147 mm[Hg] 147 mm[Hg] [facility] ([facility]) Diastolic blood pressure 96 mm[Hg] 96 mm[Hg] [facility] ([facility]) Heart rate 106 /min 106 /min [facility] ([facility]) Body height 67 [in_i] 67 [in_i] [facility] ([facility]) 5'7" Body weight 262.12 [lb_av] 262.12 [lb_av] [facility] ([facility]) Body mass index (BMI) [Ratio] 41.1 kg/m2 41.1 k g/m2 [facility] ([facility]) [place] body weight 148 [lb_av] 148 [lb_av] [facility] ([facility]) Body weight 118.900 kg 118.900 kg [facility] ([facility]) Body surface area Derived from formula 2.27 m2 2.27 m2 [facility] ([facility]) Systolic blood pressure 126 mm[Hg] 126 mm[Hg] [facility] Body weight 261.50 [lb_av] 261.50 [lb_av] [facility] ([facility]) Diastolic blood pressure 68 mm[Hg] 68 mm[Hg] [facility] ([facility]) Body mass index (BMI) [Ratio] 41.0 kg/m2 41.0 k g/m2 [facility] ([facility]) [place] body weight 148 [lb_av] 148 [lb_av] [facility] ([facility]) Body weight 118.616 kg 118.616 kg [facility] ([facility]) Body height 67 [in_i] 67 [in_i] [facility] ([facility]) 5'7" Body surface area Derived from formula 2.27 m2 2.27 m2 [facility] ([facility]) Systolic blood pressure 124 mm[Hg] 124 mm[Hg] M [facility] ([facility]) Diastolic blood pressure 78 mm[Hg] 78 mm[Hg] [facility] ([facility]) Body height 67 [in_i] 67 [in_i] [facility] ([facility]) 5'7" Body weight 255.38 [lb_av] 255.38 [lb_av] [facility] ([facility]) Body mass index (BMI) [Ratio] 40.0 kg/m2 40.0 k g/m2 [facility] ([facility]) [place] body weight 148 [lb_av] 148 [lb_av] [facility] ([facility]) Body weight 115.838 [facility].838 [facility] Body surface area Derived from formula 2.24 m2 2.24 m2 [facility] ([facility]) Body height 67.75 [in_i] 67.75 [in_i] [facility] ([facility] 5'7.75" Body weight 245.38 [lb_av] 245.38 [lb_av] [facility] ([facility] ) Body mass index (BMI) [Ratio] 37.6 kg/m2 37.6 k g/m2 [facility] ([facility]) Body temperature 97.1 [degF] 97.1 [degF] [facility] ([facility]) Patient Treatment Plan of Care Planned Activity Planned Date Details Description Data Source (s) 24 HR Bupropion Hydrochloride 300 MG Extended Release Oral Tablet [Wellbutrin] 05/28/2020 12:00:[address] [facility] ([facility]) quetiapine 50 MG Oral Tablet [Seroquel] 05/28/2020 12:00:[address] [facility] ([facility]) quetiapine 200 MG Oral Tablet [Seroquel] 05/28/2020 12:00:[address] [facility] ([facility]) 24 HR Desvenlafaxine 100 MG Extended Release Oral Tabl et [Pristiq] 05/28/2020 12:00:[address] [facility] ([facility]) quetiapine 200 MG Oral Tablet [Seroquel] 05/28/2020 12:00:[address] [facility] ([facility]) quetiapine 50 MG Oral Tablet [Seroquel] 05/28/2020 12:00:[address] [facility] ([facility]) 24 HR Desvenlafaxine 100 MG Extended Release Oral Tabl et [Pristiq] 05/28/2020 12:00:[address] [facility] ([facility]) 24 HR Bupropion Hydrochloride 300 MG Extended Release Oral Tablet [Wellbutrin] 05/28/2020 12:00:[address] [facility] ([facility]) quetiapine 50 MG Oral Tablet [Seroquel] 02/22/2020 12:00:[address] [facility] ([facility]) quetiapine 50 MG Oral Tablet [Seroquel] 02/22/2020 12:00:[address] [facility] ([facility]) 24 HR Bupropion Hydrochloride 300 MG Extended Release Oral Tablet [Wellbutrin] 01/09/2020 12:00:00 [facility] 24 HR Bupropion Hydrochloride 300 MG Extended Release Oral Tablet [Wellbutrin] 01/09/2020 12:00:00 [facility] 24 HR Desvenlafaxine 100 MG Extended Release Oral Tabl et [Pristiq] 11/30/2019 12:00:00 [facility] 24 HR Bupropion Hydrochloride 150 MG Extended Release Oral Tablet [Wellbutrin] 11/30/2019 12:00:00 [facility] HR Desvenlafaxine 100 MG Extended Release Oral Tabl et [Pristiq] 11/30/2019 12:00:00 AM [facility] 24 HR Bupropion Hydrochloride 150 MG Extended Release Oral Tablet [Wellbutrin] 11/30/2019 12:00:00 AM [facility]) Bupropion Hydrochloride 75 MG Oral Tablet 10/27/2019 12:00:[address] [facility] ([facility]) Bupropion Hydrochloride 75 MG Oral Tablet 10/27/2019 12:00:[address] [facility] ([facility]) 24 HR Desvenlafaxine 50 MG Extended Release Oral Table t [Pristiq] 09/09/2019 12:00:[facility] 24 HR Desvenlafaxine 100 MG Extended Release Oral Tabl et [Pristiq] 09/09/2019 12:00:00 [facility] 24 HR Desvenlafaxine 100 MG Extended Release Oral Tabl et [Pristiq] 09/09/2019 12:00:00 [facility] 24 HR Desvenlafaxine 50 MG Extended Release Oral Table t [Pristiq] 09/09/2019 12:00:[address] [facility] ([facility]) quetiapine 200 MG Oral Tablet [Seroquel] 08/01/2019 12:00:[address] [facility] ([facility]) quetiapine 200 MG Oral Tablet [Seroquel] 08/01/2019 12:00:[address] [facility] ([facility])
[2020-12-08] MEDS ORDERED: QUET200T2 PO (19:18)
[2020-12-08] MEDS ORDERED: KETOROLAC 30 MG/ML 1ML VIAL IV ONE (23:40)
[2020-12-08] MEDS ORDERED: NS 1,000 ML IV ONE (23:40)
[2020-12-08] MEDS ORDERED: ONDANSETRON 4MG/2ML VIAL IV ONE (23:40)
[2020-12-09 00:33] LABS: BASO % 0.5 % (0.0-1.0); EOS # 0.2 10^3/uL (0.0-0.5); EOS % 3.9 % (0.0-3.0); HEMATOCRIT 42.2 % (42.0-52.0); HEMOGLOBIN 14.5 g/dl (13.5-17.5); LYMPH # 1.7 10^3/uL (1.5-5.0); LYMPH % 41.5 % (24.0-44.0); MEAN CORPUSCULAR HEMOGLOBIN 30.9 pg (27.0-33.0); MEAN CORPUSCULAR HGB CONC 34.4 g/dl (32.0-36.5); MONO # 0.5 10^3/uL (0.0-0.8); MONO % 11.2 % (2.0-8.0); NEUTROPHILS # 1.7 10^3/uL (1.5-8.5); NEUTROPHILS % 42.4 % (36.0-66.0); PLATELET COUNT, AUTOMATED 164 10^3/uL (150-450); RED BLOOD COUNT 4.69 10^6/uL (4.30-6.10); WHITE BLOOD COUNT 4.1 10^3/uL (4.0-10.0)
[2020-12-09 00:52] LABS: BLOOD UREA NITROGEN 13 MG/DL (7-18); CALCIUM LEVEL 8.2 MG/DL (8.5-10.1); CARBON DIOXIDE LEVEL 27 MEQ/L (21-32); CHLORIDE LEVEL 108 MEQ/L (98-107); CREATININE FOR GFR 0.88 MG/DL (0.70-1.30); GLOMERULAR FILTRATION RATE > 60.0 (>60); GLUCOSE, FASTING 82 MG/DL (70-100); POTASSIUM SERUM 3.7 MEQ/L (3.5-5.1); SODIUM LEVEL 141 MEQ/L (136-145)
--- OUTSIDE RECORDS SUMMARY | 2020-12-09 00:53 | CCD ---
Author Author [facility] Organization [facility] Address Unknown Phone Unavailable Support Name Relationship Address Phone UN Next Of Kin Unknown Unavailable NONE, PATIENT PER Next Of Kin - - -, - - - Cintia LOPEZ Next Of Kin [address] [place] [address] - BECKY SEGURA Next Of Kin [address] [place] [address] ARGENTINA CASTRO Next Of Kin [address] [place] [address] DISABLED Next Of Kin Unknown Unavailable DISABILITY [place] [address] A DOGGIE DOO Next Of Kin [address] [place] [address] KAUSHAL FRANCE Next Of Kin [address] [place] [address] JOAN OTTO Next Of Kin [address] [place] [phone] DOGGY DOO Next Of Kin [address] [place] [address] ASHLEY JIMÉNEZ Next Of Kin [address] [place] [address] SANDEE GUERRERO Next Of Kin [address] [place] [address] MARIE GRANT Next Of Kin [id number] [place] [address] Unavailable NICE AND EASY Next Of Kin Unknown Unavailable KAREN MARTINI Next Of Kin [address] [place] [address] NICE N EASY Next Of Kin Unknown Unavailable ST Next Of Kin Unknown Unavailable WEEKS SR, A NE Next Of Kin [address] [place] [address] WEEKS, HAO Next Of Kin [address] [place] [address] [employer] [address] CHEIL CASTRO Next Of Kin [address] [place] [address] UE Next Of Kin Unknown Unavailable KAUSHAL GALAN Next Of Kin [address] [place] [address] becky segura ECON [address] [place] [address] Cheli Castro ECON Unknown Unavailable Care Team Providers Care Behavioral Health Consultant Name Role Phone BRYDEN, A MARÍA ELENA [...] is protected by Article 27-F of the [facility] Public Health law. If you continue you may have access to information: Regarding HIV / AIDS; Provided by facilities licensed or operated by the [facility] Office of Mental Health; or Provided by the [facility] Office for People With Developmental Disabilities. If such information is present, then the following [facility] mandated warning applies: This information [...] law may result in a fine or snf sentence or both. A general authorization for [...] Behavioral Health Clinic 09/04/2020 12:00:00 AM EDT [facility] ([facility]ounts include [facility] beds [facility]) Outpatient [facility] 08/27/2020 12:00:00 AM EDT [facility]) Pyschotherapy 30 Minute with Patient [facility] 07/10/2020 12:00:00 AM EDT [facility] ([facility] nscounts include 234 beds at the [facility]) Telehealth Physchotherapy 30 Minutes with Patient [facility] 06/13/2020 12:00:00 AM EDT [facility] ([facility] anscounts include 234 beds at the [facility]) Outpatient Attender: MARÍA ELENA Brice/Alex/Abraham/Grge ndyusef 02/23/2020 01:00:00 PM EST [facility] ([facility]) Outpatient Attender: MARÍA ELENA Sanchez/Abraham/Greg ndl 01/26/2020 08:10:00 AM EST [facility] ([facility], ) Outpatient Attender: MARÍA ELENA Brice/Arianna/Greg ndyusef 01/10/2020 09:20:00 AM EST [facility] ([facility], ) Medications Medication Brand Name Start Date [...] EDT 50 mg oral completed Seroquel [facility] ([facility]) 24 HR Bupropion Hydrochloride 300 MG Extended Release Oral Tablet [Wellbutrin] Wellbutrin XL 05/28/2020 12:00:00 AM EDT 300 mg oral comp leted Wellbutrin XL [facility] ([facility]) quetiapine 50 MG Oral Tablet [Seroquel] Seroquel 05/28/2020 12: 00:00 AM EDT 50 mg oral completed Seroquel [facility] ([facility]) 24 HR Bupropion Hydrochloride 300 MG Extended Release Oral Tablet [Wellbutrin] Wellbutrin XL 05/28/2020 12:00:00 AM EDT 300 mg oral comp leted Wellbutrin XL [facility] ([facility]) 24 HR Desvenlafaxine 100 MG Extended Release Oral Tablet [Pr istiq] Pristiq 05/28/2020 12:00:00 AM EDT 100 mg oral completed Pristiq [facility] ([facility]) quetiapine 200 MG Oral Tablet [Seroquel] Seroquel 05/28/2020 12 :00:00 AM EDT 200 mg oral completed Seroquel [facility] ([facility]) quetiapine 200 MG Oral Tablet [Seroquel] Seroquel 05/28/2020 12 :00:00 AM EDT 200 mg oral completed Seroquel [facility] ([facility]) 24 HR Desvenlafaxine 100 MG Extended Release Oral Tablet [Pr istiq] Pristiq 05/28/2020 12:00:00 AM EDT 100 mg oral completed Pristiq [facility] ([facility]) 100 mg 05/17/2020 12:00:00 [...] Hydrocodone Bitartrate 5 MG Oral Tabl et [Atco] Atco 02/27/2020 12:00:00 AM EST ORAL completed [facility] ([facility], ) 100 mg 02/23/2020 12:00:00 AM [...] [facility]apine 50 MG Oral Tablet QUETIAPINE FUMARATE [...] BY MOUTH EVERY MORNING SOLD: 03/05/2020 [facility] quetiapine 200 MG [...] BY MOUTH EVERY DAY SOLD: 04/10/2020 [facility] quetiapine 200 MG Oral Tablet [...] ([facility]) quetiapine 50 MG [...] 01/10/2020 12:00:00 AM EST ORAL completed [facility] ([facility], ) 24 HR Bupropion Hydrochloride 300 MG Extended Release Oral Tablet [Wellbutrin] Wellbutrin XL 01/09/2020 12:00:00 AM EST 300 mg oral comp leted Wellbutrin XL [facility] ([facility]) 24 HR Bupropion Hydrochloride 300 MG Extended Release Oral Tablet [Wellbutrin] Wellbutrin XL 01/09/2020 12:00:00 AM EST 300 mg oral comp leted Wellbutrin XL [facility] ([facility]) 24 HR Bupropion Hydrochloride 300 [...] EDT 100 mg oral completed Pristiq [facility] ([facility]) 24 HR Bupropion Hydrochloride 150 MG [...] EDT 100 mg oral completed Pristiq [facility] ([facility]) quetiapine 200 MG Oral Tablet QUETIAPINE FUMARATE 11/30/2019 12: 00:00 AM EDT tablet 30 TAKE ONE TABLET BY MOUTH EVERY D AY AT BEDTIME TAKE ONE TABLET BY MOUTH EVERY DAY AT BEDTIME SOLD: 11/30/2019 [facility] 24 HR Bupropion Hydrochloride 150 MG Extended Release Oral Tablet [Wellbutrin] Wellbutrin XL 11/30/2019 12:00:00 AM EDT 150 mg oral comp leted Wellbutrin XL [facility] ([facility]) 24 HR Bupropion Hydrochloride 150 MG Extended Release Oral Tablet [Wellbutrin] Wellbutrin XL 11/30/2019 12:00:00 AM EDT 150 mg oral comp leted Wellbutrin XL [facility] ([facility]) 75 mg 10/28/2019 12:00:00 AM EDT tablet 30 TAKE ONE TABLET BY MOUTH EVERY DAY TAKE ONE TABLET BY MOUTH EVERY DAY SOLD: 10/31/2019 [facility] Bupropion Hydrochloride 75 MG Oral Tablet bupropion HCl 10/27/2019 12:00:00 AM EDT 75 mg oral completed bupropion HCl [facility] ([facility]) Bupropion Hydrochloride 75 MG Oral Tablet bupropion HCl 10/27/2019 12:00:00 AM EDT 75 mg oral completed bupropion HCl [facility] ([facility]) 24 HR Desvenlafaxine 100 MG Extended Release Oral Tablet [Pr istiq] Pristiq 09/09/2019 12:00:00 AM EDT 100 mg oral completed Pristiq [facility] ([facility]) 24 HR Desvenlafaxine 100 MG Extended Release Oral Tablet [Pr istiq] Pristiq 09/09/2019 12:00:00 AM EDT 100 mg oral completed Pristiq [facility] ([facility]) 24 HR Desvenlafaxine 50 MG Extended Release Oral Tablet [Elizabeth stiq] Pristiq 09/09/2019 12:00:00 AM EDT 50 mg oral completed Pristiq [facility] ([facility]) 24 HR Desvenlafaxine 50 MG Extended Release Oral Tablet [Elizabeth stiq] Pristiq 09/09/2019 12:00:00 AM EDT 50 mg oral completed Pristiq [facility] ([facility]) 2 % 08/31/2019 12:00:00 AM EDT cream 30 APPLY TO FEET TWO TIMES A DAY FOR 8 WEEKS APPLY TO FEET TWO TIMES A DAY FOR 8 WEEKS SOLD: 10/31/2019 [facility] quetiapine 200 MG Oral Tablet [Seroquel] Seroquel 08/01/2019 12 :00:00 AM EDT 200 mg oral completed Seroquel [facility] ([facility]) quetiapine 200 MG Oral Tablet [Seroquel] Seroquel 08/01/2019 12 :00:00 AM EDT 200 mg oral completed Seroquel [facility] ([facility]) Insurance Providers Payer name Policy type / Coverage type Policy ID Covered republican ID Covered republican's relationship to ochoa Policy Ochoa Plan Information [employer] [id number] [place] [id number] Ghi/Emblem HLTH (pr) Medigap Part B [id number] 0 [id number] Ghi/Emblem HLTH (pr) Medigap Part B [id number] BS Roya Hmo Blue Option Medigap Part B [id number] Self BS Roya Hmo Blue Option Medigap Part B [id number] Self [id number] [facility] Community Plan Medigap Part B [id number] Self [id number] [facility] Community Plan Commercial [id number] Self UHC I [id number] Self [id number] MEDICAID M [id number] Self [id number] UNHC COMMUNITY PLAN MCDHMO [id number] SP [id number] [facility] MEDICAID [id number] Nori [id number] UNHC COMMUNITY PLAN MCDHMO [id number] SP [id number] [facility] Roya/MCR Health Maintenance Organization (HMO) [id number] Self [id number] [facility] Roy[facility] Health Maintenance Organization (HMO) [id number] Self [id number] [facility] Health Maintenance Organization (HMO) [id number] Self [id number] [facility] Health Maintenance Organization (HMO) [id number] Self [id number] [facility] Roy[facility] Health Maintenance Organization (HMO) [id number] Self [id number] [facility] Health Maintenance Organization (HMO) [id number] Self [id number] [employer] COMMUNITY PLAN MCDHMO [id number] SP [id number] Medicaid [place] Medicaid [id number] Self [id number] [facility] Roy[facility] Health Maintenance Organization (HMO) [id number] Self [id number] [employer] COMMUNITY PLAN MCDHMO [id number] SP [id number] Medicaid [place] Medicaid [id number] Self [facility](MCAID) O [id number] S [id number] UNHC COMMUNITY PLAN MCDHMO [id number] SP [id number] MEDICAID P [id number] S [id number] MEDICAID [id number] SP [id number] BLUE [employer]OSS [employer] PLAN [id number] SP [id number] SELF PAY UNAVAILABLE SP UNAVAILA [facility] [employer] [id number] [place] [id number] [facility] CLM#[id number] [facility] CLM#[id number] [employer] BCBS P [id number] S [id number] UNHC COMMUNITY PLAN MCDHMO [id number] SP [id number] [facility](MCAID) O [id number] S [id number] ANSI-Medicaid [id number] ANSI-Medicaid [id number] ANSI-Medicaid [id number] [facility] MEDICAID PI PI [facility] Health Maintenance Organization (HMO) [id number] Self [id number] [facility] Commercial [id number] Self [id number] [facility] Health Maintenance Organization (HMO) [id number] Self [id number] [facility] [id number] SP [id number] [facility] Health Maintenance Organization (HMO) [id number] Self [id number] [facility] Health Maintenance Organization (O) [id number] Self [id number] Problems, Conditions, and Diagnoses No Information Surgeries/Procedures Procedure Description Date Indications Data Source(s) Individual psychotherapy (regime/therapy) 09/04/2020 1 2:00:[address] [facility]) Evaluation AND/OR management - established patient (procedur e) 08/27/2020 12:00:00 AM EDT [facility] ([facility]) Evaluation AND/OR management - established patient (procedur e) 08/27/2020 12:00:00 AM EDT [facility] ([facility]) Individual psychotherapy (regime/therapy) 07/10/2020 1 2:00:00 AM [facility] Individual psychotherapy (regime/therapy) 07/10/2020 1 2:00:00 AM EDT [facility]) Individual psychotherapy (regime/therapy) 07/10/2020 1 2:00:00 AM EDT [facility]) Individual psychotherapy (regime/therapy) 07/10/2020 1 2:00:[address] [facility]) Individual psychotherapy (regime/therapy) 07/10/2020 1 2:00:[address] [facility]) Individual psychotherapy (regime/therapy) 07/10/2020 1 2:00:00 AM EDT [facility] ([facility]) Individual psychotherapy (regime/therapy) 06/13/2020 1 2:00:00 AM EDT [facility] ([facility]) Individual psychotherapy (regime/therapy) 06/13/2020 1 2:00:00 AM EDT [facility] ([facility]) Individual psychotherapy (regime/therapy) 06/13/2020 1 2:00:00 AM EDT [facility] ([facility]) Individual psychotherapy (regime/therapy) 06/13/2020 1 2:00:00 AM EDT [facility] ([facility]) Evaluation AND/OR management - established patient (procedur e) 05/28/2020 12:00:00 AM EDT [facility] ([facility]) Evaluation AND/OR management - established patient (procedur e) 05/28/2020 12:00:00 AM EDT [facility] ([facility]) Evaluation AND/OR management - established patient (procedur e) 05/28/2020 12:00:00 AM EDT [facility] ([facility]) Evaluation AND/OR management - established patient (procedur e) 05/28/2020 12:00:00 AM EDT [facility] ([facility]) Individual psychotherapy (regime/therapy) 04/18/2020 1 2:00:00 AM EST [facility] ([facility]) Individual psychotherapy (regime/therapy) 04/18/2020 1 2:00:00 AM EST [facility] ([facility]) Individual psychotherapy (regime/therapy) 04/18/2020 1 2:00:00 AM EST [facility] ([facility]) Individual psychotherapy (regime/therapy) 04/18/2020 1 2:00:00 AM EST [facility] ([facility]) Individual psychotherapy (regime/therapy) 03/28/2020 1 2:00:00 AM EST [facility] ([facility]) Individual psychotherapy (regime/therapy) 03/28/2020 1 2:00:00 AM EST [facility] ([facility]) Individual psychotherapy (regime/therapy) 03/28/2020 1 2:00:00 AM EST [facility] ([facility]) Individual psychotherapy (regime/therapy) 03/28/2020 1 2:00:00 AM EST [facility] ([facility]) Individual psychotherapy (regime/therapy) 03/12/2020 1 2:00:00 AM EST [facility] ([facility]) Individual psychotherapy (regime/therapy) 03/12/2020 1 2:00:00 AM EST [facility] ([facility]) Individual psychotherapy (regime/therapy) 03/12/2020 1 2:00:00 AM EST [facility] ([facility]) Individual psychotherapy (regime/therapy) 03/12/2020 1 2:00:00 AM EST [facility] ([facility]) Individual psychotherapy (regime/therapy) 03/12/2020 1 2:00:00 AM EST [facility] ([facility]) Individual psychotherapy (regime/therapy) 03/12/2020 1 2:00:00 AM EST [facility] ([facility]) Individual psychotherapy (regime/therapy) 03/12/2020 1 2:00:00 AM EST [facility] ([facility]) Individual psychotherapy (regime/therapy) 03/12/2020 1 2:00:00 AM EST [facility] ([facility]) Excise Pilonidal Cyst Or Sinus Extensive 03/05/2020 12 :00:00 AM EST [facility] ([facility], ) Evaluation AND/OR management - established patient (procedur e) 02/22/2020 12:00:00 AM EST [facility] ([facility]) Evaluation AND/OR management - established patient (procedur e) 02/22/2020 12:00:00 AM EST [facility] ([facility]) Evaluation AND/OR management - established patient (procedur e) 02/22/2020 12:00:00 AM EST [facility] ([facility]) Evaluation AND/OR management - established patient (procedur e) 02/22/2020 12:00:00 AM EST [facility] ([facility]) Incisional Biopsy Of Skin 02/02/2020 12:00:00 AM EST [facility] ([facility], ) Individual psychotherapy (regime/therapy) 01/10/2020 1 2:00:00 AM EST [facility] ([facility]) Individual psychotherapy (regime/therapy) 01/10/2020 1 2:00:00 AM EST [facility] ([facility]) Individual psychotherapy (regime/therapy) 01/10/2020 1 2:00:00 AM EST [facility] ([facility]) Individual psychotherapy (regime/therapy) 01/10/2020 1 2:00:00 AM EST [facility] ([facility]) X-Ray Sacrum & Coccyx Two Views 12/16/2019 12:00:00 AM EDT [facility] ([facility]) Individual psychotherapy (regime/therapy) 12/14/2019 1 2:00:00 AM EDT [facility] ([facility]) Individual psychotherapy (regime/therapy) 12/14/2019 1 2:00:00 AM EDT [facility] ([facility]) Individual psychotherapy (regime/therapy) 12/14/2019 1 2:00:00 AM EDT [facility] ([facility]) Individual psychotherapy (regime/therapy) 12/14/2019 1 2:00:00 AM EDT [facility] ([facility]) Evaluation AND/OR management - established patient (procedur e) 11/30/2019 12:00:00 AM EDT [facility] ([facility]) Evaluation AND/OR management - established patient (procedur e) 11/30/2019 12:00:00 AM EDT [facility] ([facility]) Evaluation AND/OR management - established patient (procedur e) 11/30/2019 12:00:00 AM EDT [facility] ([facility]) Evaluation AND/OR management - established patient (procedur e) 11/30/2019 12:00:00 AM EDT [facility] ([facility]) Individual psychotherapy (regime/therapy) 11/24/2019 1 2:00:00 AM EDT [facility] ([facility]) Individual psychotherapy (regime/therapy) 11/24/2019 1 2:00:00 AM EDT [facility]) Individual psychotherapy (regime/therapy) 11/24/2019 1 2:00:00 AM EDT [facility]) Individual psychotherapy (regime/therapy) 11/24/2019 1 2:00:00 AM EDT [facility]) Individual psychotherapy (regime/therapy) 10/27/2019 1 2:00:00 AM EDT [facility]) Individual psychotherapy (regime/therapy) 10/27/2019 1 2:00:00 AM EDT [facility]) Individual psychotherapy (regime/therapy) 10/27/2019 1 2:00:00 AM EDT [facility]) Individual psychotherapy (regime/therapy) 10/27/2019 1 2:00:00 AM EDT [facility]) Results ID Date Data Source [id number] 10/29/2020 02:19:00 AM EDT [facility] Name Value Range Interpretation Code Description Data Luiza rce(s) Supporting Document(s) SARS coronavirus 2 RNA [Presence] in Res piratory specimen by JOSE with probe detection NEGATIVE [facility] This lab was ordered by [facility] a nd reported by [facility]. ID Date Data Source [id number] 03/05/2020 09:30:00 AM EST [facility] ([facility], ) Name Value Range Interpretation Code Description Data Luiza rce(s) Supporting Document(s) Surgical pathology study Laboratory test result [facility] ([facility], ) FINAL DIAGNOSIS Pilonidal cyst, excision: [...] a large cystic area in subcutaneous tissue. Engineer Technical Staff in one. - 03/05/2020 - 1301 Signed Helena Valadez MD 03/06/2020 1743 ID Date Data Source [id number] 02/29/2020 10:00:00 AM EST [facility] Name Value Range Interpretation Code Description Data Luiza rce(s) Supporting Document(s) SARS coronavirus 2 RNA Not Detected [facility] This lab was ordered by [facility] and reported by [facility]. ID Date Data Source [id number] 02/02/2020 03:42:00 PM EST [facility] ([facility]) Name Value Range Interpretation Code Description Data Luiza rce(s) Supporting Document(s) Surgical pathology study Laboratory test result [facility] ([facility]) FINAL DIAGNOSIS Skin, coccyx, incision and drainage: Fragments of skin with predominantly chronic inflammation and scar. 02/06/2020 - 114 CLINICAL DIAGNOSIS Lesion, pilonidal cyst with abscess [...] Source(s) Body weight 266.38 [lb_av] 266.38 [lb_av] [facility] ([facility]) Systolic blood pressure 154 mm[Hg] 154 mm[Hg] [facility] ([facility]) Diastolic blood pressure 84 mm[Hg] 84 mm[Hg] [facility] ([facility]) Body mass index (BMI) [Ratio] 41.7 kg/m2 41.7 k g/m2 [facility] ([facility]) Body height 67 [in_i] 67 [in_i] [facility] ([facility]) 5'7" [place] body weight 148 [lb_av] 148 [facility] Body weight 120.828 kg 120.828 kg [facility] ([facility]) Body surface area Derived from formula 2.28 m2 2.28 m2 [facility] ([facility]) Heart rate 86 /min 86 /min [facility] ([facility]) Systolic blood pressure 137 mm[Hg] 137 mm[Hg[facility] Diastolic blood pressure 87 mm[Hg] 87 mm[Hg] [facility] ([facility]) Marsing body weight 148 [lb_av] 148 [lb_av] [facility] ([facility]) Body weight 120.204 kg 120.204 kg [facility] ([facility]) Body surface area Derived from formula 2.28 m2 2.28 m2 [facility] ([facility]) Body height 67 [in_i] 67 [in_i] [facility] ([facility]) 5'7" Body weight 265.00 [lb_av] 265.00 [lb_av] [facility] ([facility]) Body mass index (BMI) [Ratio] 41.5 kg/m2 41.5 k g/m2 [facility] ([facility]) Systolic blood pressure 147 mm[Hg] 147 mm[Hg] [facility] ([facility]) Diastolic blood pressure 96 mm[Hg] 96 mm[Hg] [facility] ([facility]) Heart rate 106 /min 106 /min [facility] ([facility]) Body height 67 [in_i] 67 [in_i] [facility] ([facility]) 5'7" Body weight 262.12 [lb_av] 262.12 [lb_av] [facility] ([facility]) Body mass index (BMI) [Ratio] 41.1 kg/m2 41.1 k g/m2 [facility] ([facility]) [place]ing body weight 148 [lb_av] 148 [lb_av] [facility] ([facility]) Body weight 118.900 kg 118.900 kg [facility] ([facility]) Body surface area Derived from formula 2.27 m2 2.27 m2 [facility] ([facility]) Systolic blood pressure 126 mm[Hg] 126 mm[facility]Hg[facility] Body weight 261.50 [lb_av] 261.50 [lb_av] [facility] ([facility]) Diastolic blood pressure 68 mm[Hg] 68 mm[Hg] [facility] ([facility]) Body height 67 [in_i] 67 [in_i] [facility] ([facility]) 5'7" Body mass index (BMI) [Ratio] 41.0 kg/m2 41.0 k g/m2 [facility] ([facility]) [place] body weight 148 [lb_av] 148 [lb_av] [facility] ([facility]) Body weight 118.616 kg 118.616 kg [facility] ([facility]) Body surface area Derived from formula 2.27 m2 2.27 m2 [facility] ([facility]) Systolic blood pressure 124 mm[Hg] 124 mm[Hg] [facility] ([facility]) Diastolic blood pressure 78 mm[Hg] 78 mm[Hg] [facility] ([facility]) Body height 67 [in_i] 67 [in_i] [facility] ([facility]) 5'7" Body weight 255.38 [lb_av] 255.38 [lb_av] [facility] ([facility]) Body mass index (BMI) [Ratio] 40.0 kg/m2 40.0 k g/m2 [facility] ([facility]) [place] body weight 148 [lb_av] 148 [lb_av] [facility] ([facility]) [facility] 115[facility]838 [facility] Body surface area Derived from formula 2.24 m2 2.24 m2 [facility] ([facility]) Body height 67.75 [in_i] 67.75 [in_i] [facility] ([facility]) 5'7.75" Body temperature 97.1 [degF] 97.1 [degF] [facility] ([facility]) Body weight 245.38 [lb_av] 245.38 [lb_av] [facility] ([facility]) Body mass index (BMI) [Ratio] 37.6 kg/m2 37.6 k g/m2 [facility] ([facility]) Patient Treatment Plan of Care Planned Activity Planned Date Details Description Data Source (s) 24 HR Bupropion Hydrochloride 300 MG Extended Release Oral Tablet [Wellbutrin] 05/28/2020 12:00:00 AM EDT [facility] ([facility]) quetiapine 50 MG Oral Tablet [Seroquel] 05/28/2020 12:00:00 AM EDT [facility] ([facility]) quetiapine 200 MG Oral Tablet [Seroquel] 05/28/2020 12:00:00 AM EDT [facility] ([facility]) 24 HR Desvenlafaxine 100 MG Extended Release Oral Tabl et [Pristiq] 05/28/2020 12:00:00 AM EDT [facility] ([facility]) quetiapine 200 MG Oral Tablet [Seroquel] 05/28/2020 12:00:00 AM EDT [facility] ([facility]) quetiapine 50 MG Oral Tablet [Seroquel] 05/28/2020 12:00:00 AM EDT [facility] ([facility]) 24 HR Desvenlafaxine 100 MG Extended Release Oral Tabl et [Pristiq] 05/28/2020 12:00:00 AM EDT [facility] ([facility]) 24 HR Bupropion Hydrochloride 300 MG Extended Release Oral Tablet [Wellbutrin] 05/28/2020 12:00:00 AM EDT [facility] ([facility]) quetiapine 50 MG Oral Tablet [Seroquel] 02/22/2020 12:00:00 AM EST [facility] ([facility]) quetiapine 50 MG Oral Tablet [Seroquel] 02/22/2020 12:00:[address] [facility] 24 HR Bupropion Hydrochloride 300 MG Extended Release Oral Tablet [Wellbutrin] 01/09/2020 12:00:[address] [facility] 24 HR Bupropion Hydrochloride 300 MG Extended Release Oral Tablet [Wellbutrin] 01/09/2020 12:00:[facility] 24 HR Desvenlafaxine 100 MG Extended Release Oral Tabl et [Pristiq] 11/30/2019 12:00:[address] [facility] 24 HR Bupropion Hydrochloride 150 MG Extended Release Oral Tablet [Wellbutrin] 11/30/2019 12:00:[address] [facility] 24 HR Desvenlafaxine 100 MG Extended Release Oral Tabl et [Pristiq] 11/30/2019 12:00:[address] [facility] 24 HR Bupropion Hydrochloride 150 MG Extended Release Oral Tablet [Wellbutrin] 11/30/2019 12:00:[address] [facility] Bupropion Hydrochloride 75 MG Oral Tablet 10/27/2019 12:00:00 AM ED T [facility] ([facility]) Bupropion Hydrochloride 75 MG Oral Tablet 10/27/2019 12:00:00 AM ED T [facility] ([facility]) 24 HR Desvenlafaxine 50 MG Extended Release Oral Table t [Pristiq] 09/09/2019 12:00:[facility] 24 HR Desvenlafaxine 100 MG Extended Release Oral Tabl et [Pristiq] 09/09/2019 12:00:[address] [facility] 24 HR Desvenlafaxine 100 MG Extended Release Oral Tabl et [Pristiq] 09/09/2019 12:00:[address] [facility] 24 HR Desvenlafaxine 50 MG Extended Release Oral Table t [Pristiq] 09/09/2019 12:00:00 AM EDT [facility] ([facility]) quetiapine 200 MG Oral Tablet [Seroquel] 08/01/2019 12:00:00 AM EDT [facility] ([facility]) quetiapine 200 MG Oral Tablet [Seroquel] 08/01/2019 12:00:00 AM EDT [facility] ([facility])
--- NOTE | 2020-12-09 02:01 | REPVR ---
PROCEDURE INFORMATION: Exam: CT Abdomen And Pelvis Without Contrast Exam date and time: 12/09/2020 12:26 AM Age: 39 years old Clinical indication: Abdominal pain; Flank; Right; Additional info: Right flank pain TECHNIQUE: Imaging protocol: Computed tomography of the abdomen and pelvis without contrast. Radiation optimization: All CT scans at this facility use at least one of these dose optimization techniques: automated exposure control; mA and/or kV adjustment per patient size (includes targeted exams where dose is matched to clinical indication); or iterative reconstruction. COMPARISON: CT ABD PELVIS W/O CONTRAST 09/08/2018 5:46 PM Study limitations: Evaluation for mass, inflammatory change, including bowel wall/fold thickening, viscera, and vasculature, is suboptimal without contrast. FINDINGS: LUNG BASES: No infiltrate or effusion. VASCULAR: No abdominoaortic aneurysm or retroperitoneal hematoma. There is calcified atherosclerosis. Vascular patency is not evaluated on this exam. PERITONEAL : No free air or free fluid. GI: No hiatal hernia. The stomach contains some fluid and gas. The stomach is not sufficiently distended to evaluate wall thickening. No appearance of a small-bowel obstruction. Evaluation for bowel wall and fold thickening is compromised on this study, secondary to lack of any contrast. There is slight haziness within the small bowel mesentery and multiple borderline mesenteric lymph nodes. 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 Mild gastroenteritis may also be a possibility. There is prominent submucosal fat within the colon. This may be secondary to body habitus or steroid use. Portions of the colon appear thick walled, however this may be artifactual secondary to insufficient distention. No evidence of acute diverticulitis. The appendix does not appear inflamed. HEPATOBILIARY, PANCREAS, SPLEEN: Hepatic length is 17.5 cm. Hepatic attenuation is consistent with mild steatosis. Evaluation of hepatic parenchyma is limited without contrast. Surgical clips are seen in the gallbladder fossa. No pancreatic inflammation. Spleen not enlarged. ADRENALS, KIDNEYS, BLADDER: Adrenals within normal limits. No hydronephrosis. Punctate nonobstructive right lower pole renal calculus. No perinephric stranding or fluid. No ureteral calculi. No calculi within the urinary bladder. The urinary bladder appears slightly thick-walled, however this may be artifactual secondary to insufficient distention. Clinical correlation with any symptoms. Mild prominence of the prostate impressing along the base of the bladder. Clinical follow-up is advised. MUSCULOSKELETAL: There are multiple bilateral femoral lymph nodes up to 12 mm in short axis, left greater than right, with mild perinodal haziness. There are distal iliac chain and pelvic sidewall lymph nodes bilaterally measuring up to 2.2 cm in maximal dimension. The significance of these lymph nodes is uncertain, however appearance is similar to the prior study. Clinical correlation and clinical follow-up is advised.. Mild degenerative changes of the spine and within the pelvis. IMPRESSION: No hydronephrosis or obstructive genitourinary calculi. Nonobstructive punctate right lower pole renal calculus. Other genitourinary findings discussed above. No free-air, free-fluid or focal mesenteric inflammation. Nonspecific gastrointestinal findings discussed above. Other findings and limitations discussed above. Electronically signed by: Michael Francisco On 12/09/2020 02:00:27 AM
[2020-12-09] MEDS ORDERED: KETO10TAB PO (02:12)
[2020-12-09 02:32] VITALS: BP 130/81
--- NOTE | 2020-12-09 06:43 | ED PDOC ---
Post-Departure Follow-Up certified letter sent pertaining to radiology report Danna Marroquin MD Dec 09, 2020 06:43
== END 2020-12-09 02:34 | disposition home or self-care (01) ==
LOC: M ED 19:04
DX: R10.9 Unspecified abdominal pain (principal); N20.0 Calculus of kidney; R11.0 Nausea; F17.200 Nicotine dependence, unspecified, uncomplicated; Z79.899 Other long term (current) drug therapy
CPT/HCPCS: 74176; 80048; 81001; 85025; 96361; 96374; 96375; 99284; J1885; J2405

== ENCOUNTER → 2022-01-06 | Outpatient (REF) | payer OTHER, MEDICAID ==
[~2022-01-06] MED LIST changes: -DOXY-350 PO; +DOXY-444 PO; +KETO10TAB PO; +QUET200T2 PO
[2022-01-06 14:24] LABS: ALT/SGPT 24 U/L (7.0-40); BILIRUBIN,TOTAL 0.5 MG/DL (0.3-1.2); BLOOD UREA NITROGEN 13 MG/DL (9-23); CALCIUM LEVEL 8.3 MG/DL (8.5-10.1); CARBON DIOXIDE LEVEL 25 MMOL/L (20-31); CHLORIDE LEVEL 106 MMOL/L (98-107); CHOLESTEROL LEVEL 167 MG/DL (<200); CHOLESTEROL RISK RATIO 4.06 (<5); CREATININE FOR GFR 0.82 MG/DL (0.70-1.30); GLOMERULAR FILTRATION RATE > 60.0 (>60); GLUCOSE, FASTING 115 MG/DL (60-100); HDL CHOLESTEROL 41.1 MG/DL (>40); LDL CHOLESTEROL 110.9 MG/DL (<100); NON-HDL-C 126 MG/DL; POTASSIUM SERUM 4.4 MMOL/L (3.5-5.1); SODIUM LEVEL 141 MMOL/L (136-145); THYROID STIMULATING HORMONE 0.679 uIU/ML (0.55-4.78); TOTAL PROTEIN 6.4 G/DL (5.7-8.2); TRIGLYCERIDES LEVEL 75 MG/DL (<150)
== END ==
LOC: M LAB REF 12:40
PROVIDERS: ATTEND Family Medicine Addiction Medicine
DX: E66.3 Overweight (principal)

== ENCOUNTER → 2022-06-30 | Outpatient (REF) | payer OTHER, MEDICAID ==
[~2022-06-30] MED LIST changes: -PAXI30TA11 PO; +PAXI30TA12 PO
[2022-06-30 17:24] LABS: ALBUMIN 3.6 G/DL (3.2-5.2); ALKALINE PHOSPHATASE 40 U/L (46-116); ALT/SGPT < 9 U/L (7.0-40); AST/SGOT 21 U/L (<34); BILIRUBIN,TOTAL 0.3 MG/DL (0.3-1.2); BLOOD UREA NITROGEN 16 MG/DL (9-23); CALCIUM LEVEL 8.4 MG/DL (8.5-10.1); CARBON DIOXIDE LEVEL 25 MMOL/L (20-31); CHLORIDE LEVEL 109 MMOL/L (98-107); CREATININE FOR GFR 0.82 MG/DL (0.70-1.30); GLOMERULAR FILTRATION RATE > 60.0 (>60); GLUCOSE, FASTING 93 MG/DL (60-100); SODIUM LEVEL 141 MMOL/L (136-145); TOTAL PROTEIN 6.4 G/DL (5.7-8.2)
[2022-06-30 17:25] LABS: THYROID STIMULATING HORMONE 0.616 uIU/ML (0.55-4.78)
[2022-06-30 17:56] LABS: HEMOGLOBIN A1c 5.3 % (4.0-6.0)
== END ==
LOC: M LAB REF 16:26
PROVIDERS: ATTEND Family Medicine Addiction Medicine
DX: E66.3 Overweight (principal); R73.03 Prediabetes

== ENCOUNTER → 2023-08-05 | Outpatient (REF) | payer OTHER, MEDICAID ==
[~2023-08-05] MED LIST changes: +DOXY-323 PO; +DOXY-440 PO; -DOXY-443 PO; -DOXY-444 PO; -EFFE150C2 PO; +EFFE150C3 PO
[2023-08-05 19:25] LABS: ALBUMIN 3.8 G/DL (3.2-5.2); ALKALINE PHOSPHATASE 51 U/L (46-116); ALT/SGPT 26 U/L (7.0-40); AST/SGOT 10 U/L (<34); BILIRUBIN,TOTAL 0.4 MG/DL (0.3-1.2); BLOOD UREA NITROGEN 15 MG/DL (9-23); CALCIUM LEVEL 9.3 MG/DL (8.5-10.1); CARBON DIOXIDE LEVEL 26 MMOL/L (20-31); CHLORIDE LEVEL 109 MMOL/L (98-107); CHOLESTEROL LEVEL 151 MG/DL (<200); CHOLESTEROL RISK RATIO 5.11 (<5); CREATININE FOR GFR 0.72 MG/DL (0.70-1.30); GLOMERULAR FILTRATION RATE > 60.0 (>60); GLUCOSE, FASTING 115 MG/DL (60-100); HDL CHOLESTEROL 29.5 MG/DL (>40); LDL CHOLESTEROL 87.3 MG/DL (<100); NON-HDL-C 121.5 MG/DL; POTASSIUM SERUM 4.2 MMOL/L (3.5-5.1); SODIUM LEVEL 140 MMOL/L (136-145); TOTAL PROTEIN 6.8 G/DL (5.7-8.2); TRIGLYCERIDES LEVEL 171 MG/DL (<150)
[2023-08-05 19:27] LABS: THYROID STIMULATING HORMONE 0.514 uIU/ML (0.55-4.78)
== END ==
LOC: M LAB REF 16:14
PROVIDERS: ATTEND Family Medicine Addiction Medicine
DX: E66.9 Obesity, unspecified (principal); Z68.38 Body mass index [BMI] 38.0-38.9, adult

== ENCOUNTER → 2023-08-07 | Outpatient (REF) | payer OTHER, MEDICAID ==
[2023-08-07 13:30] LABS: FREE T4 1.18 NG/DL (0.89-1.76); THYROID STIMULATING HORMONE 0.649 uIU/ML (0.55-4.78)
== END ==
LOC: M LAB REF 12:17
PROVIDERS: ATTEND Family Medicine Addiction Medicine
DX: R94.6 Abnormal results of thyroid function studies (principal)

== ENCOUNTER 2025-02-04 17:03 | Emergency (ER) | payer OTHER, MEDICAID ==
[~2025-02-04] VITALS: Ht 172.7 cm; Wt 114.7 kg
[~2025-02-04 17:03] MED LIST changes: -BAYE325T12 PO; +BAYE325T2 PO; -DOXY-323 PO; +DOXY-441 PO; -ELIM5CRE2 TOP; -FLOM0.4C39 PO; +PERM60CR8 TOP; +TAMS-18 PO
[2025-02-04 19:34] LABS: BASO # 0.0 10^3/uL (0.0-0.2); BASO % 0.4 % (0.0-1.0); EOS # 0.2 10^3/uL (0.0-0.5); EOS % 2.2 % (0.0-3.0); LYMPH # 2.3 10^3/uL (1.5-5.0); LYMPH % 25.9 % (24.0-44.0); MONO # 0.7 10^3/uL (0.0-0.8); MONO % 8.0 % (2.0-8.0); NEUTROPHILS # 5.6 10^3/uL (1.5-8.5); NEUTROPHILS % 62.7 % (36.0-66.0); PLATELET COUNT, AUTOMATED 227 10^3/uL (150-450)
[2025-02-04] MEDS: KETOROLAC 30 MG/ML 1 ML VIAL IM ONE (19:39)
[2025-02-04 20:01] LABS: KETONE, URINE AUTO RFX NEGATIVE (NEGATIVE); LEUKOCYTE ESTERASE UR AUTO RFX NEGATIVE (NEGATIVE); MUCUS, URINE RFX SMALL (NEGATIVE); NITRITE, URINE AUTO RFX NEGATIVE (NEGATIVE); RBC, URINE AUTO RFX 0 /HPF (0-3); SQUAM EPITHELIAL CELL UR AURFX 0 /HPF (0-6); WBC, URINE AUTO RFX 0 /HPF (0-3)
[2025-02-04 20:05] LABS: ALT/SGPT 21 U/L (7.0-40); AST/SGOT 18 U/L (<34); CALCIUM LEVEL 8.9 MG/DL (8.5-10.1); CARBON DIOXIDE LEVEL 26 MMOL/L (20-31); CHLORIDE LEVEL 108 MMOL/L (98-107); CREATININE FOR GFR 0.71 MG/DL (0.70-1.30); GLOMERULAR FILTRATION RATE > 90.0 (>60); POTASSIUM SERUM 4.2 MMOL/L (3.5-5.1); SODIUM LEVEL 142 MMOL/L (136-145)
[2025-02-04 20:12] VITALS: TEMP 96.8
[2025-02-04 21:20] VITALS: BP 112/64; O2SAT 98
[2025-02-04] MEDS ORDERED: METH-1164 PO (22:14)
== END 2025-02-04 22:17 | disposition home or self-care (01) ==
LOC: M ED 17:03
DX: R10.9 Unspecified abdominal pain (principal); F41.9 Anxiety disorder, unspecified; F90.9 Attention-deficit hyperactivity disorder, unspecified type; F32.A Depression, unspecified; F63.81 Intermittent explosive disorder; F17.200 Nicotine dependence, unspecified, uncomplicated; Z87.442 Personal history of urinary calculi; Z86.79 Personal history of other diseases of the circulatory system; Z79.899 Other long term (current) drug therapy
CPT/HCPCS: 74176; 80048; 80076; 81001; 83690; 85025; 96372; 99284; J1885